=== PATIENT | male | born 1940 | race Caucasian/White ===

== ENCOUNTER → 2017-10-26 07:43 | Outpatient (CLI) | payer MEDICARE, SELFPAY ==
[2017-10-26 09:49] LABS: AST(SGOT) 16 U/L (15-37); Alanine Aminotransfer ALT/SGPT 23 U/L (16-61); Albumin, Serum 3.7 g/dL (3.2-5.0); Alkaline Phosphatase 75 U/L (45-117); Bilirubin, Direct 0.16 mg/dL (0.00-0.30); Cholesterol 151 mg/dL (200); High Density Lipoprotein 45 mg/dL; Protein, Total 6.7 g/dL (6.4-8.2); Triglycerides 112 mg/dL; Very Low Density Lipoprotein 22 mg/dL (5-40)
== END ==
PROVIDERS: Family Provider Family Medicine; PCP Family Medicine; Visit Provider Internal Medicine Cardiovascular Disease
DX: E78.5 Hyperlipidemia, unspecified (principal); I25.10 Atherosclerotic heart disease of native coronary artery without angina pectoris
CPT/HCPCS: 36415; 80061; 80076

== ENCOUNTER → 2018-02-08 12:11 | Outpatient (CLI) | payer MEDICARE, SELFPAY ==
[2017-10-30 10:09] VITALS: BMI 31.1
[2018-02-08 14:21] LABS: Absolute Lymphocyte Count 1.25 X10^3/ul (0.83-4.51); Absolute Neutrophil Count 3.3 X10^3/uL (2.0-7.7); Basophil# 0.03 X10^3/uL; Basophil% 0.6 % (0-1); Eosinophil# 0.12 X10^3/uL; Eosinophils% 2.4 % (0-5); Hematocrit 44.2 % (40-54); Hemoglobin 14.7 g/dl (13.0-16.5); Lymphocyte # 1.25 X10^3/ul (4.0); Lymphocyte % 24.5 % (19-41); Mean Corp Hgb Conc 33.3 g/gl (32-36); Mean Corpuscular Volume 99.1 fL (80-94); Mean Platelet Vol. 11.1 fl (6.2-12.0); Monocyte# 0.43 X10^3/uL; Monocyte% 8.4 % (0-10); Neutrophil # 3.27 X10^3/uL (2.7-7.7); Neutrophil % 64.1 % (47-70); Platelet Count 200 K/mm3 (150-450); RBC Distribution Width CV 14.3 % (11.6-14.6); RBC Distribution Width SD 51.5 fl (35.1-43.9); Red Blood Count 4.46 M/mm3 (4.6-6.2); White Blood Count 5.1 K/mm3 (4.4-11.0)
[2018-02-08 14:29] LABS: POSITIVE COUNT NO; POSITIVE DIFFERENTIAL NO; POSITIVE MORPHOLOGY NO
[2018-02-08 14:33] LABS: Erythrocyte Sedimentation Rate 14 mm/hr (0-20)
[2018-02-08 14:39] LABS: Vitamin B12 390 pg/mL (211-911); Vitamin D,25 Hydroxy 31.4 ng/mL (29.95-100.01)
[2018-02-08 14:49] LABS: ALB/GLOB Ratio 1.2 RATIO (0.9-2.4); AST(SGOT) 20 U/L (15-37); Alanine Aminotransfer ALT/SGPT 28 U/L (16-61); Albumin, Serum 3.7 g/dL (3.2-5.0); Alkaline Phosphatase 80 U/L (45-117); Anion Gap 11 (5-15); BUN 16 mg/dL (7-18); BUN/Creat Ratio 18.4 RATIO (10-20); Calcium,Total 8.9 mg/dL (8.5-10.1); Chloride 103 mmol/L (98-107); Creatinine, Serum 0.87 mg/dL (0.70-1.30); EST Glomerular Filtration Rate 90 mL/min (>60); Est Glom Filt Rate - Afr Amer 109 mL/min (>60); Globulin 3.2 g/dL (2.2-4.2); Glucose 82 mg/dL (74-106); Iron 88 ug/dL (65-175); Potassium 4.2 mmol/L (3.5-5.1); Protein, Total 6.9 g/dL (6.4-8.2); Sodium Level 141 mmol/L (136-145); Thyroid Stim Hormone (TSH) 4.25 uIU/mL (0.358-3.74)
[2018-02-09 08:49] LABS: Free T3 2.2 pg/mL (2.18-3.98); T4 Free Direct 0.78 ng/dL (0.76-1.46)
== END ==
PROVIDERS: Family Provider Family Medicine; PCP Family Medicine; Visit Provider Family Medicine
DX: R41.3 Other amnesia (principal); Z86.73 Personal history of transient ischemic attack (TIA), and cerebral infarction without residual deficits; R79.89 Other specified abnormal findings of blood chemistry; E55.9 Vitamin D deficiency, unspecified
CPT/HCPCS: 36415; 80053; 82306; 82607; 83540; 84439; 84443; 84481; 85025; 85652

== ENCOUNTER → 2018-02-26 12:59 | Outpatient (CLI) | payer MEDICARE, SELFPAY ==
--- NOTE | 2018-02-26 13:08 | CDU_ITS ---
Reason For Study: TIA Rt. Velocities/BP Lt. Velocities/BP Prox CCA 104.0/12.3 cm/sec. Prox CCA 103.0/15.7 cm/sec. Mid CCA 100.0/15.2 cm/sec. Mid CCA 71.5/16.5 cm/sec. Dist CCA 103.0/17.0 cm/sec. Dist CCA 73.3/14.1 cm/sec. Prox ICA 86.1/12.1 cm/sec. Prox ICA 57.4/13.0 cm/sec. Mid ICA 72.7/16.4 cm/sec. Mid ICA 94.4/27.6 cm/sec. Dist ICA 84.4/18.2 cm/sec. Dist ICA 58.0/15.5 cm/sec. Rt. ICA/CCA = 86.1/100.0=0.9. Lt. ICA/CCA = 94.4/71.5=1.3. Prox ECA 141.0/9.43 cm/sec. Prox ECA 123.0/11.7 cm/sec. Rt. Vert. 41.2/9.43 cm/sec. Lt. Vert. 44.41/10.6 cm/sec. Right Extracranial There is intimal thickening but no significant atherosclerotic plaque noted in the right common carotid artery. There is intimal thickening but no significant atherosclerotic plaque noted in the right internal carotid artery. There is no significant atherosclerotic plaque noted in the right external carotid artery. Antegrade flow is noted in the right vertebral artery. Left Extracranial There is homogeneous, smooth atherosclerotic plaque noted in the left common carotid artery. There is intimal thickening but no significant atherosclerotic plaque noted in the left internal carotid artery. There is intimal thickening but no significant atherosclerotic plaque noted in the left external carotid artery. Antegrade flow is noted in the left vertebral artery. Interpretation Summary No significant atherosclerotic plaque or stenosis noted in the internal carotid arteries bilaterally. Flow within the vertebral arteries is antegrade bilaterally. Ordering Physician: Baldomero Yen Referring Physician: Baldomero Yen Performed By: Poppy Burch, DICK, RVT
--- NOTE | 2018-02-26 13:34 | CT_ITS ---
STUDY: CT BRAIN WITHOUT CONTRAST REASON FOR EXAM: Male, 77 years old. TIA RADIATION DOSAGE (If Supplied By Facility): CTDIvol = ( 60.81 ) mGy, DLP = ( 1021.47 ) mGycm TECHNIQUE: Transaxial CT imaging of the brain was performed without administration of intravenous contrast material. Individualized dose optimization techniques were used for this CT. COMPARISON: None. FINDINGS: There is cerebral atrophy with widening of the extra-axial spaces and ventricular dilatation. There are areas of decreased attenuation within the white matter tracts of the supratentorial brain, consistent with microvascular disease changes. There is no intracranial hemorrhage. There are no findings of an acute ischemic infarction. There is a right mastoid and middle ear opacification. Normal visualized paranasal sinuses. CT/Brain/Head without Contrast IMPRESSION: No acute intracranial abnormality. Right otomastoid disease. Electronically Signed: Yi De Leon MD at 10:11 EST Tel , Service support ,
--- OUTSIDE RECORDS SUMMARY | 2018-04-14 08:13 | XMS RPT_ITS ---
:1940 Author Organization OHIP Support Name Relationship Address Phone R Unavailable Unavailable Unavailable KENROY, SAMIRA Unavailable [address] + [place] [address] R Unavailable Unavailable Unavailable KENROY, SAMIRA Unavailable [address] + [place] [address] R Unavailable Unavailable Unavailable KENROY, SAMIRA Unavailable [address] + [place] [address] R Unavailable Unavailable Unavailable KENROY, SAMIRA Unavailable [address] + [place] [address] R Unavailable Unavailable Unavailable KENROY, SAMIRA Unavailable [address] + [place] [address] R Unavailable Unavailable Unavailable KENROY, SAMIAR Unavailable [address] + [place] [address] R Unavailable Unavailable Unavailable KENROY, SAMIRA Unavailable [address] + [place] [address] R Unavailable Unavailable Unavailable KENROY, SAMIRA Unavailable [address] + [place] [address] R Unavailable Unavailable Unavailable KENROY, SAMIRA Unavailable [address] + [place] [address] R Unavailable Unavailable Unavailable KENROY, SAMIRA Unavailable [address] + [place] [address] R Unavailable Unavailable Unavailable KENROY, SAMIRA Unavailable [address] + [place] [address] Care Team Providers Name Role Phone Baldomero Yen Attending Unavailable Baldomero Yen Referring Unavailable Baldomero Yen Primary Care Unavailable Baldomero Yen Attending Unavailable Baldomero Yen Referring Unavailable Baldomero Yen Primary Care Unavailable Richar Treadwell Attending Unavailable Ranney, Christopher Referring Unavailable Booth, Roxy Attending Unavailable Moodispaw, Richar Attending Unavailable Ranney, Christopher Referring Unavailable Joseph Alfaro Attending Unavailable Yovana, Baldomero Referring Unavailable Moodispaw, Richar Attending Unavailable Ranney, Christmercedeser Referring Unavailable Ranney, Christopher Primary Care Unavailable Moodispaw, Richar Attending Unavailable Moodispaw, Richar Referring Unavailable Ranney, Christopher Primary Care Unavailable Booth, Roxy Attending Unavailable Moodispaw, Richar Attending Unavailable Ranney, Christopher Referring Unavailable Ranney, Christopher Primary Care Unavailable Ranney, Christmercedeser Attending Unavailable Ranney, Christopher Primary Care Unavailable PROBLEMS PROBLEMS DATE TYPE CONDITION / CODE ATTENDING STATUS SOURCE 10/19/2017 Unknown I25.10 - Richar Treadwell Active [place] 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 without angina pectoris / I25.10(ICD-10) 10/19/2017 Unknown E78.5 - Richar Treadwell Active [place] Hyperlipidemia, Community unspecified / Hospital E78.5(ICD-10) Repository PROCEDURES PROCEDURES No Procedure Records FoundRESULTS RESULTS ECHOCARDIOGRAM COMPLETE Observed: 03/03/2018 Status: F Source: [place] 12:29 PM [facility] REPOSITORY [facility] Cardiovascular Services [address] [place] [address] Echo Complete 03/03/18 1000 MR#: [id number] Acct: [id number] Name: BUBBA JASMINE Rep #: [id number] : 1940 77 From: Joseph Alfaro MD Attending Dr: Baldomero Yen MD Status: REG CLI Ordering Dr: Michael Yen MD Date: 03/03/18 Location: [facility] Sex: M C Admitted: Reason For Study: TIA Procedure This was a 2D Doppler, Color Flow transthoracic echocardiogram. Exam performed in department. Left Ventricle Normal size and thickness. The estimated ejection fraction is 65 %. Stage 1 diastolic dysfunction. No regional wall motion abnormalities noted. Right Ventricle Mildly dilated right ventricle. Normal systolic function. Atria The left atrium is mildly enlarged. The right atrium is mildly enlarged. Normal atrial septum. Bubble contrast study negative for right to left interatrial shunt. Mitral Valve The mitral valve is structurally normal. No prolapse or stenosis seen. Trivial mitral valve insufficiency. Tricuspid Valve Normal tricuspid valve. Trivial tricuspid valve insufficiency. Right ventricular systolic pressure estimated to be 29 mmHg. Aortic Valve Trisinus/trileaflet aortic valve. Mild diffuse aortic valve thickening. Trivial aortic valve insufficiency. Pulmonic Valve Normal pulmonic valve. Great Vessels Normal aortic root. Normal arch. Normal inferior vena cava. Inferior vena cava collapse with sniff. Pericardium/Pleural No pericardial effusion. Medication 22 gauge I.V. with prn adaptor inserted into right arm. Performed a rapid injection of agitated mix of 9 cc saline and 1cc air to assess for atrial septal defect. MMode/2D Measurements AND Calculations LVIDd: 5.2 cm IVSd: 1.1 cm Ao root diam: 4.2 cm LVIDs: 2.9 cm LVPWd: 1.2 cm LA dimension: 3.7 cm RVDd: 3.8 cm FS: 43.6 % LAV(MOD-bp): 73.6 ml LA A4 area: 22.5 cm2 RA A4 area: 21.4 cm2 LAV(MOD-bp) Indexed: 34.2 ml/m2 LAV(MOD-sp2): 82.0 ml LAV(MOD-sp4): 65.3 ml Time Measurements MV dec time: 0.23 sec Doppler Measurements AND Calculations MV E max jose eduardo: 77.1 cm/sec Lat Peak E' Ojse Eduardo: 8.9 cm/sec Med Peak E' Jose Eduardo: 6.2 cm/sec MV A max jose eduardo: 90.2 cm/sec E/E' lat: 8.7 E/E' med: 12.4 MV E/A: 0.85 MV V2 max: 95.3 cm/sec MV P1/2t max jose eduardo: 88.6 cm/sec Ao V2 max: 128.3 cm/sec MV max P.6 mmHg MV P1/2t: 97.7 msec Ao max P.6 mmHg MV V2 mean: 48.6 cm/sec MV dec slope: 265.7 cm/sec2 Ao V2 mean: 88.9 cm/sec MV mean P.2 mmHg Ao mean P.6 mmHg MV V2 VTI: 33.2 cm MVA(P1/2t): 2.3 cm2 Ao V2 VTI: 31.2 cm AI max jose eduardo: 347.5 cm/sec LV V1 max: 91.1 cm/sec PA V2 max: 76.1 cm/sec AI max P.5 mmHg LV V1 max P.3 mmHg AI dec slope: 199.6 cm/sec2 LV V1 mean P.4 mmHg AI P1/2t: 509.9 msec LV V1 mean: 52.6 cm/sec LV V1 VTI: 22.3 cm TR max jose eduardo: 244.1 cm/sec TR max P.8 mmHg Interpretation Summary The estimated ejection fraction is 65 %. Stage 1 diastolic dysfunction. Mildly dilated right ventricle. The left atrium is mildly enlarged. Trivial mitral valve insufficiency. Trivial tricuspid valve insufficiency. Right ventricular systolic pressure estimated to be 29 mmHg. Bubble contrast study negative for right to left interatrial shunt. Trivial aortic valve insufficiency. There is no comparison study available. Ordering Physician: Baldomero Yen Referring Physician: Baldomero Yen Performed By: Lew Harrington RCS 03/03/18 1228 Date Joseph Alfaro MD CC: Baldomero Yen MD Date Dictated: 03/03/18 1000 Date Transcribed: 03/03/18 1228 Laundrette Owner: Signed CAROTID DUPLEX Observed: 02/28/2018 Status: F Source: [place] ULTRASOUND 10:11 AM [facility] REPOSITORY [facility] Cardiovascular Services [address] [place] [address] Carotid Duplex Ultrasound 02/26/18 1311 MR#: [id number] Acct: [id number] Name: BUBBA JASMINE Rep #: [id number] : 1940 77 From: Chico Mosher MD Attending Dr: Baldomero Yen MD Status: REG CLI Ordering Dr: Michael Yen MD Date: 02/26/18 Location: [facility] Sex: M C Admitted: Reason For Study: TIA Rt. Velocities/BP Lt. Velocities/BP Prox CCA 104.0/12.3 cm/sec. Prox CCA 103.0/15.7 cm/sec. Mid CCA 100.0/15.2 cm/sec. Mid CCA 71.5/16.5 cm/sec. Dist CCA 103.0/17.0 cm/sec. Dist CCA 73.3/14.1 cm/sec. Prox ICA 86.1/12.1 cm/sec. Prox ICA 57.4/13.0 cm/sec. Mid ICA 72.7/16.4 cm/sec. Mid ICA 94.4/27.6 cm/sec. Dist ICA 84.4/18.2 cm/sec. Dist ICA 58.0/15.5 cm/sec. Rt. ICA/CCA = 86.1/100.0=0.9. Lt. ICA/CCA = 94.4/71.5=1.3. Prox ECA 141.0/9.43 cm/sec. Prox ECA 123.0/11.7 cm/sec. Rt. Vert. 41.2/9.43 cm/sec. Lt. Vert. 44.41/10.6 cm/sec. Right Extracranial There is intimal thickening but no significant atherosclerotic plaque noted in the right common carotid artery. There is intimal thickening but no significant atherosclerotic plaque noted in the right internal carotid artery. There is no significant atherosclerotic plaque noted in the right external carotid artery. Antegrade flow is noted in the right vertebral artery. Left Extracranial There is homogeneous, smooth atherosclerotic plaque noted in the left common carotid artery. There is intimal thickening but no significant atherosclerotic plaque noted in the left internal carotid artery. There is intimal thickening but no significant atherosclerotic plaque noted in the left external carotid artery. Antegrade flow is noted in the left vertebral artery. Interpretation Summary No significant atherosclerotic plaque or stenosis noted in the internal carotid arteries bilaterally. Flow within the vertebral arteries is antegrade bilaterally. Ordering Physician: Baldomero Yen Referring Physician: Baldomero Yen Performed By: Poppy Burch, DICK, RVT 02/28/18 1011 Date Chico Mosher MD CC: Baldomero Yen MD Date Dictated: 02/26/18 1311 Date Transcribed: 02/28/18 1011 Laundrette Owner: Signed BRAIN/HEAD WITHOUT Observed: 02/26/2018 Status: F Source: [place] CONTRAST 1:35 PM [facility] REPOSITORY [facility] Imaging Services [address] [place] [address] Brain/Head without Contrast MR#: [id number] Acct: [id number] Name: BUBBA JASMINE Rep #: [id number] : 1940 M 77 From: Yi De Leon PCP: Baldomero Yen MD Status: REG CLI Study: Brain/Head without Contrast Date of Exam: 02/26/18 Exam# [id number] Ordering Dr: Michael Yen MD STUDY: CT BRAIN WITHOUT CONTRAST REASON FOR EXAM: Male, 77 years old. TIA RADIATION DOSAGE (If Supplied By Facility): CTDIvol = ( 60.81 ) mGy, DLP = ( 1021.47 ) mGycm TECHNIQUE: Transaxial CT imaging of the brain was performed without administration of intravenous contrast material. Individualized dose optimization techniques were used for this CT. COMPARISON: None. FINDINGS: There is cerebral atrophy with widening of the extra-axial spaces and ventricular dilatation. There are areas of decreased attenuation within the white matter tracts of the supratentorial brain, consistent with microvascular disease changes. There is no intracranial hemorrhage. There are no findings of an acute ischemic infarction. There is a right mastoid and middle ear opacification. Normal visualized paranasal sinuses. CT/Brain/Head without Contrast IMPRESSION: No acute intracranial abnormality. Right otomastoid disease. Electronically Signed: Yi De Leon MD at 10:11 EST Tel , Service support , CC: Baldomero Yen MD Laundrette Owner: Signed CBC W/DIFF, AUTOMATED Collected: 02/08/2018 Status: F Source: [place] 12:12 PM [facility] REPOSITORY TYPE CODE TESTS RESULT OUT OF RANGE REFERENCE UNITS LAB L100.1000 4.4-11.0 K/mm3 Normal WBC 5.1 LAB L100.1200 4.6-6.2 M/mm3 Low RBC 4.46 LAB L100.1300 13.0-16.5 g/dl Normal HGB 14.7 LAB L100.1400 40-54 % Normal HCT 44.2 LAB L100.1500 80-94 fL High MCV 99.1 LAB L100.1600 27.0-32.0 pg High MCH 33.0 LAB L100.1700 32-36 g/gl Normal MCHC 33.3 LAB L100.1810 11.6-14.6 % Normal RDW CV 14.3 LAB L100.1820 35.1-43.9 fl High RDW SD 51.5 LAB L100.1900 150-450 K/mm3 Normal PLT 200 LAB L100.2000 6.2-12.0 fl Normal MPV 11.1 LAB L100.2100 47-70 % Normal NEUT% 64.1 LAB L100.2200 19-41 % Normal LY% 24.5 LAB L100.2300 0-10 % Normal MONO% 8.4 LAB L100.2400 0-5 % Normal EO% 2.4 LAB L100.2500 0-1 % Normal BASO% 0.6 LAB L100.2550 0.0-0.9 % Normal IM GRAN % 0.000 Result Comment: IG% - Immature Granulocytes (promyelocytes, myelocytes and metamyelocytes) > 1% indicates that a LEFT SHIFT is Present. LAB L100.2620 2.0-7.7 X10 3/uL Normal Absolute Neut 3.3 LAB L100.2720 0.83-4.51 X10 3/ul Normal Absolute Lymph 1.25 Performed By: #### L100.0100, L101.9900 #### [facility] [address] [place], [address] ERYTHROCYTE SED RATE Collected: 02/08/2018 Status: F Source: [place] 12:12 PM [facility] REPOSITORY TYPE CODE TESTS RESULT OUT OF RANGE REFERENCE UNITS LAB L102.0000 0-20 mm/hr Normal SED RATE 14 Performed By: #### L100.0100, L101.9900 #### [facility] [address] [place], [address] VITAMIN B12 Collected: 02/08/2018 Status: F Source: [place] 12:12 PM [facility] REPOSITORY TYPE CODE TESTS RESULT OUT OF RANGE REFERENCE UNITS LAB L503.0105 211-911 pg/mL Normal Vitamin B12 390 Performed By: #### L503.0105, L506.1000 #### [facility] [address] [place], [address] VITAMIN D,25 HYDROXY Collected: 02/08/2018 Status: F Source: [place] 12:12 PM [facility] REPOSITORY TYPE CODE TESTS RESULT OUT OF RANGE REFERENCE UNITS LAB L506.1000 29.95-100.01 ng/mL Normal Vitamin D 31.4 25-OH Result Comment: Vitamin D 25(OH) Status Range Deficiency <20 ng/mL (50nmol/L) Insuffciency 20 - 30 ng/mL (50 - 75 nmol/L) Sufficiency 30 - 100 ng/mL (75 - 250 nmol/L) Toxicity >100 ng/mL (>250 nmol/L) Performed By: #### L503.0105, L506.1000 #### [facility] [address] [place], [address] COMPREHENSIVE METABOLIC Collected: 02/08/2018 Status: F Source: [facility] 12:12 PM [facility] REPOSITORY Order Comment: PLEASE ADD ON T3F T4F TO BLOOD DRAWN 02/08/18 PER TYPE CODE TESTS RESULT OUT OF RANGE REFERENCE UNITS LAB L501.0100 74-106 mg/dL Normal GLU 82 Result Comment: Please note revised GLUCOSE reference range effective 2017. LAB L501.1000 7-18 mg/dL Normal BUN 16 LAB L501.1100 0.70-1.30 mg/dL Normal CREAT,SERUM 0.87 Result Comment: The validity of the calculated GFR AND GFRAA in patients over 70 years has not been determined. Clinical correlation is essential. LAB L501.1110 >60 mL/min Normal EST GFR 90 Result Comment: Non- GFR Calc LAB L501.1115 >60 mL/min Normal EST GFR - AA 109 Result Comment: GFR Calc LAB L501.1300 10-20 RATIO Normal BUN/CRE 18.4 LAB L501.1500 6.4-8.2 g/dL T Normal PROT 6.9 LAB L501.1800 3.2-5.0 g/dL Normal ALB 3.7 LAB L501.1950 2.2-4.2 g/dL Normal GLOB 3.2 LAB L501.2000 0.9-2.4 RATIO Normal A/G 1.2 LAB L501.2200 8.5-10.1 mg/dL CA Normal 8.9 LAB L501.4100 15-37 U/L Normal AST 20 LAB L501.4305 45-117 U/L Normal ALK P 80 LAB L501.4405 16-61 U/L Normal ALT 28 LAB L501.4600 0.20-1.00 mg/dL T Normal BILI 0.50 LAB L501.5300 136-145 mmol/L NA Normal 141 LAB L501.5600 3.5-5.1 mmol/L K Normal 4.2 LAB L501.5900 98-107 mmol/L CL Normal 103 LAB L501.6100 21.0-32.0 mmol/L Normal CO2 27.0 LAB L501.6200 5-15 Normal GAP 11 Performed By: #### L500.4050, L501.9520, L503.6150, L501.30052, L506.0400 #### [facility] [address] [place] [address] [place], [address] THYROID STIM HORMONE Collected: 02/08/2018 Status: F Source: [place] (TSH) 12:12 PM [facility] REPOSITORY Order Comment: PLEASE ADD ON T3F T4F TO BLOOD DRAWN 02/08/18 PER TYPE CODE TESTS RESULT OUT OF RANGE REFERENCE UNITS LAB L501.9520 0.358-3.74 uIU/mL High TSH 4.25 Performed By: #### L500.4050, L501.9520, L503.6150, L501.77820, L506.0400 #### [facility] [address] [place], [address] IRON Collected: 02/08/2018 Status: F Source: [place] 12:12 PM [facility] REPOSITORY Order Comment: PLEASE ADD ON T3F T4F TO BLOOD DRAWN 02/08/18 PER TYPE CODE TESTS RESULT OUT OF RANGE REFERENCE UNITS LAB L503.6150 65-175 ug/dL Normal IRON 88 Performed By: #### L500.4050, L501.9520, L503.6150, L501.59165, L506.0400 #### [facility] [address] [place], [address] FREE T3 Collected: 02/08/2018 Status: F Source: [place] 12:12 PM [facility] REPOSITORY Order Comment: PLEASE ADD ON T3F T4F TO BLOOD DRAWN 02/08/18 PER TYPE CODE TESTS RESULT OUT OF RANGE REFERENCE UNITS LAB L501.19583 2.18-3.98 pg/mL Normal FREE T3 2.2 Performed By: #### L500.4050, L501.9520, L503.6150, L501.94180, L506.0400 #### [facility] [address] [place], [address] T4 FREE DIRECT Collected: 02/08/2018 Status: F Source: [place] 12:12 PM [facility] REPOSITORY Order Comment: PLEASE ADD ON T3F T4F TO BLOOD DRAWN 02/08/18 PER TYPE CODE TESTS RESULT OUT OF RANGE REFERENCE UNITS LAB L506.0400 0.76-1.46 ng/dL Normal T4 FREE 0.78 DIRECT Performed By: #### L500.4050, L501.9520, L503.6150, L501.81094, L506.0400 #### [facility] [address] [place], [address] CARDIOLOGY VISIT Observed: 10/30/2017 Status: F Source: [place] REPORT 3:34 PM [facility] REPOSITORY [facility] [address] [place] [address] OFFICE VISIT Date of Service: 10/30/17 MR#: [id number] Acct: [id number] Name: BUBBA JASMINE Rep #: [id number] : 1940 Provider: Richar Treadwell MD Age/Sex: 77/M [place] [facility] Status: Signed HPI HPI Details: BUBBA JASMINE, is a 77 M who presents to the office today for outpatient cardiovascular follow-up. He denies any ongoing episodes of palpitations/ectopy, near-syncope/syncope, resting or exertional chest discomfort, or resting or exertional shortness of breath/dyspnea. There is been no obvious ongoing peripheral pitting edema. He states overall he is doing well at this time. He had his lipid labs performed recently on 10/26/2017. His total cholesterol was 151 with an LDL of 84 and an HDL of 45 and a triglyceride level of 112. His AST ALT and alkaline phosphatase were within normal range. Intake Vital Signs10/30/17 Height 5 ft 10 in 10/30/17 Weight: 217 lb 10/30/17 Body Mass Index (BMI) 31.1 10/30/17 Blood Pressure 124/60 Intake Visit Reasons: 1 y fu Allergies Zfjjkdl-Dey-Puo Reductase Inhibitor Adverse Reaction (Severe, Verified 10/30/17 10:09) Intolerence, Myalgias Medications ascorbic acid (vitamin C) 1,000 mg tablet 1 g PO QDAY tab 08/12/17 [History Confirmed 10/30/17] aspirin 81 mg tablet,delayed release 81 mg PO QDAY 08/12/17 [History Confirmed 10/30/17] lactobacillus combination no.8 3 billion cell capsule 3,000 mmu cells PO QDAY 08/12/17 [History Confirmed 10/30/17] omega-3 fatty acids 1,000 mg capsule 1,000 mg PO QDAY 08/12/17 [History Confirmed 10/30/17] vit C 150 mg-vit E 30 unit-lutein 5 sr-hbqycmkl-aohtm 3 150 mg capsule 1 cap PO BID cap 08/12/17 [History Confirmed 10/29/17] cholecalciferol (vitamin D3) 1,000 unit capsule 2,000 unit PO BID cap 10/30/17 [History Confirmed 10/30/17] [facility] Medical History Hyperlipidemia (Chronic) 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) Arthritis (Chronic) Diverticulitis (Chronic) GERD (gastroesophageal reflux disease) (Chronic) YAZMIN (obstructive sleep apnea) (Chronic) Surgical History History of cataract surgery (Resolved) History of cholecystectomy (Resolved) History of hernia repair (Resolved) History of knee replacement procedure of left knee (Resolved) History of knee replacement procedure of right knee (Resolved) Family History Father CHF (congestive heart failure) Mother CAD (coronary artery disease) Sister Hypertension Social History Smoking Status: Never smoker alcohol intake: never ROS Const Const: Negative for fatigue, weakness, weight gain, weight loss, frequent falls or excessive sweating Eyes Eyes: Negative for change in vision, blurry vision or transient loss of vision ENT ENT: Negative for dizziness or balance problems Cardio Chest Pain: No Palpitations: No Edema: None Muscle aches with walking: None Resp Respiratory: Negative for SOB with activity or SOB at rest GI GI: Negative vomiting or vomiting blood/hematemesis : Negative for hematuria Musc Musc: Negative for balance problems, muscle aches/ myalgia, muscle weakness or joint pain Skin Skin: Negative non-healing lesions or rash Neuro Neuro: Negative for weakness, blurry vision, dizziness, lightheadedness, frequent falls or orthostatic symptoms Mario Hematologic/Lymphatic: Negative for easy bleeding Endo Endo: Negative for fatigue or excessive sweating Psych Psych: Negative for anxiety or depression Allergy Allergy/Immunology: Negative for hives, Negative for rash Cardiology Exam Const Appearance: cooperative, healthy appearing, comfortable, no acute distress, well developed and well groomed Nutritional Appearance: average body habitus Orientation: alert, awake and oriented x3 Head Head: normal to inspection, normocephalic and atraumatic Ears: hearing grossly normal bilaterally Nose: external nose normal Face and Sinus: face symmetric Mouth: oral mucosae normal Teeth and gingiva: fair dentition Eyes Eyelids: eyelids normal Conjunctivae: conjunctivae normal Pupils: PERRL EOM: EOM intact bilaterally Neck Neck: normal visual inspection and full ROM Chest Chest inspection: normal inspection of the chest and symmetric chest movement Auscultation: Bilateral: Clear to Auscultation Cardio Palpation: normal PMI Rate: regular rate Rhythm: regular rhythm Heart sounds: S1 normal and S2 normal GI GI: normal to inspection, bowel sounds present, soft and no hepatosplenomegaly Neuro General: alert, awake, oriented x3 and moves all extremities Skin Skin: no rashes or lesions noted Extremities Pulses: Normal: Right Radial Pulse, Left Radial Pulse Lower Extremity Edema: None: Bilateral Psych Psychological: normal affect Supplemental Info He did have a transthoracic echocardiogram performed at [facility] on 03/26/2001. Per the report the left ventricle was thought to demonstrate mild distal lateral hypokinesis with an LVEF of 50%, the cardiac valves were considered structurally normal. He had a exercise tolerance test/stress nuclear imaging study performed on 07/01/2011. Per the myocardial perfusion report he had no evidence of previous myocardial injury/infarction or stress-induced myocardial ischemia. His gated LVEF was 60%. He did have a diagnostic cardiac catheterization performed at [facility] on 08/11/2001. At that time he had the following. 1. Borderline to mild. elevation of left ventricular end- diastolic pressure pre and post angiographic dye load. 2. Left ventricle--normal left ventricular size, wall motion, systolic function with estimated post. procedure left ventricular ejection fraction 55 to 60 percent, 3. Left main--angiographically normal. 4. Left anterior descending--mid 10 to 25 percent somewhat concentric appearing stenosis, 5. Left circumflex artery: Angiographically normal. 6. Right coronary artery--proximal 0 to 3.0 percent minimal luminal irregularities. He had a Holter monitor performed on 10/06/2002. Per the report he had sinus rhythm with rare PACs and a rare isolated PVC. He had one 3 beat run of an SVT at 141 bpm. He had a 30 day ambulatory event monitor performed in June - July 2010. At that time he had sinus rhythm/sinus arrhythmia including sinus bradycardia with first-degree AV block. Assessment AND Plan 1. Atherosclerosis of zuni coronary artery of zuni heart without angina pectoris I25.10 Mild Plan At the present time he does need to continue risk factor evaluation and care. He has been doing well overall without obvious symptoms. His lipid profile has remained under reasonably good control. He will continue to be followed. 2. Hyperlipidemia, unspecified hyperlipidemia type E78.5 Plan His lipid profile has been reviewed as noted above. He will continue his current therapy and follow-up. Plan Detail Additional Comments Thank you for allowing me to participate in the care of your patient. Please don't hesitate to call if any issues arise. This note was generated using a voice recognition system and there may be incorrect words, spelling or punctuation that were not noted when reviewing the office note prior to saving. Follow Up 1 Year (PFM) Coding Level of Care Code Off vis,est,level 3 Diagnoses Atherosclerosis of zuni coronary artery of zuni heart without angina pectoris I25.10 [place] vs. transplanted heart: zuni heart Hyperlipidemia, unspecified hyperlipidemia type E78.5 Hyperlipidemia type: unspecified Coding Level of Care Code Off vis,est,level 3 Diagnoses Atherosclerosis of zuni coronary artery of zuni heart without angina pectoris I25.10 [place] vs. transplanted heart: zuni heart Hyperlipidemia, unspecified hyperlipidemia type E78.5 Hyperlipidemia type: unspecified 10/30/17 1534 <Electronically signed by Richar Treadwell MD> Date Rihcar Treadwell MD Cosigner Signature: Date (if applicable) CC: Baldomero Yen MD LIVER PROFILE Collected: 10/26/2017 Status: F Source: [place] 7:46 AM [facility] REPOSITORY TYPE CODE TESTS RESULT OUT OF RANGE REFERENCE UNITS LAB L501.1500 6.4-8.2 g/dL Normal T PROT 6.7 LAB L501.1800 3.2-5.0 g/dL Normal ALB 3.7 LAB L501.1950 2.2-4.2 g/dL Normal GLOB 3.0 LAB L501.4100 15-37 U/L Normal AST 16 LAB L501.4305 45-117 U/L Normal ALK P 75 LAB L501.4405 16-61 U/L Normal ALT 23 LAB L501.4600 0.20-1.00 mg/dL Normal T BILI 0.50 LAB L501.4700 0.00-0.30 mg/dL Normal D BILI 0.16 Performed By: #### L500.3400, L500.4100 #### [facility] [address] [place], [address] LIPID PROFILE Collected: 10/26/2017 Status: F Source: VISHAL 7:46 AM [facility] REPOSITORY TYPE CODE TESTS RESULT OUT OF RANGE REFERENCE UNITS LAB L501.4900 200 mg/dL Normal CHOL 151 Result Comment: <200 mg/dL Desirable 200-240 mg/dL Borderline >240 mg/dL High Risk LAB L501.5000 mg/dL Normal TRIG 112 Result Comment: The drugs N-Acetylcysteine and Metamizole may falsely depress this assay. Serum Triglycerides Reference Interval Normal <150 mg/dL Borderline high 150 - 199 mg/dL High 200 - 499 mg/dL Very High > or = 500 mg/dL LAB L501.6400 mg/dL Normal HDL 45 Result Comment: The drugs N-Acetylcysteine and Metamizole may falsely depress this assay. Reference Range HDL <40 mg/dL Low HDL Cholesterol HDL >or= 60 mg/dL High HDL Cholesterol LAB L501.6500 0-130 mg/dL Normal LDL 84 LAB L501.6600 5-40 mg/dL Normal VLDL 22 Performed By: #### L500.3400, L500.4100 #### [facility] [address] [place], [address] 12 LEAD EKG PERFORMED Observed: 10/19/2017 Status: F Source: [place] [facility] [place]:37 AM [facility] REPOSITORY [facility] [address] [place] [address] 12 Lead EKG performed by [facility] 10/19/17 1136 MR#: [id number] Acct: [id number] Name: BUBBA JASMINE Rep #: [id number] : 1940 77 From: Richar Treadwell MD Attending Dr: Richar Treadwell MD Status: REG AMB Ordering Dr: Richar Treadwell MD Date: 10/19/17 Location: [facility] Sex: M C Admitted: [facility]12 Lead EKG performed by [facility] ECG Report Interpretation Sinus Bradycardia -First degree A-V block - frequent PAC s Left axis deviationLeft anterior fascicular blockPoor R wave progressionABNORMAL Electronically signed on 10/19/2017 at 12:52 by Richar Treadwell Software Version 8610 10/19/17 1253 Date Richar Treadwell MD CC: Baldomero Yen MD Date Dictated: 10/19/17 113 Date Transcribed: 10/19/17 113 Laundrette Owner: PM Signed ALLERGIES ALLERGIES DATE TYPE / CODE NAME / CODE REACTION SEVERITY SOURCE 10/30/2017 Drug Vbyxahe-Neg-Gbg Intole[place], SV [facility] Allergy/[address] [facility] 783669(SNOM Inhibitor/U21156 Repository ED CT) 4685(RXNORM) ENCOUNTERS ENCOUNTERS ADMIT/DISCHARGE ACCOUNT ADMITTING ENCOUNTER LOCATION SOURCE NUMBER CLASS 03/03/2018 [id number] Ambulatory Vishal [place] 2 [facility] ing:[facility] Repository 03/03/2018 [id number] Ambulatory BMSBuilding:W [place] 7 [facility] Repository 02/26/2018 [id number] Ambulatory Vishal [place] 9 [facility] ing:[facility] Repository 02/08/2018 [id number] Amb[place] 6 [facility] ing:MFPLAB Repository 10/30/2017/ [id number] Ambulatory BMSBuilding:B [place] 8 1 [facility] Repository 10/29/2017 [id number] Ambulatory BMSBuilding:B [place] 2 [facility] Repository 10/26/2017 [id number] Ambulatory [place] 1 [facility] ing:LAB Repository 10/19/2017/ [id number] Ambulatory BMSBuilding:B [place] 8 2 [facility] Repository 10/16/2017 [id number] Ambulatory BMSBuilding:B [place] 5 [facility] Repository 08/17/2017 [id number] Ambulatory BMSBuilding:B [place] 7 [facility] Repository 08/12/2017 [id number] Ambulatory BMSBuilding:B [place] 4 [facility] Repository PAYERS PAYERS ENCOUNTER GUARANTOR PAYER SUBSCRIBER SOURCE 03/03/2018 BUBBA E Primary BUBBA E [place]al [id number] Insurance:AETNA WILESDOB: [facility] Number: [id number]'s Hospital of TexasBH6GPYEffective Repository [address]Vcc: ([phone]) Date:8174-81-29KN [phone] () [id number] [address]PH: 03/03/2018 Secondary NOT GIVENUNK Vishal Insurance:SELF PAY [facility] Number: Effective Repository Date:2018-02-24 03/03/2018 BUBBA E Primary BUBBA E [place] [id number] Insurance:AETNA WILESDOB: [facility] Number: [id number] Medical Center – Central6GPYEffective Repository [address]Ygr: (330) Date:0682-09-67KB [phone] () [place]26[place] [address]LB: 03/03/2018 Secondary NOT GIVENUNK [place] Insurance:SELF PAY [facility] Number: Effective Repository Date:2018-03-03 02/26/2018 BUBBA E Primary BUBBA E [place] [id number] Insurance:AETNA WILESDOB: [facility] Number: [id number]'s Hospital of TexasBH6GPYEffective Repository [address]Bhg: ([phone]) Date:5753-96-31AG [phone] () 8277[place] [address]XC: 02/26/2018 Secondary NOT GIVENUNK [place] Insurance:SELF PAY [facility] Number: Effective Repository Date:2018-02-24 02/08/2018 BUBBA E Primary BUBBA E [place] [id number] Insurance:AETNA [facility] [place]: [id number] [id number] Repository [address]Els: (330) Date:7701-20-17ZO [phone] (HP) [id number] [place] [address]CJ: 02/08/2018 Secondary NOT GIVENUNK [place] Insurance:SELF PAY [facility] Number: Effective Repository Date:2018-02-08 10/30/2017 BUBBA E Primary BUBBA E [place] [id number] Insurance:AETNA [facility]ILESDOB[facility] Number: [id number] [id number] Repository [address]Nro: (330) Date:5609-39-31QM [phone] (HP) [id number] [place] [address]VZ: 10/30/2017 Secondary NOT GIVENUNK [place] Insurance:SELF PAY [facility] Number: Effective Repository Date:2017-10-30 10/29/2017 BUBBA E Primary BUBBA E [place] [id number] Insurance:AETNA WILESDOB: [facility] Number: [id number]'s Hospital of TexasBH6GPYEffective Repository [address]Xnf: (330) Date:8757-45-29DV [phone] (HP) [id number] [place] [address]QM: 10/29/2017 Secondary NOT GIVENUNK [place] Insurance:SELF PAY [facility] Number: Effective Repository Date:2017-10-29 10/26/2017 BUBBA E Primary BUBBA E [place] [id number] Insurance:AETNA WILESDOB: [facility] Number: [id number]'s Hospital of TexasBH6GPYEffective Repository [address]Xuo: (330) Date:8241-04-68JE [phone] (HP) [id number] [place] [address]XA: 10/26/2017 Secondary NOT GIVENUNK [place] Insurance:SELF PAY [facility] Number: Effective Repository Date:2017-10-26 10/19/2017 BUBBA E Primary BUBBA E [place] [id number] Insurance:AETNA WILESDOB: [facility] Number: [id number] [id number] Repository [address]Pmh: (330) Date:7093-61-07LM [phone] () [place]22[place] [address]VI: 10/19/2017 Secondary NOT GIVENUNK [place] Insurance:SELF PAY [facility] Number: Effective Repository Date:2017-10-19 10/16/2017 Bubba E Primary BUBBA E [place] [id number] Insurance:AETNA WILESDOB: [facility] Number: [id number] Scott & White Medical Center – TempleBH6GPYEffective Repository [address]Qka: ([phone]) Date:2296-01-82YH [phone] () 002067GB[place], [place] [address]IE: 10/16/2017 Secondary NOT GIVENUNK [place] Insurance:SELF PAY [facility] Number: Effective Repository Date:2017-08-27 08/17/2017 Bubba E Primary BUBBA E [place] [id number] Insurance:AETNA WILESDOB: [facility] Number: [id number] [id number] Repository [address]Jql: Date:5015-14-46ZZ [phone]~[facility] [id number] MIGUEL Á[place]EL [place] -3 () [address]BW: 08/17/2017 Secondary NOT GIVENUNK [place] Insurance:SELF PAY [facility] Number: Effective Repository Date:2017-03-05 08/12/2017 Bubba E Primary BUBBA E [place] [id number] Insurance:AETNA WILESDOB: [facility] Number: [id number] Scott & White Medical Center – TempleBH6GPYEffective Repository [address]Zqa: Date:7419-24-09MP [phone] [id number] GALE RAMIREZ -3 ([place]) [address]WP: 08/12/2017 Secondary NOT GIVENUNK [place] Insurance:SELF PAY [facility]: Effective Repository Date:2017-08-12
== END ==
PROVIDERS: Family Provider Family Medicine; PCP Family Medicine; Referring Provider Family Medicine; Visit Provider Family Medicine
DX: Z86.73 Personal history of transient ischemic attack (TIA), and cerebral infarction without residual deficits (principal)
CPT/HCPCS: 70450; 93880

== ENCOUNTER → 2018-03-03 09:55 | Outpatient (CLI) | payer MEDICARE, SELFPAY ==
--- NOTE | 2018-03-03 09:58 | ECHOD_ITS ---
Reason For Study: TIA Procedure This was a 2D Doppler, Color Flow transthoracic echocardiogram. Exam performed in department. Left Ventricle Normal size and thickness. The estimated ejection fraction is 65 %. Stage 1 diastolic dysfunction. No regional wall motion abnormalities noted. Right Ventricle Mildly dilated right ventricle. Normal systolic function. Atria The left atrium is mildly enlarged. The right atrium is mildly enlarged. Normal atrial septum. Bubble contrast study negative for right to left interatrial shunt. Mitral Valve The mitral valve is structurally normal. No prolapse or stenosis seen. Trivial mitral valve insufficiency. Tricuspid Valve Normal tricuspid valve. Trivial tricuspid valve insufficiency. Right ventricular systolic pressure estimated to be 29 mmHg. Aortic Valve Trisinus/trileaflet aortic valve. Mild diffuse aortic valve thickening. Trivial aortic valve insufficiency. Pulmonic Valve Normal pulmonic valve. Great Vessels Normal aortic root. Normal arch. Normal inferior vena cava. Inferior vena cava collapse with sniff. Pericardium/Pleural No pericardial effusion. Medication 22 gauge I.V. with prn adaptor inserted into right arm. Performed a rapid injection of agitated mix of 9 cc saline and 1cc air to assess for atrial septal defect. MMode/2D Measurements & Calculations LVIDd: 5.2 cm IVSd: 1.1 cm Ao root diam: 4.2 cm LVIDs: 2.9 cm LVPWd: 1.2 cm LA dimension: 3.7 cm RVDd: 3.8 cm FS: 43.6 % LAV(MOD-bp): 73.6 ml LA A4 area: 22.5 cm2 RA A4 area: 21.4 cm2 LAV(MOD-bp) Indexed: 34.2 ml/m2 LAV(MOD-sp2): 82.0 ml LAV(MOD-sp4): 65.3 ml Time Measurements MV dec time: 0.23 sec Doppler Measurements & Calculations MV E max jose eduardo: 77.1 cm/sec Lat Peak E' Jose Eduardo: 8.9 cm/sec Med Peak E' Jose Eduardo: 6.2 cm/sec MV A max jose eduardo: 90.2 cm/sec E/E' lat: 8.7 E/E' med: 12.4 MV E/A: 0.85 MV V2 max: 95.3 cm/sec MV P1/2t max jose eduardo: 88.6 cm/sec Ao V2 max: 128.3 cm/sec MV max P.6 mmHg MV P1/2t: 97.7 msec Ao max P.6 mmHg MV V2 mean: 48.6 cm/sec MV dec slope: 265.7 cm/sec2 Ao V2 mean: 88.9 cm/sec MV mean P.2 mmHg Ao mean P.6 mmHg MV V2 VTI: 33.2 cm MVA(P1/2t): 2.3 cm2 Ao V2 VTI: 31.2 cm AI max jose eduardo: 347.5 cm/sec LV V1 max: 91.1 cm/sec PA V2 max: 76.1 cm/sec AI max P.5 mmHg LV V1 max P.3 mmHg AI dec slope: 199.6 cm/sec2 LV V1 mean P.4 mmHg AI P1/2t: 509.9 msec LV V1 mean: 52.6 cm/sec LV V1 VTI: 22.3 cm TR max jose eduardo: 244.1 cm/sec TR max P.8 mmHg Interpretation Summary The estimated ejection fraction is 65 %. Stage 1 diastolic dysfunction. Mildly dilated right ventricle. The left atrium is mildly enlarged. Trivial mitral valve insufficiency. Trivial tricuspid valve insufficiency. Right ventricular systolic pressure estimated to be 29 mmHg. Bubble contrast study negative for right to left interatrial shunt. Trivial aortic valve insufficiency. There is no comparison study available. Ordering Physician: Baldomero Yen Referring Physician: Baldomero Yen Performed By: Lew Harrington RCS
--- OUTSIDE RECORDS SUMMARY | 2018-06-04 12:58 | XMS RPT_ITS ---
:1940 Author Organization OHIP Support Name Relationship Address Phone R Unavailable Unavailable Unavailable KENROY, SAMIRA Unavailable [address] + [place] [address] R Unavailable Unavailable Unavailable KENROY, SAMIRA Unavailable [address] + [place] [address] R Unavailable Unavailable Unavailable KENROY, SAMIRA Unavailable [address] + [place] [address] R Unavailable Unavailable Unavailable KENROY, SAMIRA Unavailable [address] + [place] [address] R Unavailable Unavailable Unavailable KENROY, SAMIRA Unavailable [address] + [place] [address] R Unavailable Unavailable Unavailable KENROY, SAMIRA Unavailable [address] + [place] [address] R Unavailable Unavailable Unavailable KENROY, SAMIRA Unavailable [address] + [place] [address] R Unavailable Unavailable Unavailable KENROY, SAMIRA Unavailable [address] + [place] [address] R Unavailable Unavailable Unavailable KENROY, SAMIRA Unavailable [address] + [place] [address] R Unavailable Unavailable Unavailable KENROY, SAMIRA Unavailable [address] + [place] [address] R Unavailable Unavailable Unavailable KENROY, SAMIRA Unavailable [address] + [place] [address] Care Team Providers Name Role Phone Baldomero Yen Attending Unavailable Baldomero Yen Referring Unavailable Baldomero Yen Primary Care Unavailable Baldomero Yen Attending Unavailable Baldomero Yen Referring Unavailable Baldomero Yen Primary Care Unavailable Joseph Alfaro Attending Unavailable Ranney, Christopher Referring Unavailable Moodispaw, Richar Attending Unavailable Ranney, Christopher Referring Unavailable Booth, Roxy Attending Unavailable Moodispaw, Richar Attending Unavailable Ranney, Christopher Referring Unavailable Moodispaw, Richar Attending Unavailable Ranney, Christopher Referring Unavailable Ranney, Christopher Primary Care Unavailable Moodispaw, Richar Attending Unavailable Moodispaw, Richar Referring Unavailable Ranney, Christopher Primary Care Unavailable Booth, Roxy Attending Unavailable Moodispaw, Richar Attending Unavailable Ranney, Christopher Referring Unavailable Ranney, Christopher Primary Care Unavailable Ranney, Christopher Attending Unavailable Ranney, Christopher Primary Care Unavailable PROBLEMS PROBLEMS DATE TYPE CONDITION / CODE ATTENDING STATUS SOURCE 10/19/2017 Unknown I25.10 - Richar Treadwell Active [place] 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[facility] coronary artery Repository without angina pectoris / I25.10(ICD-10) 10/19/2017 Unknown E78.5 - Richar Treadwell Active [place] Hyperlipidemia, Community unspecified / Hospital E78.5(ICD-10) Repository PROCEDURES PROCEDURES No Procedure Records FoundRESULTS RESULTS ECHOCARDIOGRAM COMPLETE Observed: 03/03/2018 Status: F Source: [place] 12:29 PM [facility] REPOSITORY [facility] Cardiovascular Services [address] [place] [address] Echo Complete 03/03/18 1000 MR#: [id number] Acct: [id number] Name: BUBBA JASMINE Rep #: [id number] : 1940 77 From: Joseph Alfaro MD Attending Dr: Baldomero Yen MD Status: REG CLI Ordering Dr: Michael Yen MD Date: 03/03/18 Location: [facility] Sex: M C Admitted: Reason For [...] jose eduardo: 77.1 cm/sec Lat Peak E' Jose Eduardo: 8.9 cm/sec Med Peak E' Jose [...] Dictated: 03/03/18 1000 Date Transcribed: 03/03/18 1228 Machine Clothing Replacer: Signed CAROTID DUPLEX Observed: 02/28/2018 Status: F Source: [place] ULTRASOUND 10:11 AM [facility] REPOSITORY [facility] Cardiovascular Services [address] [place] [address] Carotid Duplex Ultrasound 02/26/18 1311 MR#: [id number] Acct: [id number] Name: BUBBA JASMINE Rep #: [id number] : 1940 77 From: Chico Mosher MD [...] Dictated: 02/26/18 1311 Date Transcribed: 02/28/18 1011 Machine Clothing Replacer: Signed BRAIN/HEAD WITHOUT Observed: 02/26/2018 Status: F Source: [place] CONTRAST 1:35 PM [facility] REPOSITORY [facility] Imaging Services [address] [place] [address] Brain/Head without Contrast MR#: [id number] Acct: [id number] Name: BUBBA JASMINE Rep #: [id number] : 1940 M 77 From: Yi De Leon PCP: Baldomero Yen MD Status: REG CLI Study: Brain/Head without Contrast Date of Exam: 02/26/18 Exam# [id number] Ordering Dr: Michael Yen MD STUDY: CT [...] Service support , CC: Baldomero Yen MD Machine Clothing Replacer: Signed CBC W/DIFF, AUTOMATED Collected: 02/08/2018 Status: F Source: [place] 12:12 PM [facility] REPOSITORY TYPE CODE TESTS RESULT OUT OF [...] 1.25 Performed By: #### L100.0100, L101.9900 #### [facility] [address] [place], [address] ERYTHROCYTE SED RATE Collected: 02/08/2018 Status: F Source: [place] 12:12 PM [facility] REPOSITORY TYPE CODE TESTS RESULT OUT OF RANGE REFERENCE UNITS LAB L102.0000 0-20 mm/hr Normal SED RATE 14 Performed By: #### L100.0100, L101.9900 #### [facility] [address] [place], [address] VITAMIN B12 Collected: 02/08/2018 Status: F Source: [place] 12:12 PM [facility] REPOSITORY TYPE CODE TESTS RESULT OUT OF RANGE REFERENCE UNITS LAB L503.0105 211-911 pg/mL Normal Vitamin B12 390 Performed By: #### L503.0105, L506.1000 #### [facility] [address] [place], [address] VITAMIN D,25 HYDROXY Collected: 02/08/2018 Status: F Source: [place] 12:12 PM [facility] REPOSITORY TYPE CODE TESTS RESULT OUT OF RANGE REFERENCE UNITS LAB L506.1000 29.95-100.01 ng/mL Normal Vitamin D 31.4 25-OH Result Comment: Vitamin D 25(OH) Status Range Deficiency <20 ng/mL (50nmol/L) Insuffciency 20 - 30 ng/mL (50 - 75 nmol/L) Sufficiency 30 - 100 ng/mL (75 - 250 nmol/L) Toxicity >100 ng/mL (>250 nmol/L) Performed By: #### L503.0105, L506.1000 #### [facility] [address] [place], [address] COMPREHENSIVE METABOLIC Collected: 02/08/2018 Status: F Source: [facility] 12:12 PM [facility] REPOSITORY Order Comment: PLEASE ADD ON T3F [...] 11 Performed By: #### L500.4050, L501.9520, L503.6150, L501.29619, L506.0400 #### [facility] [address] [place] [address] [place], [address] THYROID STIM HORMONE Collected: 02/08/2018 Status: F Source: [place] ([facility]) 12:12 PM [facility] REPOSITORY Order Comment: PLEASE ADD ON T3F T4F TO BLOOD DRAWN 02/08/18 PER TYPE CODE TESTS RESULT OUT OF RANGE REFERENCE UNITS LAB L501.9520 0.358-3.74 uIU/mL High TSH 4.25 Performed By: #### L500.4050, L501.9520, L503.6150, L501.47349, L506.0400 #### [facility] [address] [place], [address] IRON Collected: 02/08/2018 Status: F Source: [place] 12:12 PM [facility] REPOSITORY Order Comment: PLEASE ADD ON T3F T4F TO BLOOD DRAWN 02/08/18 PER TYPE CODE TESTS RESULT OUT OF RANGE REFERENCE UNITS LAB L503.6150 65-175 ug/dL Normal IRON 88 Performed By: #### L500.4050, L501.9520, L503.6150, L501.98912, L506.0400 #### [facility] [address] [place], [address] FREE T3 Collected: 02/08/2018 Status: F Source: [place] 12:12 PM [facility] REPOSITORY Order Comment: PLEASE ADD ON T3F T4F TO BLOOD DRAWN 02/08/18 PER TYPE CODE TESTS RESULT OUT OF RANGE REFERENCE UNITS LAB L501.19781 2.18-3.98 pg/mL Normal FREE T3 2.2 Performed By: #### L500.4050, L501.9520, L503.6150, L501.30541, L506.0400 #### [facility] [address] [place], [address] T4 FREE DIRECT Collected: 02/08/2018 Status: F Source: [place] 12:12 PM [facility] REPOSITORY Order Comment: PLEASE ADD ON T3F T4F TO BLOOD DRAWN 02/08/18 PER TYPE CODE TESTS RESULT OUT OF RANGE REFERENCE UNITS LAB L506.0400 0.76-1.46 ng/dL Normal T4 FREE 0.78 DIRECT Performed By: #### L500.4050, L501.9520, L503.6150, L501.73759, L506.0400 #### [facility] [address] [place], [address] CARDIOLOGY VISIT Observed: 10/30/2017 Status: F Source: [place] REPORT 3:34 PM [facility] REPOSITORY [facility] [address] [place] [address] OFFICE VISIT Date of Service: 10/30/17 MR#: [id number] Acct: [id number] Name: BUBBA JASMINE Rep #: [id number] : 1940 Provider: Richar Treadwell MD Age/Sex: 77/M Location: [facility] Status: Signed HPI HPI Details: BUBBA JASMINE, [...] Intake Visit Reasons: 1 y fu Allergies Hrkzupx-Cuk-Pcn Reductase Inhibitor Adverse Reaction (Severe, Verified 10/30/17 [...] C 150 mg-vit E 30 unit-lutein 5 qd-ibmkytzg-oabzt 3 150 mg capsule 1 cap PO BID cap 08/12/17 [History Confirmed 10/29/17] cholecalciferol (vitamin D3) 1,000 unit capsule 2,000 unit PO BID cap 10/30/17 [History Confirmed 10/30/17] [facility] Medical History Hyperlipidemia (Chronic) Atherosclerotic heart disease of [place] coronary artery without angina pectoris (Chronic) Arthritis [...] did have a transthoracic echocardiogram performed at [facility] on 03/26/2001. Per the report the [...] block. Assessment AND Plan 1. Atherosclerosis of [place] coronary artery of [place] heart without angina pectoris I25.10 Mild Plan [...] Code Off vis,est,level 3 Diagnoses Atherosclerosis of [place] coronary artery of [place] heart without angina pectoris I25.10 [place] vs. transplanted heart: [place] heart Hyperlipidemia, unspecified hyperlipidemia type E78.5 Hyperlipidemia type: unspecified Coding Level of Care Code Off vis,est,level 3 Diagnoses Atherosclerosis of [place] coronary artery of [place] heart without angina pectoris I25.10 [place] vs. transplanted heart: [place] heart Hyperlipidemia, unspecified hyperlipidemia type E78.5 Hyperlipidemia type: unspecified 10/30/17 1534 <Electronically signed by Richar Treadwell MD> Date Richar Treadwell MD Cosigner Signature: Date (if applicable) CC: Baldomero Yen MD LIVER PROFILE Collected: 10/26/2017 Status: F Source: [place] 7:46 AM [facility] REPOSITORY TYPE CODE TESTS RESULT OUT OF [...] 0.16 Performed By: #### L500.3400, L500.4100 #### [facility] [address] [place], [address] LIPID PROFILE Collected: 10/26/2017 Status: F Source: [place] 7:46 AM [facility] REPOSITORY TYPE CODE TESTS RESULT OUT OF [...] 22 Performed By: #### L500.3400, L500.4100 #### [facility] [address] [place], [address] 12 LEAD EKG PERFORMED Observed: 10/19/2017 Status: F Source: [place] BY [facility] 11:37 AM [facility] REPOSITORY [facility] [address] [place] [address] [address] [facility] [facility] 10/19/17 1136 MR#: [id number] Acct: [id number] Name: BUBBA JASMINE Rep #: [id number] : 1940 77 From: Richar Treadwell MD Attending Dr: Richar Treadwell MD Status: REG AMB Ordering Dr: Richar Treadwell MD Date: 10/19/17 [place] [facility] Sex: M C Admitted: [facility]/12 Lead EKG performed by [facility] ECG Report Interpretation Sinus Bradycardia -First degree A-V block - frequent PAC s Left axis deviationLeft anterior fascicular blockPoor R wave progressionABNORMAL Electronically signed on 10/19/2017 at 12:52 by Richar Treadwell Software Version 8610 10/19/17 1253 Date Richar Treadwell MD CC: Baldomero Yen MD Date Dictated: 10/19/17 113 Date Transcribed: 10/19/17 113 Machine Clothing Replacer: PM Signed ALLERGIES ALLERGIES DATE TYPE / CODE NAME / CODE REACTION SEVERITY SOURCE 10/30/2017 Drug Nusdrcj-Mkt-Gtx [place], SV [facility] Allergy/416 Reductase Myalgias [facility] 506111(SNOM Inhibitor/K77157 Repository ED CT) 4312(RXNORM) ENCOUNTERS ENCOUNTERS ADMIT/DISCHARGE ACCOUNT ADMITTING ENCOUNTER LOCATION SOURCE NUMBER CLASS 03/03/2018 [id number] Ambulatory [place] 2 [facility] ing:[facility] Repository 03/03/2018 [id number] Ambulatory BMSBuilding:W [place] 7 [facility] Repository 02/26/2018 [id number] Ambulatory [place] 9 [facility] ing:[facility] Repository 02/08/2018 [id number] Ambulatory [place] 6 [facility] ing:[facility] Repository 10/30/2017/ [id number] Ambulatory BMSBuilding:B [place] [address] [facility] Repository 10/29/2017 [id number] Ambulatory BMSBuilding:B [place] [address] [facility] Repository 10/26/2017 [id number] Ambulatory [place] 1 [facility] ing:LAB Repository 10/19/2017/ [id number] Ambulatory BMSBuilding:B [place] [address] [facility] Repository 10/16/2017 [id number] Ambulatory BMSBuilding:B [place] [address] [facility] Repository 08/17/2017 [id number] Ambulatory BMSBuilding:B [place] 7 [facility] Repository 08/12/2017 [id number] Ambulatory BMSBuilding:B [place] [address] [facility] Repository PAYERS PAYERS ENCOUNTER GUARANTOR PAYER SUBSCRIBER SOURCE 03/03/2018 BUBBA E Primary BUBBA E [place] [id number] Insurance:AETNA WILESDOB: [facility] Number: [id number] TexasBH6GPYEffective Repository [address]Opf: ([phone]) Date:2922-79-99VN [phone] () [place], [place] [address]PX: 03/03/2018 Secondary NOT GIVENUNK [place] Insurance:SELF PAY [facility] Number: Effective Repository Date:2018-02-24 03/03/2018 BUBBA E Primary BUBBA E [place] [id number] Insurance:AETNA WILESDOB: [facility] Number: [id number]6GPYEffective Repository [address]Nsn: (330) Date:8708-01-62XZ [phone] () [id number], [place] [address]HR: 03/03/2018 Secondary NOT GIVENUNK [place] Insurance:SELF PAY [facility] Number: Effective Repository Date:2018-03-03 02/26/2018 BUBBA E Primary BUBBA E [place] [id number] Insurance:AETNA WILESDOB: [facility] Number: [id number] Central TexasBH6GPYEffective Repository [address]16[address]Vde: ([phone]) Date:1652-01-68QL [phone] () 8939[place]FM[place], [place] [address]MF: 02/26/2018 Secondary NOT GIVENUNK [place] Insurance:SELF PAY [facility] Number: Effective Repository Date:2018-02-24 02/08/2018 BUBBA E Primary BUBBA E [place] [id number] Insurance:AETNA [facility] Number: [id number] [id number] Repository [address]Mqi: (330) Date:8580-10-07DF [phone] (HP) [id number] [place] [address]WC: 02/08/2018 Secondary NOT GIVENUNK [place] Insurance:SELF PAY [facility] Number: Effective Repository Date:2018-02-08 10/30/2017 BUBBA E Primary BUBBA E [place] [id number] Insurance:AETNA WILESDOB: [facility] Number: [id number], [place] [id number] Repository [address]Tty: (330) Date:2913-25-54LM [phone] (HP) [id number] [place] [address]UX: 10/30/2017 Secondary NOT GIVENUNK [place] Insurance:SELF PAY [facility] Number: Effective Repository Date:2017-10-30 10/29/2017 BUBBA E Primary BUBBA E [place] [id number] Insurance:AETNA WILESDOB: [facility] Number: [id number] Central TexasBH6GPYEffective Repository [address]Ktm: ([phone]) Date:9238-47-62ET [phone] (HP) [id number] [place] [address]QG: 10/29/2017 Secondary NOT GIVENUNK [place] Insurance:SELF PAY [facility] Number: Effective Repository Date:2017-10-29 10/26/2017 BUBBA E Primary BUBBA E [place] [id number] Insurance:AETNA WILESDOB: [facility] Number: [id number] Central TexasBH6GPYEffective Repository [address]Adh: (330) Date:4237-07-01BI [phone] (HP) [id number] [place] [address]QH: 10/26/2017 Secondary NOT GIVENUNK [place] Insurance:SELF PAY [facility] Number: Effective Repository Date:2017-10-26 10/19/2017 BUBBA E Primary BUBBA E [place] [id number] Insurance:AETNA WILESDOB: [facility] Number: [id number], [place] [id number] Repository [address]Zrd: (330) Date:8461-69-28OV [phone] () 954236[place]OM[place], [place] [address]KJ: 10/19/2017 Secondary NOT GIVENUNK [place] Insurance:SELF PAY [facility] Number: Effective Repository Date:2017-10-19 10/16/2017 Bubba E Primary BUBBA E [place] [id number] Insurance:AETNA WILESDOB: [facility] Number: [id number]tive Repository [address]Srx: (330) Date:9844-29-11LS [phone] () 339697[place]ZM[place], [place] [address]KT: 10/16/2017 Secondary NOT GIVENUNK [place] Insurance:SELF PAY [facility] Number: Effective Repository Date:2017-08-27 08/17/2017 Bubba E Primary BUBBA E [place] [id number] Insurance:AETNA WILESDOB: [facility] Number: [id number], [place] [id number] Repository [address]Jlh: Date:8782-77-16VL [phone]~[facility] [address]TA MIGUEL ÁNGEL [place] -3 () [address]CO: 08/17/2017 Secondary NOT GIVENUNK [place] Insurance:SELF PAY [facility] Number: Effective Repository Date:2017-03-05 08/12/2017 Bubba E Primary BUBBA E [place] [id number] Insurance:AETNA WILESDOB: [facility] Number: [id number]ective Repository [address]28[address]Qxf: Date:7891-25-07MX [phone]~[address] [id number] GAEL RAMIREZ -3 (EY) [address]WP: 08/12/2017 Secondary NOT GIVENUNK [place] Insurance:SELF PAY [facility]: Effective Repository Date:2017-08-12
== END ==
PROVIDERS: Family Provider Family Medicine; PCP Family Medicine; Referring Provider Family Medicine; Visit Provider Family Medicine
DX: Z86.73 Personal history of transient ischemic attack (TIA), and cerebral infarction without residual deficits (principal)
CPT/HCPCS: 93306; A4216

== ENCOUNTER → 2018-04-14 09:31 | Outpatient (CLI) | payer MEDICARE, SELFPAY ==
[2018-04-14 12:29] LABS: Vitamin B12 617 pg/mL (211-911)
[2018-04-14 12:32] LABS: Free T3 2.3 pg/mL (2.18-3.98); T4 Free Direct 1.07 ng/dL (0.76-1.46); Thyroid Stim Hormone (TSH) 1.96 uIU/mL (0.358-3.74)
== END ==
PROVIDERS: Family Provider Family Medicine; PCP Family Medicine; Visit Provider Family Medicine
DX: E03.9 Hypothyroidism, unspecified (principal); R79.89 Other specified abnormal findings of blood chemistry
CPT/HCPCS: 36415; 82607; 84439; 84443; 84481

== ENCOUNTER → 2018-06-14 08:01 | Outpatient (CLI) | payer MEDICARE, SELFPAY ==
[2018-06-14 10:43] LABS: Vitamin B12 757 pg/mL (211-911)
[2018-06-14 11:05] LABS: Anion Gap 9 (5-15); BUN 17 mg/dL (7-18); BUN/Creat Ratio 19.9 RATIO (10-20); Calcium,Total 8.7 mg/dL (8.5-10.1); Chloride 107 mmol/L (98-107); Cholesterol 156 mg/dL (200); Creatinine, Serum 0.86 mg/dL (0.70-1.30); EST Glomerular Filtration Rate 92 mL/min (>60); Est Glom Filt Rate - Afr Amer 111 mL/min (>60); Glucose 92 mg/dL (74-106); High Density Lipoprotein 45 mg/dL; Potassium 3.8 mmol/L (3.5-5.1); Sodium Level 142 mmol/L (136-145); T4 Free Direct 0.99 ng/dL (0.76-1.46); Thyroid Stim Hormone (TSH) 3.05 uIU/mL (0.358-3.74); Triglycerides 141 mg/dL; Very Low Density Lipoprotein 28 mg/dL (5-40)
== END ==
PROVIDERS: Family Provider Family Medicine; PCP Family Medicine; Visit Provider Family Medicine
DX: E55.9 Vitamin D deficiency, unspecified (principal); E53.8 Deficiency of other specified B group vitamins; I25.10 Atherosclerotic heart disease of native coronary artery without angina pectoris; E78.5 Hyperlipidemia, unspecified; R94.6 Abnormal results of thyroid function studies
CPT/HCPCS: 36415; 80048; 80061; 82306; 82607; 84439; 84443

== ENCOUNTER → 2018-10-07 | Outpatient (CLI) | payer MEDICARE, SELFPAY ==
[2018-10-07 10:51] LABS: Anion Gap 9 (5-15); BUN 19 mg/dL (7-18); BUN/Creat Ratio 23.9 RATIO (10-20); Calcium,Total 8.7 mg/dL (8.5-10.1); Chloride 105 mmol/L (98-107); Cholesterol 196 mg/dL (200); EST Glomerular Filtration Rate 100 mL/min (>60); Est Glom Filt Rate - Afr Amer 121 mL/min (>60); Glucose 87 mg/dL (74-106); High Density Lipoprotein 50 mg/dL; Potassium 4.1 mmol/L (3.5-5.1); Sodium Level 143 mmol/L (136-145); Thyroid Stim Hormone (TSH) 2.19 uIU/mL (0.358-3.74); Triglycerides 150 mg/dL; Very Low Density Lipoprotein 30 mg/dL (5-40)
[2018-10-07 10:54] LABS: Vitamin D,25 Hydroxy 32.3 ng/mL (29.95-100.01)
== END | disposition home or self-care (01) ==
LOC: MFPLAB 08:01
PROVIDERS: Family Provider Family Medicine; PCP Family Medicine; Referring Provider Family Medicine; Visit Provider Family Medicine
DX: E78.5 Hyperlipidemia, unspecified (principal); E55.9 Vitamin D deficiency, unspecified
CPT/HCPCS: 36415; 80048; 80061; 82306; 84443

== ENCOUNTER → 2019-02-28 11:35 | Outpatient (CLI) | payer MEDICARE, SELFPAY ==
[2018-12-27 09:16] VITALS: BMI 32.0
[2019-02-28 14:14] LABS: Vitamin B12 1665 pg/mL (211-911)
[2019-02-28 14:17] LABS: ALB/GLOB Ratio 1.2 RATIO (0.9-2.4); AST(SGOT) 14 U/L (15-37); Alanine Aminotransfer ALT/SGPT 24 U/L (16-61); Albumin, Serum 3.7 g/dL (3.2-5.0); Alkaline Phosphatase 69 U/L (45-117); Anion Gap 3 (5-15); BUN 14 mg/dL (7-18); BUN/Creat Ratio 16.6 RATIO (10-20); Calcium,Total 8.7 mg/dL (8.5-10.1); Chloride 106 mmol/L (98-107); Creatinine, Serum 0.84 mg/dL (0.70-1.30); EST Glomerular Filtration Rate 93 mL/min (>60); Est Glom Filt Rate - Afr Amer 113 mL/min (>60); Globulin 3.2 g/dL (2.2-4.2); Glucose 86 mg/dL (74-106); Protein, Total 6.9 g/dL (6.4-8.2); Sodium Level 140 mmol/L (136-145); Thyroid Stim Hormone (TSH) 1.99 uIU/mL (0.358-3.74)
== END ==
PROVIDERS: Family Provider Family Medicine; PCP Family Medicine; Visit Provider Family Medicine
DX: R41.3 Other amnesia (principal); E55.9 Vitamin D deficiency, unspecified; E53.8 Deficiency of other specified B group vitamins; E03.9 Hypothyroidism, unspecified
CPT/HCPCS: 36415; 80053; 82306; 82607; 84443

== ENCOUNTER → 2019-03-10 07:07 | Outpatient (CLI) | payer MEDICARE, SELFPAY ==
[2018-12-27 09:16] VITALS: BMI 32.0
--- NOTE | 2019-03-10 07:20 | MRI_ITS ---
STUDY: MRI BRAIN WITH AND WITHOUT CONTRAST REASON FOR EXAM: Male, 78 years old. tia, MEMORY LAPSES X 1 YEAR TECHNIQUE: Standardized multiplanar fat and water weighted pulse sequences were obtained. DOTAREM IV 20ML was administered for the contrast portion of the examination. COMPARISON: CT of the head dated February 26, 2019 FINDINGS: Normal size of the ventricles and extra-axial spaces for the patient''s age. Normal white matter tracts of the supratentorial brain. Normal bilateral basal ganglia. Normal thalami. There is no extra-axial fluid accumulation. Normal flow voids within the major intracranial circulation suggesting patency by spin echo criteria. Normal venous enhancement. There is no enhancing intra-axial or extra-axial abnormality. Normal sella turcica, pituitary gland, infundibular stalk, optic chiasm and hypothalamus. Normal tectal plate and pineal gland. Normal midbrain, cliff and medulla. Normal cerebellum. Normal basal cisterns. Again noted is the right mastoid disease. MRI/Brain W/WO Contrast IMPRESSION: No acute intracranial abnormality or masses. Chronic right mastoid disease. Electronically Signed: Yi [place] MD at 9:46 EST Tel , Service support ,
== END ==
PROVIDERS: Family Provider Family Medicine; PCP Family Medicine; Referring Provider Family Medicine; Visit Provider Family Medicine
DX: Z86.73 Personal history of transient ischemic attack (TIA), and cerebral infarction without residual deficits (principal)
CPT/HCPCS: 70553; A9575

== ENCOUNTER 2019-09-27 19:05 | Emergency (ER) | payer MEDICARE, SELFPAY ==
[2018-12-27 09:16] VITALS: BMI 32.0
[2019-09-27 19:07] VITALS: BP 149/85; PULSE 69; RESP 14; TEMP 36.8; O2SAT 96; BMI 31.3
--- NOTE | 2019-09-27 19:34 | ED.RN ---
pt cannot keep eyes open long enough to complete the visual acuity.
[2019-09-27] MEDS: Tetracaine 0.5% Ophthalmic Bottle 1 DRP EACH EYE (19:37)
--- NOTE | 2019-09-27 19:38 | ED.VISSUMM ---
- ER Visit Summary Date of Service: 09/27/19 Chief Complaint: [Bilateral eye irritation] History of Present Illness: The patient is a 79 M [presents the emergency department with discomfort to both eyes that started rather suddenly while eating dinner. Patient states that he was pulling weeds earlier in the day. He denies any foreign body sensation. Initially started with itching to the eyes it then became a burning sensation. Patient then felt like his nose was getting congested. He denies any visual changes. Denies photophobia.] Physical Examination: [HEENT-PERRLA, EOMI. Cranial nerves II through XII grossly intact. TMs clear. Mucous membranes moist. No adenopathy. Patient has mild bilateral conjunctival erythema. Eyes were stained with fluorescein there is no corneal abrasions noted. No foreign bodies were noted when eyelids were everted. Cardiovascular-regular rate and rhythm without murmur or ectopy Lungs-clear to auscultation, chest wall stable without crepitus or subcu emphysema Abdomen-normoactive bowel sounds, soft, nontender, no rebound or rigidity, no peritoneal signs. Extremities-intact ?4, normal range of motion, normal pulses, atraumatic] Test Results: [None indicated] Emergency Department Course and Treatment: [Patient case discussed with ophthalmology on-call Dr. Dunlap who recommended Benadryl and erythromycin ointment as well as artificial tears.] Treatment Plan: [Follow up with ophthalmology in 24 hours if no improvement.] Disposition: [Discharged home in stable condition] Impression: [Allergic conjunctivitis] This note was generated with [employer] dictation software. It may contain incorrect words, spelling, and punctuation that were not noted in review of the chart prior to signing ED Disposition - Plan for ED Patient: Referrals: Michael Yen MD [Primary Care Provider] -
--- NOTE | 2019-09-27 19:39 | ED.DEP ---
ED Disposition - Plan for ED Patient: Instructions: ED Allergic Conjunctivitis Referrals: Michael Yen MD [Primary Care Provider] - Alysia Dunlap MD [STAFF PHYSICIAN] - 1-2 Days if not improving
[2019-09-27] MEDS: DiphenhydrAMINE 25 MG Capsule PO (19:41)
[2019-09-27] MEDS: Erythromycin Base 1 OPTH.TUBE 1 APPLIC EACH EYE (19:41)
[2019-09-27 20:32] VITALS: BP 138/83; PULSE 72; RESP 16; O2SAT 97
== END 2019-09-27 20:34 | disposition home or self-care (01) ==
LOC: ED 19:47
PROVIDERS: Emergency Provider Emergency Medicine; PCP Family Medicine
DX: H10.13 Acute atopic conjunctivitis, bilateral (principal)
CPT/HCPCS: 99282

== ENCOUNTER → 2019-09-28 11:20 | Outpatient (CLI) | payer MEDICARE, SELFPAY ==
[2019-09-27 19:07] VITALS: BMI 31.3
[2019-09-28 13:35] LABS: Vitamin B12 525 pg/mL (211-911); Vitamin D,25 Hydroxy 56.1 ng/mL
[2019-09-28 14:12] LABS: Anion Gap 8 (5-15); BUN 16 mg/dL (7-18); BUN/Creat Ratio 19.3 RATIO (10-20); Calcium,Total 8.8 mg/dL (8.5-10.1); Chloride 104 mmol/L (98-107); Cholesterol 177 mg/dL (200); Creatinine, Serum 0.83 mg/dL (0.70-1.30); EST Glomerular Filtration Rate 95 mL/min (>60); Est Glom Filt Rate - Afr Amer 114 mL/min (>60); Glucose 86 mg/dL (74-106); High Density Lipoprotein 44 mg/dL; Potassium 3.7 mmol/L (3.5-5.1); Sodium Level 140 mmol/L (136-145); Thyroid Stim Hormone (TSH) 2.68 uIU/mL (0.358-3.74); Triglycerides 157 mg/dL; Very Low Density Lipoprotein 31 mg/dL (5-40)
== END ==
PROVIDERS: PCP Family Medicine; Visit Provider Family Medicine
DX: E03.9 Hypothyroidism, unspecified (principal); R41.3 Other amnesia; E78.5 Hyperlipidemia, unspecified; E53.8 Deficiency of other specified B group vitamins; E55.9 Vitamin D deficiency, unspecified
CPT/HCPCS: 36415; 80048; 80061; 82306; 82607; 84439; 84443

== ENCOUNTER → 2020-03-01 11:37 | Outpatient (CLI) | payer MEDICARE, SELFPAY ==
[2019-12-26 10:40] VITALS: BMI 31.7
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
[2020-03-01 16:04] LABS: ALB/GLOB Ratio 1.1 RATIO (0.9-2.4); AST(SGOT) 20 U/L (15-37); Alanine Aminotransfer ALT/SGPT 30 U/L (16-61); Albumin, Serum 3.9 g/dL (3.2-5.0); Alkaline Phosphatase 79 U/L (45-117); Anion Gap 8 (5-15); BUN 16 mg/dL (7-18); BUN/Creat Ratio 17.7 RATIO (10-20); Chloride 103 mmol/L (98-107); EST Glomerular Filtration Rate 86 mL/min (>60); Est Glom Filt Rate - Afr Amer 104 mL/min (>60); Globulin 3.4 g/dL (2.2-4.2); Glucose 86 mg/dL (74-106); Potassium 4.1 mmol/L (3.5-5.1); Protein, Total 7.3 g/dL (6.4-8.2); Sodium Level 140 mmol/L (136-145); Thyroid Stim Hormone (TSH) 3.02 uIU/mL (0.358-3.74)
[2020-03-01 16:33] LABS: Vitamin B12 560 pg/mL (211-911); Vitamin D,25 Hydroxy 38.9 ng/mL
== END ==
PROVIDERS: PCP Family Medicine; Referring Provider Family Medicine; Visit Provider Family Medicine
DX: M54.2 Cervicalgia (principal); E53.8 Deficiency of other specified B group vitamins; E03.9 Hypothyroidism, unspecified; E55.9 Vitamin D deficiency, unspecified; Z86.73 Personal history of transient ischemic attack (TIA), and cerebral infarction without residual deficits
CPT/HCPCS: 36415; 72050; 80053; 82306; 82607; 84443

== ENCOUNTER → 2020-12-18 08:29 | Outpatient (CLI) | payer MEDICARE, SELFPAY ==
[2020-12-18 10:41] LABS: AST(SGOT) 14 U/L (15-37); Alanine Aminotransfer ALT/SGPT 23 U/L (16-61); Albumin, Serum 3.6 g/dL (3.2-5.0); Alkaline Phosphatase 67 U/L (45-117); Bilirubin, Direct 0.19 mg/dL (0.00-0.30); Cholesterol 185 mg/dL (200); Globulin 3.4 g/dL (2.2-4.2); High Density Lipoprotein 43 mg/dL; Triglycerides 134 mg/dL; Very Low Density Lipoprotein 27 mg/dL (5-40)
== END ==
PROVIDERS: PCP Family Medicine; Referring Provider Internal Medicine Cardiovascular Disease; Visit Provider Internal Medicine Cardiovascular Disease
DX: E78.00 Pure hypercholesterolemia, unspecified (principal)
CPT/HCPCS: 36415; 80061; 80076

== ENCOUNTER → 2021-03-14 12:49 | Outpatient (CLI) | payer MEDICARE, SELFPAY ==
[2021-03-14 15:36] LABS: Vitamin B12 367 pg/mL (211-911); Vitamin D,25 Hydroxy 42.4 ng/mL
[2021-03-14 15:46] LABS: Anion Gap 6 (5-15); BUN 10 mg/dL (7-18); BUN/Creat Ratio 12.5 RATIO (10-20); Calcium,Total 9.3 mg/dL (8.5-10.1); Chloride 102 mmol/L (98-107); EST Glomerular Filtration Rate 98 mL/min (>60); Est Glom Filt Rate - Afr Amer 119 mL/min (>60); Glucose 96 mg/dL (74-106); Potassium 4.2 mmol/L (3.5-5.1); Sodium Level 138 mmol/L (136-145); Thyroid Stim Hormone (TSH) 2.05 uIU/mL (0.358-3.74)
== END ==
PROVIDERS: PCP Family Medicine; Referring Provider Family Medicine; Visit Provider Family Medicine
DX: E53.8 Deficiency of other specified B group vitamins (principal); K21.9 Gastro-esophageal reflux disease without esophagitis; E03.9 Hypothyroidism, unspecified; E55.9 Vitamin D deficiency, unspecified
CPT/HCPCS: 36415; 80048; 82306; 82607; 84443

== ENCOUNTER → 2021-12-19 | Outpatient (CLI) | payer MEDICARE, SELFPAY ==
[2021-12-19 10:19] LABS: AST(SGOT) 24 U/L (15-37); Alanine Aminotransfer ALT/SGPT 37 U/L (16-61); Albumin, Serum 3.7 g/dL (3.2-5.0); Alkaline Phosphatase 68 U/L (45-117); Bilirubin, Direct 0.14 mg/dL (0.00-0.30); Cholesterol 182 mg/dL (200); Globulin 3.5 g/dL (2.2-4.2); High Density Lipoprotein 45 mg/dL; Protein, Total 7.2 g/dL (6.4-8.2); Triglycerides 129 mg/dL; Very Low Density Lipoprotein 26 mg/dL (5-40)
== END | disposition home or self-care (01) ==
PROVIDERS: PCP Family Medicine; Referring Provider Internal Medicine Cardiovascular Disease; Visit Provider Internal Medicine Cardiovascular Disease
DX: E78.00 Pure hypercholesterolemia, unspecified (principal)
CPT/HCPCS: 36415; 80061; 80076

== ENCOUNTER → 2022-01-08 | Outpatient (CLI) | payer MEDICARE, SELFPAY ==
--- NOTE | 2022-01-08 06:42 | ECHOD_ITS ---
Reason For Study: CHEST PAIN Procedure This was a 2D Doppler, Color Flow transthoracic echocardiogram. Exam performed in department. Left Ventricle Normal LV size. Left ventricular systolic function is normal. The estimated ejection fraction is 65 %. No evidence for diastolic dysfunction. No regional wall motion abnormalities noted. Right Ventricle Normal RV size. Normal systolic function. Atria The left atrium is mildly enlarged. Normal right atrium. No doppler evidence for ASD. Mitral Valve There is no mitral annular calcification. Mild focal mitral valve calcification, bileaflet. Trivial mitral valve insufficiency. Tricuspid Valve Normal tricuspid valve. Trivial tricuspid valve insufficiency. Right ventricular systolic pressure estimated to be 26 mmHg. Aortic Valve Trisinus/trileaflet aortic valve. Mild diffuse aortic valve thickening. Mild focal aortic valve calcification. Aortic sclerosis, no stenosis. Mild (1+) eccentric aortic valve insufficiency. Pulmonic Valve The pulmonic valve is not well visualized. Trivial pulmonic valve insufficiency. Great Vessels Mildly dilated aortic root. Pericardium/Pleural No pericardial effusion. MMode/2D Measurements & Calculations LVIDd: 4.7 cm IVSd: 1.2 cm LVOT diam: 2.1 cm LVIDs: 3.1 cm LVPWd: 1.2 cm LVOT area: 3.4 cm2 RVDd: 3.4 cm FS: 33.8 % Ao root diam: 4.0 cm LAV(MOD-bp): 61.9 ml LA A4 area: 20.1 cm2 LA dimension: 4.5 cm LAV(MOD-bp) Indexed: 28.2 ml/m2 LAV(MOD-sp2): 59.9 ml LAV(MOD-sp4): 57.3 ml RA A4 area: 19.7 cm2 Time Measurements MV dec time: 0.31 sec Doppler Measurements & Calculations MV E max jose eduardo: 59.5 cm/sec Lat Peak E' Jose Eduardo: 8.3 cm/sec Med Peak E' Jose Eduardo: 6.9 cm/sec MV A max jose eduardo: 92.2 cm/sec E/E' lat: 7.2 E/E' med: 8.7 MV E/A: 0.65 MV dec slope: 189.9 cm/sec2 Ao V2 max: 122.5 cm/sec AI max jose eduardo: 304.4 cm/sec Ao max P.0 mmHg AI max P.2 mmHg Ao V2 mean: 84.4 cm/sec AI dec slope: 144.8 cm/sec2 Ao mean P.3 mmHg AI P1/2t: 616.0 msec Ao V2 VTI: 33.1 cm SHAILESH(I,D): 2.6 cm2 SHAILESH(V,D): 2.8 cm2 LV V1 max: 100.9 cm/sec SV(LVOT): 85.0 ml PA V2 max: 63.9 cm/sec LV V1 max P.1 mmHg LV V1 mean P.4 mmHg LV V1 mean: 73.9 cm/sec LV V1 VTI: 25.2 cm TR max jose eduardo: 238.1 cm/sec TR max P.7 mmHg ECHO/Echo Complete Interpretation Summary Left ventricular systolic function is normal. The estimated ejection fraction is 65 %. The left atrium is mildly enlarged. Mild focal mitral valve calcification, bileaflet. Trivial mitral valve insufficiency. Trivial tricuspid valve insufficiency. Aortic sclerosis, no stenosis. Mild (1+) eccentric aortic valve insufficiency. Trivial pulmonic valve insufficiency. Mildly dilated aortic root. Right ventricular systolic pressure estimated to be 26 mmHg. No evidence for diastolic dysfunction. Ordering Physician: Richar Treadwell Referring Physician: Baldomero Yen Performed By: Poppy Burch, RDCS, RVT
--- NOTE | 2022-01-08 09:56 | STRESSREP_ITS ---
Stress Test Report Date: 01-08-2022 Procedure: Pharmacologic stress nuclear imaging study Indications: Chest pain; CAD; hyperlipidemia Consent: Per the patient Procedure: The patient underwent pharmacologic (Regadenoson 0.4mg ) evaluation with a peak heart rate of 71 beats per minute (51%predicted maximal heart rate) and a resting blood pressure of 142/62 mmHg and a peak blood pressure of 142/62 mmHg. The baseline ECG demonstrated sinus bradycardia; poor R wave progression. The peak pharmacologic ECG demonstrated no obvious ECG changes. There were no cardiac dysrhythmias pretest, during pharmacologic infusion, or recovery. There was no complaint of chest discomfort during pharmacologic infusion or recovery. The examination was discontinued secondary to completion of protocol. Impression: 1. Pharmacologic (Regadenoson) evaluation 2. Peak pharmacologic ECG with no obvious ECG changes. 3. There were no cardiac dysrhythmias pretest, during pharmacologic infusion, or recovery. 4. Nuclear images pending Myocardial perfusion imaging study: Technique: The patient was injected with 14.6 millicuries of technetium 99m Cardiolite and subsequently rest SPECT Cardiolite nuclear imaging was obtained in the horizontal long, vertical long, and short axis views. The patient underwent pharmacologic (Regadenoson) evaluation with a peak heart rate of 71 beats per minute (51% percent predicted maximal heart rate) and a resting blood pressure of 142/62 mmHg and a peak blood pressure of 142/62 mmHg. The patient was injected with 44.3 millicuries of technetium 99m Cardiolite and subsequently stress SPECT Cardiolite nuclear imaging was obtained in the horizontal long, vertical long, and short axis views. A gated Cardiolite study at peak stress was obtained. Interpretation: Rest and stress SPECT Cardiolite nuclear imaging status post realignment, normalization, and attenuation correction demonstrate relative uniform tracer uptake and myocardial perfusion appearing within normal limits. There is end systolic thickening and brightening. The gated Cardiolite study demonstrates myocardial thickening and inward wall motion. The reported LVEF is 66%. Impression: 1. Rest and stress SPECT Cardiolite nuclear imaging demonstrate relative uniform tracer uptake and myocardial perfusion appearing within normal limits. 2. The gated Cardiolite study reports an LVEF of 66%. This note was generated with [employer] software. It may contain incorrect words, spelling, and punctuation that were not noted in checking the note before signing.
== END | disposition home or self-care (01) ==
PROVIDERS: PCP Family Medicine; Referring Provider Internal Medicine Cardiovascular Disease; Visit Provider Internal Medicine Cardiovascular Disease
DX: R07.9 Chest pain, unspecified (principal); I20.9 Angina pectoris, unspecified; E78.5 Hyperlipidemia, unspecified; I25.10 Atherosclerotic heart disease of native coronary artery without angina pectoris
CPT/HCPCS: 78452; 93017; 93306; A9500; A4216; J2785

== ENCOUNTER → 2022-04-23 | Outpatient (CLI) | payer MEDICARE, SELFPAY ==
[2022-04-23 15:17] LABS: Hemoglobin A1c 5.7 % (3.8-5.6)
[2022-04-23 15:22] LABS: Vitamin B12 493 pg/mL (211-911); Vitamin D,25 Hydroxy 59.4 ng/mL
[2022-04-23 15:35] LABS: ALB/GLOB Ratio 1.2 RATIO (0.9-2.4); AST(SGOT) 26 U/L (15-37); Alanine Aminotransfer ALT/SGPT 34 U/L (16-61); Albumin, Serum 3.8 g/dL (3.2-5.0); Alkaline Phosphatase 67 U/L (45-117); Anion Gap 8 (5-15); BUN 16 mg/dL (7-18); BUN/Creat Ratio 18.1 RATIO (10-20); Calcium,Total 8.9 mg/dL (8.5-10.1); Chloride 104 mmol/L (98-107); Cholesterol 183 mg/dL (200); Creatinine, Serum 0.88 mg/dL (0.70-1.30); EST Glomerular Filtration Rate 88 mL/min (>60); Est Glom Filt Rate - Afr Amer 106 mL/min (>60); Globulin 3.3 g/dL (2.2-4.2); Glucose 98 mg/dL (74-106); High Density Lipoprotein 45 mg/dL; Potassium 4.2 mmol/L (3.5-5.1); Protein, Total 7.1 g/dL (6.4-8.2); Sodium Level 141 mmol/L (136-145); Thyroid Stim Hormone (TSH) 2.09 uIU/mL (0.358-3.74); Triglycerides 169 mg/dL; Very Low Density Lipoprotein 34 mg/dL (5-40)
== END | disposition home or self-care (01) ==
LOC: MTLAB 11:23
PROVIDERS: PCP Family Medicine; Referring Provider Family Medicine; Visit Provider Family Medicine
DX: Z00.00 Encounter for general adult medical examination without abnormal findings (principal); R41.3 Other amnesia; E55.9 Vitamin D deficiency, unspecified; E53.8 Deficiency of other specified B group vitamins; G57.90 Unspecified mononeuropathy of unspecified lower limb; E03.9 Hypothyroidism, unspecified
CPT/HCPCS: 36415; 80053; 80061; 82306; 82607; 83036; 84443

== ENCOUNTER → 2022-07-15 | Outpatient (CLI) | payer MEDICARE, SELFPAY ==
--- NOTE | 2022-07-15 10:55 | RAD_ITS ---
STUDY: X-RAY CHEST REASON FOR EXAM: Male, 81 years old. Shortness of breath. 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 TECHNIQUE: PA and lateral views of the chest. COMPARISON: None. FINDINGS: Elevated right hemidiaphragm. The lungs are well expanded and free of infiltrate or mass. There is no demonstrated pleural abnormality. Normal size heart. Normal mediastinum and aden. Normal visualized pulmonary arteries. There is atherosclerotic calcification of the aortic arch with tortuosity. There are diffuse degenerative changes of the visualized thoracic spine. There is degenerative osteoarthritis of the bilateral shoulders. There is no demonstrated abnormality of the visualized soft tissue structures of the upper abdomen. RAD/Chest PA and Lateral IMPRESSION: No acute cardiopulmonary disease or major interval change. Electronically Signed: Jeremy Xiong DO at 18:15 EDT ,
== END | disposition home or self-care (01) ==
LOC: MTRAD 10:53
PROVIDERS: PCP Family Medicine; Referring Provider Internal Medicine Pulmonary Disease; Visit Provider Internal Medicine Pulmonary Disease
DX: R09.02 Hypoxemia (principal); R06.02 Shortness of breath
CPT/HCPCS: 71046

== ENCOUNTER → 2022-10-07 | Outpatient (CLI) | payer MEDICARE, SELFPAY ==
[2022-10-07 10:44] LABS: ALB/GLOB Ratio 1.1 RATIO (0.9-2.4); AST(SGOT) 18 U/L (15-37); Alanine Aminotransfer ALT/SGPT 32 U/L (16-61); Albumin, Serum 3.7 g/dL (3.2-5.0); Alkaline Phosphatase 69 U/L (45-117); Anion Gap 3 (5-15); BUN 19 mg/dL (7-18); BUN/Creat Ratio 19.9 RATIO (10-20); Calcium,Total 9.3 mg/dL (8.5-10.1); Chloride 107 mmol/L (98-107); Cholesterol 167 mg/dL (200); Creatinine, Serum 0.96 mg/dL (0.70-1.30); EST Glomerular Filtration Rate 80 mL/min (>60); Est Glom Filt Rate - Afr Amer 97 mL/min (>60); Globulin 3.3 g/dL (2.2-4.2); Glucose 99 mg/dL (74-106); High Density Lipoprotein 45 mg/dL; Potassium 4.1 mmol/L (3.5-5.1); Sodium Level 139 mmol/L (136-145); T4 Free Direct 0.86 ng/dL (0.76-1.46); Thyroid Stim Hormone (TSH) 2.48 uIU/mL (0.358-3.74); Triglycerides 110 mg/dL; Very Low Density Lipoprotein 22 mg/dL (5-40)
== END | disposition home or self-care (01) ==
LOC: MFPLAB 09:32
PROVIDERS: PCP Family Medicine; Visit Provider Family Medicine
DX: E78.5 Hyperlipidemia, unspecified (principal); E03.9 Hypothyroidism, unspecified
CPT/HCPCS: 36415; 80053; 80061; 84439; 84443

== ENCOUNTER → 2023-02-17 | Outpatient (CLI) | payer MEDICARE, SELFPAY ==
--- NOTE | 2023-02-17 14:49 | ECHOD_ITS ---
Reason For Study: CAD/ASHD Procedure This was a 2D Doppler, Color Flow transthoracic echocardiogram. Exam performed in department. Left Ventricle Normal size and thickness. The left ventricular ejection fraction is 65 %. Diastolic function is indeterminate. Right Ventricle Normal right ventricle. Atria The left atrium is moderately enlarged. The right atrium is mildly enlarged. Aneurysmal atrial septum. Mitral Valve Trivial mitral valve insufficiency. Tricuspid Valve Mild tricuspid valve insufficiency. Aortic Valve Trisinus/trileaflet aortic valve. Aortic sclerosis, no stenosis. Mild-Moderate (1-2+) aortic valve insufficiency. Pulmonic Valve The pulmonic valve is not well visualized. Great Vessels Mildly dilated aortic root. Pericardium/Pleural No pericardial effusion. MMode/2D Measurements & Calculations LVIDd: 5.0 cm IVSd: 1.1 cm Ao root diam: 4.0 cm LVIDs: 3.1 cm LVPWd: 1.1 cm LA dimension: 4.4 cm RVDd: 4.0 cm FS: 38.3 % LAV(MOD-bp): 68.6 ml LVAd ap4: 31.8 cm2 SV(MOD-sp4): 67.0 ml LAV(MOD-bp) Indexed: 30.9 ml/m2 LVLd ap4: 8.0 cm LAV(MOD-sp2): 60.5 ml EDV(MOD-sp4): 103.6 ml LAV(MOD-sp4): 75.6 ml EDV(sp4-el): 106.7 ml LVAs ap4: 16.4 cm2 LVLs ap4: 6.4 cm ESV(MOD-sp4): 36.6 ml ESV(sp4-el): 35.6 ml EF(MOD-sp4): 64.7 % EF(sp4-el): 66.6 % SV(sp4-el): 71.0 ml LA A4 area: 24.8 cm2 RA A4 area: 22.1 cm2 TAPSE: 2.2 cm Time Measurements MV dec time: 0.28 sec Doppler Measurements & Calculations MV E max jose eduardo: 68.4 cm/sec Lat Peak E' Jose Eduardo: 8.9 cm/sec Med Peak E' Jose Eduardo: 8.2 cm/sec MV A max jose eduardo: 96.9 cm/sec E/E' lat: 7.7 E/E' med: 8.3 MV E/A: 0.71 MV V2 max: 94.9 cm/sec MV P1/2t max jose eduardo: 88.3 cm/sec Ao V2 max: 155.1 cm/sec MV max P.6 mmHg MV P1/2t: 105.0 msec Ao max P.7 mmHg MV V2 mean: 49.2 cm/sec MV dec slope: 246.1 cm/sec2 Ao V2 mean: 103.0 cm/sec MV mean P.2 mmHg Ao mean P.0 mmHg MV V2 VTI: 40.8 cm MVA(P1/2t): 2.1 cm2 Ao V2 VTI: 37.6 cm AV (velocity ratio): 0.71 AI max jose eduardo: 338.6 cm/sec LV V1 max: 114.1 cm/sec PA V2 max: 74.1 cm/sec AI max P.9 mmHg LV V1 max P.2 mmHg AI dec slope: 167.9 cm/sec2 LV V1 mean P.7 mmHg AI P1/2t: 590.5 msec LV V1 mean: 75.4 cm/sec LV V1 VTI: 26.6 cm TR max jose eduardo: 286.1 cm/sec TR max P.7 mmHg ECHO/Echo Complete Interpretation Summary The left ventricular ejection fraction is 65 %. Diastolic function is indeterminate. The left atrium is moderately enlarged. The right atrium is mildly enlarged. Aneurysmal atrial septum. Mild tricuspid valve insufficiency. Mildly dilated aortic root. Mild-Moderate (1-2+) aortic valve insufficiency. Ordering Physician: Roxy Herbert Referring Physician: Roxy Herbert Performed By: Lew Harrington RCS
== END | disposition home or self-care (01) ==
PROVIDERS: PCP Family Medicine; Referring Provider Physician Assistant Medical; Visit Provider Physician Assistant Medical
DX: I25.10 Atherosclerotic heart disease of native coronary artery without angina pectoris (principal); I35.8 Other nonrheumatic aortic valve disorders
CPT/HCPCS: 93306

== ENCOUNTER → 2023-07-23 | Outpatient (CLI) | payer MEDICARE, SELFPAY ==
[2023-07-23 16:10] LABS: Hematocrit 44.4 % (40-54); Hemoglobin 14.7 g/dL (13.0-16.5); Mean Corp Hgb Conc 33.1 g/dL (32-36); Mean Corpuscular Hgb 33.3 pg (27.0-32.0); Mean Corpuscular Volume 100.7 fL (80-94); Mean Platelet Vol. 10.5 fl (6.2-12.0); Platelet Count 183 K/mm3 (150-450); RBC Distribution Width CV 13.9 % (11.6-14.6); RBC Distribution Width SD 52.2 fl (35.1-43.9); Red Blood Count 4.41 M/mm3 (4.6-6.2); White Blood Count 4.1 K/mm3 (4.4-11.0)
[2023-07-23 16:34] LABS: ALB/GLOB Ratio 1.2 RATIO (0.9-2.4); AST(SGOT) 27 U/L (15-37); Alanine Aminotransfer ALT/SGPT 31 U/L (16-61); Albumin, Serum 3.9 g/dL (3.2-5.0); Alkaline Phosphatase 69 U/L (45-117); Anion Gap 6 (5-15); BUN 18 mg/dL (7-18); BUN/Creat Ratio 18.3 RATIO (10-20); Calcium,Total 9.1 mg/dL (8.5-10.1); Chloride 105 mmol/L (98-107); Cholesterol 191 mg/dL (200); Creatinine, Serum 0.99 mg/dL (0.70-1.30); EST Glomerular Filtration Rate 77 mL/min (>60); Est Glom Filt Rate - Afr Amer 93 mL/min (>60); Globulin 3.3 g/dL (2.2-4.2); Glucose 95 mg/dL (74-106); High Density Lipoprotein 44 mg/dL; Potassium 4.1 mmol/L (3.5-5.1); Protein, Total 7.2 g/dL (6.4-8.2); Sodium Level 138 mmol/L (136-145); Triglycerides 159 mg/dL; Very Low Density Lipoprotein 32 mg/dL (5-40)
[2023-07-23 16:46] LABS: Vitamin B12 > 2000 pg/mL (211-911)
== END | disposition home or self-care (01) ==
LOC: MFPLAB 11:24
PROVIDERS: PCP Family Medicine; Visit Provider Family Medicine
DX: E03.9 Hypothyroidism, unspecified (principal); E53.8 Deficiency of other specified B group vitamins; I25.10 Atherosclerotic heart disease of native coronary artery without angina pectoris
CPT/HCPCS: 36415; 80053; 80061; 82607; 84439; 84443; 85027

== ENCOUNTER → 2024-02-18 | Outpatient (CLI) | payer MEDICARE, SELFPAY ==
[2024-02-18 10:46] LABS: Vitamin B12 1528 pg/mL (211-911)
[2024-02-18 10:52] LABS: ALB/GLOB Ratio 1.2 RATIO (0.9-2.4); AST(SGOT) 19 U/L (15-37); Alanine Aminotransfer ALT/SGPT 29 U/L (16-61); Albumin, Serum 3.8 g/dL (3.2-5.0); Alkaline Phosphatase 72 U/L (45-117); Anion Gap 6 (5-15); BUN 15 mg/dL (7-18); BUN/Creat Ratio 16.6 RATIO (10-20); Calcium,Total 9.1 mg/dL (8.5-10.1); Chloride 108 mmol/L (98-107); Cholesterol 198 mg/dL (200); EST Glomerular Filtration Rate 85 mL/min (>60); Est Glom Filt Rate - Afr Amer 103 mL/min (>60); Globulin 3.1 g/dL (2.2-4.2); Glucose 98 mg/dL (74-106); High Density Lipoprotein 47 mg/dL; Potassium 4.1 mmol/L (3.5-5.1); Protein, Total 6.9 g/dL (6.4-8.2); Sodium Level 140 mmol/L (136-145); Triglycerides 172 mg/dL; Very Low Density Lipoprotein 34 mg/dL (5-40)
== END | disposition home or self-care (01) ==
PROVIDERS: PCP Family Medicine; Visit Provider Family Medicine
DX: E78.5 Hyperlipidemia, unspecified (principal); E03.9 Hypothyroidism, unspecified; R41.3 Other amnesia
CPT/HCPCS: 36415; 80053; 80061; 82607; 84443

== ENCOUNTER → 2024-08-16 | Outpatient (CLI) | payer MEDICARE, SELFPAY ==
[2024-08-16 10:57] LABS: Microalbumin,Random Urine < 12.0 mg/L (NO RANGE EST.)
[2024-08-16 11:21] LABS: ALB/GLOB Ratio 1.9 RATIO (0.9-2.4); AST(SGOT) 30 U/L (<=37); Alanine Aminotransfer ALT/SGPT 34 U/L (<=46); Albumin, Serum 4.4 g/dL (3.4-4.8); Alkaline Phosphatase 69 U/L (40-129); Anion Gap 12 (5-15); BUN 18 mg/dL (4-19); BUN/Creat Ratio 21.4 RATIO (10-20); Calcium,Total 9.5 mg/dL (7.6-11.0); Chloride 105 mmol/L (98-108); Creatinine, Serum 0.82 mg/dL (0.70-1.20); EST Glomerular Filtration Rate 86 (>60); Globulin 2.3 g/dL (2.2-4.2); Glucose 99 mg/dL (70-99); Potassium 4.1 mmol/L (3.3-5.1); Protein, Total 6.7 g/dL (5.9-8.4); Sodium Level 142 mmol/L (133-145); Total Bilirubin 0.58 mg/dL (0.00-1.30); Vitamin B12 1251 pg/mL (180-914)
== END | disposition home or self-care (01) ==
LOC: MFPLAB 09:26
PROVIDERS: PCP Family Medicine; Referring Provider Family Medicine; Visit Provider Family Medicine
DX: Z00.00 Encounter for general adult medical examination without abnormal findings (principal); E03.9 Hypothyroidism, unspecified; E53.8 Deficiency of other specified B group vitamins; R19.00 Intra-abdominal and pelvic swelling, mass and lump, unspecified site
CPT/HCPCS: 36415; 80053; 82043; 82607; 84443

== ENCOUNTER → 2024-08-24 | Outpatient (CLI) | payer MEDICARE, SELFPAY ==
--- NOTE | 2024-08-24 09:07 | US_ITS ---
PROCEDURE: ABDOMEN COMPLETE 08/24/2024 REASON FOR EXAM: R ABD SWELLING TECHNIQUE: Complete abdominal ultrasound salguero-scale images with color doppler. PATIENT PREPARATION: Per protocol COMPARISON: None. FINDINGS: Hepatomegaly measuring 17.8 cm. Increased hepatic echogenicity suggestive of hepatic steatosis. Unremarkable hepatopetal flow in the main portal vein. Prior cholecystectomy. Nondilated common bile duct measuring 6 mm. Unremarkable visualized pancreas. Unremarkable right kidney measuring 11 x 6 x 5.4 cm with a renal cortical thickness measuring 1.5 cm. Unremarkable left kidney measuring 11.5 x 5.5 x 6 cm with a renal cortical thickness measuring 1.6 cm. Simple cyst is noted in the medial aspect of the left kidney measuring 5.6 x 4.8 x 4.8 cm. Unremarkable spleen measuring 10.3 x 5.2 x 3.7 cm. The abdominal aorta is not visualized. Unremarkable spleen measuring 10.3 x 5.2 x 3.7 cm. Nonaneurysmal mid and distal aorta measuring 2.2 and 2 cm respectively. Nonvisualization of the proximal aorta secondary to overlying bowel gas. No evidence of ascites. Patent visualized IVC. US/Abdomen Complete IMPRESSION: Hepatomegaly. Hepatic steatosis. Prior cholecystectomy. Reading [facility] [id number]
== END | disposition home or self-care (01) ==
PROVIDERS: PCP Family Medicine; Referring Provider Family Medicine; Visit Provider Family Medicine
DX: R19.00 Intra-abdominal and pelvic swelling, mass and lump, unspecified site (principal)
CPT/HCPCS: 76700

== ENCOUNTER → 2025-02-14 | Outpatient (CLI) | payer MEDICARE, SELFPAY ==
--- OUTSIDE RECORDS SUMMARY | 2025-02-14 09:56 | XMS RPT_ITS | CCD ---
Author Organization [facility] Care Team Providers Care [employer] Name Role Phone Laney Sánchez Unavailable Unavailable Richar Treadwell MD Unavailable Laney Sánchez Unavailable Unavailable Leah Sibley Unavailable Unavailable Dr. Michael Yen Primary Care Provider [phone] Dr. Michael Yen Referring Provider Dr. Richar Treadwell Attending Provider Dr. Richar Treadwell Other Provider Dr. Richar Treadwell Referring Provider Dr. Michael Yen Primary Care Provider Dr. Richar Treadwell Attending Provider Dr. Richar Treadwell Other Provider Dr. Richar Treadwell Referring Provider Dr. Baldomero Yen MD Primary Care Provider Dr. Baldomero Yen MD Attending Provider [phone] Dr. Baldomero Yen MD Referring Provider [phone] Girish Kiran Attending Provider Baldomero Yen Referring Unavailable Baldomero Yen Primary Care Unavailable Baldomero Yen Attending Unavailable Baldomero Yen Primary Care Unavailable Baldomero Yen Attending Unavailable Baldomero Yen Referring Unavailable Baldomero Yen Primary Care Unavailable Baldomero Yen Attending Unavailable Baldomero Yen Primary Care Unavailable Girish Kiran Attending Unavailable Baldomero Yen Referring Unavailable Baldomero Yen Referring Unavailable Baldomero Yen Primary Care Unavailable Roxy Herbert Attending Unavailabl e Allergies Allergy Classification Reported Allergen(s) Allergy Type Date of Onset Reaction(s) Facility (4 sources) Hmg-Coa Reductase Inhibitors (Statins) drug allergy 1 Intolerance, myalgias [facility] [employer] Work Phone: (7 sources) Vqczdfg-Yrk-Mkl Reductase Inhibitor Propensity to adverse reactions 2 Intolerence, Myalgias [facility] (1 source) Mcqvwjn-Keg-Rcu Reductase Inhibitor Drug allergy (disorder) 5 [facility] Repository Medications Current Medications Medication Drug Class(es) Dates Sig (Normalized) Sig (Original) ascorbic acid 1000 mg oral tablet (20 sources) Vitamin C Start: 08-12-2017 End: 12-26-2019 take 1 g by mouth once daily as needed Ascorbic Acid (Vitamin C) 1,000 mg tablet Active 1 g PO daily as needed December 26, 2019 10:41am Start: 08-12-2017 End: 12-26-2019 take 1 g by mouth once daily Ascorbic Acid (Vitamin C) Active 1 GM PO daily December 26, 2019 10:41am Start: 08-18-2016 take 1 tablet by ranjan once daily VITAMIN C 1000 MG TABS One tablet by mouth daily ASCORBIC ACID [id number] Richar Treadwell MD Start: 08-09-2008 End: 06-28-2012 take 1 tablet by mouth once daily VITAMIN C 1000 MG TABS One tablet by mouth daily ASCORBIC ACID [id number] Richar Treadwell MD aspirin 81 mg delayed release oral tablet (20 sources) Platelet Aggregation Inhibitor, Nonsteroidal Anti-inflammatory Drug Start: 12-27-2018 take 2 tablets by mouth once daily Aspirin 81 mg tablet,delayed release (DR/EC) Active 162 mg PO daily December 27, 2018 9:17am Start: 12-27-2018 take 162 mg by mouth once alisha y Aspirin Active 162 MG PO daily December 27, 2018 9:17am Start: 08-12-2017 End: 12-27-2018 take 1 tablet by mouth once daily Aspirin 81 mg tablet,delayed release (DR/EC) Discontinued 81 mg PO daily August 12, 2017 12:00am December 27, 2018 9:18am Start: 06-27-2013 take 1 tablet by ranjan th once daily ASPIRIN EC 81 MG TBEC One tablet by mouth daily ASPIRIN [id number] Leah Sibley Start: 06-30-2011 End: 06-27-2013 take 1 tablet by mouth once daily ASPIRIN 81 MG TABS One tablet by mouth daily ASPIRIN [id number] Richar Treadwell MD Start: 06-30-2011 End: 06-27-2013 take 1 tablet by mouth once daily ASPIRIN 81 MG TABS One tablet by mouth daily ASPIRIN [id number] Richar Treadwell MD Start: 08-09-2008 take 1 tablet by ranjan th once daily ASPIRIN 325 MG TABS One tablet by mouth daily ASPIRIN [id number] Claudia Vincent cholecalciferol 0.025 mg oral capsule (20 sources) Vitamin D Start: 10-30-2017 take 2 capsules by mouth twice daily Cholecalciferol (Vitamin D3) 1,000 unit capsule Active 2000 U PO TWICE A DAY October 30, 2017 10:10am Start: 10-30-2017 take 2000 [IU] by mo ut twice daily Cholecalciferol (Vitamin D3) Active 2000 UNIT PO TWICE A DAY October 30, 2017 10:10am Start: 08-12-2017 End: 10-30-2017 take 1 capsule by mouth twice daily Cholecalciferol (Vitamin D3) 1,000 unit capsule Discontinued 1000 U PO TWICE A DAY August 12, 2017 12:00am October 30, 2017 10:11am Start: 06-28-2012 End: 06-27-2013 take 1 tablet by mouth once daily VITAMIN D 1000 UNIT CAPS One tablet by mouth daily CHOLECALCIFEROL [id number] Richar Treadwell MD Start: 07-19-2007 take 1 tablet by ranjan th twice daily VITAMIN D 400 UNIT TABS One tablet by mouth twice daily CHOLECALCIFEROL [id number] Claudia Vincent donepezil hydrochloride 5 mg oral tablet (7 sources) Start: 09-27-2019 take 1 tablet by mouth once daily Donepezil 5 MG tablet Active 5 mg PO DAILY September 27, 2019 12:00am Lactobacillus Combination No.8 (Adult Probiotic) 3 billion cell capsule (7 sources) Start: 08-12-2017 take 3 capsules by mouth once daily Lactobacillus Combination No.8 (Adult Probiotic) 3 billion cell capsule Active 3000 NMA PO daily August 12, 2017 12:00am Start: 08-12-2017 take 3 capsules by m outh once daily Lactobacillus Combination No.8 (Adult Probiotic) 3 billion cell capsule Active 3000 MMU CELLS PO daily August 11, 2017 11:00pm Start: 08-12-2017 take 3 capsules by m outh once daily Lactobacillus Combination No.8 (Adult Probiotic) 3 billion cell capsule Active 3000 MMU CELLS PO daily August 12, 2017 12:00am levothyroxine sodium 0.05 mg oral tablet (7 sources) l-Thyroxine Start: 12-27-2018 take 1 tablet by mouth once daily Levothyroxine 50 mcg tablet Active 50 ug PO DAILY December 27, 2018 12:00am [place]-3 Fatty Acids (Fish Oil Concentrate) 1,000 mg capsule (7 sources) Start: 08-12-2017 take 1 capsule by mouth once daily [place]-3 Fatty Acids (Fish Oil Concentrate) 1,000 mg capsule Active 1000 mg PO daily August 12, 2017 12:00am Start: 08-12-2017 take 1 capsule by mo uth once daily [place]-3 Fatty Acids (Fish Oil Concentrate) 1,000 mg capsule Active 1000 MG PO daily August 11, 2017 11:00pm Start: 08-12-2017 take 1 capsule by mo uth once daily [place]-3 Fatty Acids (Fish Oil Concentrate) 1,000 mg capsule Active 1000 MG PO daily August 12, 2017 12:00am vit C 150 mg-vit E 30 unit-lutein 5 tj-xlgkpjou-ncrhs 3 150 mg capsule (4 sources) Start: 08-12-2017 take 1 capsule by mouth twice daily vit C 150 mg-vit E 30 unit-lutein 5 hb-hzueybin-xvsxf 3 150 mg capsule Active 1 CAP PO TWICE A DAY August 11, 2017 11:00pm Start: 08-12-2017 take 1 capsule by mo uth twice daily vit C 150 mg-vit E 30 unit-lutein 5 fn-odrecwzk-iydxr 3 150 mg capsule Active 1 CAP PO TWICE A DAY August 12, 2017 12:00am Vit C-Vit V-Mtnhco-Pys-Om-3 (Ocuvite) 520-21-6-150 fw-hqal-mn-mg capsule (3 sources) Start: 08-12-2017 take 1 capsule by mouth twice daily Vit C-Vit Q-Vkxqky-Ewp-Om-3 (Ocuvite) 743-42-4-150 na-djvj-uj-mg capsule Active 1 NMA PO TWICE A DAY August 12, 2017 12:00am zinc gluconate 50 mg oral tablet (3 sources) Start: 01-16-2023 take 1 tablet by mouth once daily Zinc Gluconate 50 mg tablet Active 50 mg PO DAILY January 16, 2023 12:00am Completed/Discontinued Medications Medication Drug Class(es) Dates Sig (Normalized) Sig (Original) acetaminophen 500 mg oral tablet (8 sources) Start: 05-27-2010 End: 06-27-2013 ACETAMINOPHEN 500 MG TABS (Tylenol) Take as directed ACETAMINOPHEN [id number] Claudia Vincent albuterol 0.83 mg/ml inhalant solution (8 sources) beta2-Adrenergic Agonist Start: 10-01-2001 End: 06-28-2012 ALBUTEROL SULFATE NEBU 90 Mcg/inh - PRN ALBUTEROL SULFATE NEBU [id number] Claudia Vincent Ascorbic Acid / Beta Carotene / cuprous oxide / Lutein / sodium selenate / Vitamin E / Zinc Oxide (8 sources) Vitamin C Start: 08-09-2008 take 1 tablet by mouth twice daily OCUVITE TABS Antioxidant multiple vitamins & Minerals- One tablet by mouth twice daily MULTIPLE VITAMINS-MINERALS [id number] Richar Treadwell MD Start: 08-09-2008 take 1 tablet by ranjan th once daily OCUVITE TABS Antioxidant multiple vitamins & Minerals One tablet by mouth daily MULTIPLE VITAMINS-MINERALS [id number] Claudia Vincent Start: 08-09-2008 take 1 tablet by ranjan th twice daily OCUVITE TABS Antioxidant multiple vitamins & Minerals- One tablet by mouth twice daily MULTIPLE VITAMINS-MINERALS [id number] Richar Treadwell MD Start: 08-09-2008 take 1 tablet by ranjan th once daily OCUVITE TABS Antioxidant multiple vitamins & Minerals One tablet by mouth daily MULTIPLE VITAMINS-MINERALS [id number] Claudia Vincent ASPIRIN TBEC (1 source) Start: 06-27-2013 take 1 tablet by mouth once daily ASPIR-81 TBEC One tablet by mouth daily ASPIRIN TBEC [id number] Richar Treadwell MD calcium carbonate 1500 mg / cholecalciferol 200 unt oral tablet (6 sources) Vitamin D Start: 08-09-2008 End: 06-30-2011 take 1 tablet by mouth once daily CALCIUM + D 600-200 MG-UNIT TABS One tablet by mouth daily CALCIUM CARBONATE-VITAMIN D [id number] Richar Treadwell MD calcium carbonate / vitamin D (2 sources) Start: 08-09-2008 End: 06-30-2011 take 1 tablet by mouth once daily CALCIUM + D 600-200 MG-UNIT TABS One tablet by mouth daily CALCIUM CARBONATE-VITAMIN D [id number] Richar Treadwell MD Start: 08-09-2008 take 1 tablet by ranjan th once daily CALCIUM + D 600-200 MG-UNIT TABS One tablet by mouth daily CALCIUM CARBONATE-VITAMIN D [id number] Claudia Vincent CINNAMON CAPS (8 sources) Non-Standardized Food Allergenic Extract Start: 06-28-2012 End: 06-27-2013 take 2 tablets by mouth once daily CINNAMON CAPS Two tablets by mouth daily CINNAMON CAPS [id number] Richar Treadwell MD Start: 06-28-2012 take 2 tablets by mo ut once daily CINNAMON CAPS Two tablets by mouth daily CINNAMON CAPS [id number] Richar Treadwell MD Fish Oils (11 sources) Start: 08-18-2016 take 1 tablet by ranjan th once daily FISH OIL CAPS One tablet by mouth daily OMEGA-3 FATTY ACIDS CAPS [id number] Richar Treadwell MD Start: 08-09-2008 take 1 tablet by ranjan th once daily FISH OIL CAPS One tablet by mouth daily OMEGA-3 FATTY ACIDS CAPS [id number] Claudia Vincent Start: 08-09-2008 End: 06-27-2013 take 1 tablet by mouth once daily FISH OIL CAPS One tablet by mouth daily OMEGA-3 FATTY ACIDS CAPS [id number] Richar Treadwell MD ibuprofen 400 mg oral tablet (8 sources) Nonsteroidal Anti-inflammatory Drug Start: 07-30-2009 End: 06-30-2011 take 1 tablet by mouth four times daily IBUPROFEN 400 MG TABS One tablet by mouth four times daily IBUPROFEN [id number] Claudia Vincent LACTOBACILLUS CAPS (2 sources) Start: 07-24-2014 take 1 tablet by mouth once daily ACIDOPHILUS CAPS One tablet by mouth daily LACTOBACILLUS CAPS [id number] Richar Treadwell MD Start: 07-24-2014 take 1 tablet by ranjan th twice daily ACIDOPHILUS CAPS One tablet by mouth twice daily LACTOBACILLUS CAPS [id number] Richar Treadwell MD LACTOBACILLUS CAPS (6 sources) Start: 07-24-2014 take 1 tablet by mouth once daily ACIDOPHILUS CAPS One tablet by mouth daily LACTOBACILLUS CAPS [id number] Richar Treadwell MD Start: 07-24-2014 take 1 tablet by ranjan twice daily ACIDOPHILUS CAPS One tablet by mouth twice daily LACTOBACILLUS CAPS [id number] Richar Treadwell MD lansoprazole 30 mg delayed release oral capsule (12 sources) Proton Pump Inhibitor Start: 08-09-2008 End: 06-27-2013 take 1 tablet by mouth once daily PREVACID 30 MG CPDR One tablet by mouth daily LANSOPRAZOLE [id number] Richar Treadwell MD Start: 08-09-2008 End: 06-27-2013 take 1 tablet by mouth once daily PREVACID 30 MG CPDR One tablet by mouth daily LANSOPRAZOLE 55245080862 Richar Treadwell MD [facility] NATURAL PRODUCTS (2 sources) Start: 06-28-2012 End: 06-27-2013 take 2 tablets by mouth once daily TART NICOLAS ADVANCED CAPS Two tablets by mouth daily [facility] NATURAL [employer]ODUCTS [id number] Richar Treadwell MD Start: 06-28-2012 take 2 tablets by mo uth once daily TART NIC[place]AS ADVANCED CAPS Two tablets by mouth daily [facility] [employer]URAL [employer]ODUCTS [id number] Richar Treadwell MD [facility] NATURAL PRODUCTS (6 sources) Start: 06-28-2012 take 2 tablets by mouth once daily TART NICOLAS ADVANCED CAPS Two tablets by mouth daily [facility] [employer]CTS [id number] Richar Treadwell MD Start: 06-28-2012 End: 06-27-2013 take 2 tablets by mouth once daily TART NICOLAS ADVANCED CAPS Two tablets by mouth daily [facility] [employer] [id number] Richar Treadwell MD niacin 1000 mg oral tablet (20 sources) Nicotinic Acid Start: 06-30-2011 End: 06-27-2013 take 1 tablet by mouth once daily NIASPAN 1000 MG CR-TABS One tablet by mouth daily NIACIN (ANTIHYPERLIPIDEMIC) [id number] Richar Treadwell MD Start: 01-18-2007 End: 06-27-2013 take 1 tablet by mouth once daily NIASPAN 1000 MG CR-TABS One tablet by mouth daily NIACIN (ANTIHYPERLIPIDEMIC) [id number] Richar Treadwell MD nitroglycerin 0.4 mg sublingual tablet (4 sources) Nitrate Vasodilator Start: 08-09-2008 NITROSTAT 0.4 MG SUBL 1 tablet under tongue every 5 min up to 3 X NITROGLYCERIN [id number] Claudia Vincent CHOLECALCIFEROL (4 sources) Start: 07-30-2015 take 1 tablet by mouth twice daily VITAMIN D 1000 UNIT TABS One tablet by mouth twice daily CHOLECALCIFEROL [id number] Richar Treadwell MD Start: 07-30-2015 take 1 tablet by ranjan th twice daily VITAMIN D 1000 UNIT TABS One tablet by mouth twice daily CHOLECALCIFEROL [id number] Richar Treadwell MD Problems Active Problems Problem Classification Problem Date Documented Da te Episodic/Chronic Aortic; peripheral; and visceral artery aneurysms (4 sources) Aortic root dilatation; Translations: [Thoracic aortic ectasia] Onset: 4 01-16-2023 Chronic Coronary atherosclerosis and other heart disease (20 sources) Coronary atherosclerosis; Translations: [Atherosclerotic heart disease of [place] coronary artery without angina pectoris] Onset: 1 05-27-2010 Chronic Comment on above: Mild Disorders of lipid metabolism (14 sources) Hyperlipidemia; Translations: [Hyperlipidemia, unspecified] Onset: 1 05-27-2010 Chronic Esophageal disorders (4 sources) Gastroesophageal reflux disease; Translations: [Gastro-esophageal reflux disease without esophagitis] Onset: 1 05-27-2010 Chronic Heart valve disorders (7 sources) Non-rheumatic aortic sclerosis; Translations: [Other nonrheumatic aortic valve disorders] Onset: 4 01-08-2022 Chronic Osteoarthritis (4 sources) Osteoarthritis of knee; Translations: [Osteoarthritis of knee, unspecified] 01-07-2013 Chronic Other gastrointestinal disorders (1 source) Intra-abdominal and pelvic swelling, mass and lump, unspecified site; Translations: [Intra-abdominal and pelvic swelling, mass and lump, unspecified site] Onset: 5 Episodic Other nervous system disorders (3 sources) Numbness of lower limb ; Translations: [Anesthesia of skin] 01-25-2024 Episodic Other nutritional; endocrine; and metabolic disorders (6 sources) Body mass index (BMI) 31.0-31.9, adult; Translations: [Body mass index (BMI) 32.0-32.9, adult] Onset: 4 07-24-2014 Chronic Other nutritional; endocrine; and metabolic disorders (3 sources) Body mass index (BMI) 33.0-33.9, adult; Translations: [Body mass index (BMI) 33.0-33.9, adult] Onset: 4 07-30-2015 Chronic Other nutritional; endocrine; and metabolic disorders (3 sources) Body mass index (BMI) 32.0-32.9, adult; Translations: [Body mass index (BMI) 32.0-32.9, adult] Onset: 4 06-27-2013 Chronic Superficial injury; contusion (3 sources) Abrasion of right upper arm, initial encounter; Translations: [Abrasion of skin of right upper arm] Onset: 5 10-07-2024 Episodic Unclassified (1 source) Preoperative cardiovascular examination ; Translations: [Encounter for preprocedural cardiovascular examination] Onset: 7 08-18-2016 Unclassified (6 sources) Long-term drug therapy; Translations: [Long-term (current) use of other medications] Onset: 2 07-07-2011 Past or Other Problems Problem Classification Problem Date Documented Date Episodic/Chronic Conditions associated with dizziness or vertigo (4 sources) Dizziness and giddiness; Translations: [Dizziness and giddiness] Onset: 05-27-2010 05-27-2010 Episodic Nonspecific chest pain (4 sources) Precordial pain; Translations: [Precordial pain] Onset: 05-27-2010 05-27-2010 Episodic Other aftercare (2 sources) Other petroleum terminal plant operator (current) drug therapy; Translations: [Long-term (current) use of other medications] Onset: 07-07-2011 08-07-2015 Episodic Other connective tissue disease (4 sources) Prepatellar bursitis; Translations: [Prepatellar bursitis, unspecified knee] 01-07-2013 Episodic Other lower respiratory disease (8 sources) Dyspnea; Translations: [Shortness of breath] Onset: 05-27-2010 05-27-2010 Episodic Other nervous system disorders (1 source) Anesthesia of skin; Translations: [Anesthesia of skin] Onset: 01-25-2024 Episodic Other non-traumatic joint disorders (4 sources) Knee pain; Translations: [Pain in unspecified knee] 04-15-2013 Episodic Other screening for suspected conditions (not mental disorders or infectious disease) (4 sources) Echocardiogram abnormal; Translations: [Abnormal findings on diagnostic imaging of heart and coronary circulation] Onset: 05-27-2010 05-27-2010 Episodic Results Test Name Value Interpretation Reference Range Facility Urgent Care Visit Reporton 0 10-07-2024 Urgent Care Visit Report [facility] [address], [address] [place] [address] OFFICE VISIT Date of Service: 10/07/24 MR#: [id number] Acct: [id number] Name: BUBBA JASMINE Rep #: [id number] : 1940 Provider: GALEN Ace Age/Sex: 84/M Location: [facility] Status: Signed Intake Vital Signs 01/25/24 08:36 10/07/24 12:16 Height 5 ft 10 in 5 ft 10 in Weight: 225 lb BMI 32.3 BP 138/58 H Blood Pressure Location Lt brachial Position Sitting Respiration 16 Pulse 60 Pulse Source Monitor Temp 98.4 F Temp Source Oral Pulse Oximetry (%) 94 Oxygen Delivery Method room air Intake Visit Reasons: TICK BITE R ARM Chief Complaint: Concern for Tick Bite Senior Program Planner Required: No Accompanied by: Is patient in pain?: No Allergies Lwixxwj-ZNX-PxJ Reductase Inhibitor (Haforen-Kpb-Wkh Reductase Inhibitor) Adverse Reaction (Severe, Verified 10/07/24 12:06) Intolerence, Myalgias Medications ???Medication ???Instructions ???Recorded ???Confirmed ???Type lactobacillus combination no.8 3 3,000 mmu cells PO QDAY 08/12/17 0 10/07/24 History billion cell capsule (Adult Probiotic) omega-3 fatty acids 1,000 mg 1,000 mg PO QDAY 08/12/17 10/07/24 History capsule (Fish Oil Concentrate) vit C 150 mg-vit E 30 unit-lutein 1 cap PO BID 08/12/17 10/07/24 Hi story 5 ir-bqmwxmyj-zkalb 3 150 mg capsule (Ocuvite) cholecalciferol (vitamin D3) 25 2,000 unit PO BID 10/30/17 5 History mcg (1,000 unit) capsule aspirin 81 mg tablet,delayed 162 mg PO QDAY 12/27/18 10/07/24 H istory release levothyroxine 50 mcg tablet 50 mcg PO DAILY 12/27/18 10/07/24 History donepezil 5 mg tablet 5 mg PO DAILY 09/27/19 10/07/24 Hi story ascorbic acid (vitamin C) 1,000 mg 1 g PO QDAY PRN 12/26/19 5 History tablet zinc gluconate 50 mg tablet 50 mg PO DAILY 01/16/23 10/07/24 H istory Have you fallen in the past year?: No Nurse's Note: Concerned for a tick bite on upper R arm near shoulder. He reports seeing a red [facility] 3 days ago. But has been healing just fine since and has no symptoms. [facility] Medical History Dilated aortic root Nonrheumatic aortic sclerosis YAZMIN (obstructive sleep apnea) Arthritis Diverticulitis GERD (gastroesophageal reflux disease) Hyperlipidemia Atherosclerotic heart disease of [place] coronary artery without angina pectoris Surgical History History of knee replacement procedure of left knee History of knee replacement procedure of right knee History of cataract surgery History of hernia repair History of cholecystectomy Family History Father CHF (congestive heart failure) Mother CAD (coronary artery disease) Sister Hypertension Social History Smoking Status: Never smoker alcohol intake: never HPI HPI Chief Complaint: Concern for Tick Bite Details: BUBBA JASMINE, is a 84 M who presents to the office today for concern for a tick bite to his right arm. Patient states he noticed a small lesion on his right arm 2 days ago and states that it was about the size of a pencil eraser. He states not seeing any ticks or other insects. He is unaware of any specific injury to the arm. He has had no fever, chills or sweats. No nausea, vomiting or diarrhea. No fatigue or bodyaches. No other associated symptoms or alleviating/aggravat ing factors. ROS Const Constitutional: No other (6 system ROS completed with pertinent findings in the HPI otherwise normal.) Exam Const General: cooperative and healthy appearing Resp Effort Inspection: normal respiratory effort Cardio Rate: regular rate Skin Other: Small abrasion right upper arm without surrounding erythema or warmth. Neuro General: patient alert Psych Appearance: grossly normal Mental Status: mental status grossly normal Coding Level of Care Code Off vis,new,level 3 Diagnoses Abrasion of skin of right upper arm S40.811A Assessment and Plan Assessment and Plan (1) Abrasion of skin of right upper arm: Status: Acute Plan: Patient advised that the area is more likely a small skin abrasion and not a insect bite. Advised he may follow-up with his PCP in 4 to 6 weeks for blood testing if he wants to make sure he has not been exposed to Lyme. Advised of Lyme disease symptoms. Patient verbalized understanding and agreement with all the above. Clinical Quality Measures Falls Risk Screening/Assistive Devices Have you fallen in the past year?: No 10/07/24 7202 Date Girish AARON (more content not included)... Normal [facility] Abdomen Completeon Abdomen Complete [facility] Imaging Services [address] [place], [place] [id number] Abdomen Complete MR#: [id number] Acct: [id number] Name: BUBBA JASMINE Rep #: [id number] : 1940 M 84 From: Sherin quinones MD PCP: Dr. Baldomero Yen MD Status: REG CLI Study: Abdomen Complete Date of Exam: 08/24/24 Exam# [id number] Ordering Dr: Baldomero Yen PROCEDURE: ABDOMEN COMPLETE 08/24/2024 REASON FOR EXAM: R ABD SWELLING TECHNIQUE: Complete abdominal ultrasound salguero-scale images with color doppler. PATIENT PREPARATION: Per protocol COMPARISON: None. FINDINGS: Hepatomegaly measuring 17.8 cm. Increased hepatic echogenicity suggestive of hepatic steatosis. Unremarkable hepatopetal flow in the main portal vein. Prior cholecystectomy. Nondilated common bile duct measuring 6 mm. Unremarkable visualized pancreas. Unremarkable right kidney measuring 11 x 6 x 5.4 cm with a renal cortical thickness measuring 1.5 cm. Unremarkable left kidney measuring 11.5 x 5.5 x 6 cm with a renal cortical thickness measuring 1.6 cm. Simple cyst is noted in the medial aspect of the left kidney measuring 5.6 x 4.8 x 4.8 cm. Unremarkable spleen measuring 10.3 x 5.2 x 3.7 cm. The abdominal aorta is not visualized. Unremarkable spleen measuring 10.3 x 5.2 x 3.7 cm. Nonaneurysmal mid and distal aorta measuring 2.2 and 2 cm respectively. Nonvisualization of the proximal aorta secondary to overlying bowel gas. No evidence of ascites. Patent visualized IVC. US/Abdomen Complete IMPRESSION: Hepatomegaly. Hepatic steatosis. Prior cholecystectomy. [facility] CC: Dr. Baldomero Yen MD Weather Clerk: Signed Normal [facility] Anion gap in Serum or Plasma Ordered By: Baldomero Yen on 08-16-2024 Anion gap [Moles/Vol] 12 mmol/L 5-15 [facility] BUN/creatinine ratioOrdered By: Baldomero Yen on 08-16-2024 Urea nitrogen/Creatinine [Mass ratio] 21.4 mg/mg High 10-20 [facility] Bilirubin, totalOrdered By: Baldomero Yen on 08-16-2024 Bilirubin [Mass/Vol] 0.58 mg/dL 0.00-1.30 [facility] [facility] Carbon dioxide, total [Moles /volume] in Central venous bloodOrdered By: Baldomero Yen on 08-16-2024 CO2 [Moles/Vol] 25.0 mmol/L 21.0-32.0 [facility] Chloride assayOrdered By: Jalyn Yen on 08-16-2024 Chloride [Moles/Vol] 105 mmol/L 98-108 [facility] Comprehensive Metabolic Prof ilon 08-16-2024 Albumin [Mass/Vol] 4.4 g/dL Normal 3.4-4.8 [facility] Comment on above: Performed By: #### L 500.4050, L501.9520, L502.0500, L503.0106 #### [facility] [address] [place], [address] Albumin/Globulin [Mass ratio] 1.9 {ratio} Normal 0.9-2.4 [facility] Comment on above: Performed By: #### L 500.4050, L501.9520, L502.0500, L503.0106 #### [facility] [address] [place], [address] ALK PHOS 69 U/L Normal 40-129 [facility] Comment on above: Performed By: #### L 500.4050, L501.9520, L502.0500, L503.0106 #### [facility] [address] [place], [address] ALT [Catalytic activity/Vol] 34 U/L Normal <=46 [facility] Comment on above: Performed By: #### L 500.4050, L501.9520, L502.0500, L503.0106 #### [facility] [address] [place], [address] AST [Catalytic activity/Vol] 30 U/L Normal <=37 [facility] Comment on above: Performed By: #### L 500.4050, L501.9520, L502.0500, L503.0106 #### [facility] [address] [place], [address] Bilirubin [Mass/Vol] 0.58 mg/dL Normal 0.00-1.30 [facility] Comment on above: Performed By: #### L 500.4050, L501.9520, L502.0500, L503.0106 #### [facility] [address] [place], [address] BUN/CRE 21.4 RATIO High 10-20 [facility] Comment on above: Performed By: #### L 500.4050, L501.9520, L502.0500, L503.0106 #### [facility] [address] [place], [address] Calcium [Mass/Vol] 9.5 mg/dL Normal 7.6-11.0 [facility] Comment on above: Performed By: #### L 500.4050, L501.9520, L502.0500, L503.0106 #### [facility] [address] [place], [address] Chloride [Moles/Vol] 105 mmol/L Normal 98-108 [facility] Comment on above: Performed By: #### L 500.4050, L501.9520, L502.0500, L503.0106 #### [facility] [address] [place], [address] CO2 [Moles/Vol] 25.0 mmol/L Normal 21.0-32.0 [facility] Comment on above: Performed By: #### L 500.4050, L501.9520, L502.0500, L503.0106 #### [facility] [address] [place], [address] Creatinine [Mass/Vol] 0.82 mg/dL Normal 0.70-1.20 [facility] Comment on above: Performed By: #### L 500.4050, L501.9520, L502.0500, L503.0106 #### [facility] [address] [place], [address] GAP 12 Normal 5-15 [facility] Comment on above: Performed By: #### L 500.4050, L501.9520, L502.0500, L503.0106 #### [facility] [address] [place], [address] GFR/1.73 sq M.predicted among non-blacks MDRD (S/P/Bld) [Vol rate/Area] 86 mL/min/{1.73_m2} Normal >60 [facility] Comment on above: Result Comment: mL/m in/1.73m2 CKD-EPI Creatinine Equation (2020) Performed By: #### L 500.4050, L501.9520, L502.0500, L503.0106 #### [facility] [address] [place], [address] Globulin (S) [Mass/Vol] 2.3 g/dL Normal 2.2-4.2 [facility] Comment on above: Performed By: #### L 500.4050, L501.9520, L502.0500, L503.0106 #### [facility] [address] [place], [address] Glucose [Mass/Vol] 99 mg/dL Normal 70-99 [facility] Comment on above: Performed By: #### L 500.4050, L501.9520, L502.0500, L503.0106 #### [facility] [address] [place], [address] Potassium [Moles/Vol] 4.1 mmol/L Normal 3.3-5.1 [facility] Comment on above: Performed By: #### L 500.4050, L501.9520, L502.0500, L503.0106 #### [facility] [address] [place], [address] Sodium [Moles/Vol] 142 mmol/L Normal 133-145 [facility] Comment on above: Performed By: #### L 500.4050, L501.9520, L502.0500, L503.0106 #### [facility] [address] [place], [address] T PROT 6.7 g/dL Normal 5.9-8.4 [facility] Comment on above: Performed By: #### L 500.4050, L501.9520, L502.0500, L503.0106 #### [facility] [address] [place], [address] Urea nitrogen [Mass/Vol] 18 mg/dL Normal 4-19 [facility] Comment on above: Performed By: #### L 500.4050, L501.9520, L502.0500, L503.0106 #### [facility] [address] [place], [address] Glomerular filtration rate ( GFR) estimation/1.73 sq m using serum, plasma, or whole bOrdered By: Baldomero Yen on 08-16-2024 GFR/1.73 sq M.predicted among non-blacks MDRD (S/P/Bld) [Vol rate/Area] 86 mL/min/{1.73_m2} >60 [facility] Comment on above: mL/min/1.73m2 CKD-EP I Creatinine Equation (2020) Laboratory - Chemistry and C hemistry - challengeOrdered By: Baldomero Yen on 08-16-2024 AST [Catalytic activity/Vol] 30 U/L <38 [facility] Microalbumin,Random Urineon 08-16-2024 MICROALBUMIN,UR < 12.0 Normal NO RANGE EST. [facility] Comment on above: Performed By: #### L 500.4050, L501.9520, L502.0500, L503.0106 #### [facility] [address] [place], [place], [address] Potassium measurement (mass/ volume)Ordered By: Baldomero Yen on 08-16-2024 Potassium (Unsp spec) [Mass/Vol] 4.1 mmol/L 3.3-5.1 [facility] Serum creatinine measurement (mass/volume)Ordered By: Baldomero Yen on 08-16-2024 Creatinine [Mass/Vol] 0.82 mg/dL 0.70-1.20 [facility] Serum globulin measurementOr dered By: Baldomero Yen on 08-16-2024 Globulin (S) [Mass/Vol] 2.3 g/dL 2.2-4.2 [facility] Serum glucose measurement (m ass/volume)Ordered By: Baldomero Yen on 08-16-2024 Glucose [Mass/Vol] 99 mg/dL 70-99 [facility] Serum or plasma alanine steele otransferase (ALT) measurementOrdered By: Baldomero Yen on 08-16-2024 ALT [Catalytic activity/Vol] 34 U/L <47 [facility] Serum or plasma albumin chalino urement (mass/volume)Ordered By: Baldomero Yen on 08-16-2024 Albumin [Mass/Vol] 4.4 g/dL 3.4-4.8 [facility] Serum or plasma albumin/glob ulin mass ratioOrdered By: Baldomero Yen on 08-16-2024 Albumin/Globulin [Mass ratio] 1.9 {ratio} 0.9-2.4 [facility] Serum or plasma alkaline lacey sphatase measurementOrdered By: Baldomero Yen on 08-16-2024 ALP [Catalytic activity/Vol] 69 U/L 40-129 [facility] Serum or plasma calcium chalino urement (mass/volume)Ordered By: Baldomero Yen on 08-16-2024 Calcium [Mass/Vol] 9.5 mg/dL 7.6-11.0 [facility] Serum or plasma urea nitroge n measurement (mass/volume)Ordered By: Baldomero Yen on 08-16-2024 Urea nitrogen [Mass/Vol] 18 mg/dL 4-19 [facility] Sodium levelOrdered By: Sp Yen on 08-16-2024 Sodium [Moles/Vol] 142 mmol/L 133-145 [facility] TSH DL <= 0.005 mIU/L QnOrde red By: Baldomero Yen on 08-16-2024 TSH Qn 2.810 uIU/mL 0.300-4.200 [facility] Thyroid Stim Hormone (TSH)on 08-16-2024 TSH 2.810 uIU/mL Normal 0.300-4.200 [facility] Comment on above: Performed By: #### L 500.4050, L501.9520, L502.0500, L503.0106 #### [facility] [address] [place], [place], [id number] Total proteinOrdered By: Oswald Yen on 08-16-2024 Protein [Mass/Vol] 6.7 g/dL 5.9-8.4 [facility] Urine albumin measurement wi th detection limit of 20 mg/L or less (mass/volume)Ordered By: Baldomero Yen on 08-16-2024 Albumin DL <= 20 mg/L (U) [Mass/Vol] < 12.0 mg/L NO RANGE EST. [facility] Vitamin B12on 08-16-2024 Cobalamin (Vitamin B12) [Mass/Vol] 1251 pg/mL High 180-914 [facility] Comment on above: Performed By: #### L 500.4050, L501.9520, L502.0500, L503.0106 #### [facility] [address] [place], [address] Vitamin B12 ser/plasOrdered By: Baldomero Yen on 08-16-2024 Cobalamin (Vitamin B12) [Mass/Vol] 1251 pg/mL High 180-914 [facility] Comprehensive Metabolic Prof ilon 02-18-2024 Albumin [Mass/Vol] 3.8 g/dL Normal 3.2-5.0 [facility] Comment on above: Order Comment: Order Date: 02/18/24 Order Info: [id number] - CMP Order Info: [id number] - LIPID Order Info: [id number] - TSH Performed By: #### L 500.4100, L501.9520, L500.4050, L503.0105 #### [facility] [address] [place], [address] Albumin/Globulin [Mass ratio] 1.2 {ratio} Normal 0.9-2.4 [facility] Comment on above: Order Comment: Order Date: 02/18/24 Order Info: [id number] - CMP Order Info: [id number] - LIPID Order Info: [id number] - TSH Performed By: #### L 500.4100, L501.9520, L500.4050, L503.0105 #### [facility] [address] [place], [address] ALK P 72 U/L Normal 45-117 [facility] Comment on above: Order Comment: Order Date: 02/18/24 Order Info: [id number] - CMP Order Info: [id number] - LIPID Order Info: [id number] - TSH Performed By: #### L 500.4100, L501.9520, L500.4050, L503.0105 #### [facility] [address] [place], [address] ALT [Catalytic activity/Vol] 29 U/L Normal 16-61 [facility] Comment on above: Order Comment: Order Date: 02/18/24 Order Info: 785- - CMP Order Info: [id number] - LIPID Order Info: [id number] - TSH Performed By: #### L 500.4100, L501.9520, L500.4050, L503.0105 #### [facility] [address] [place], [address] AST [Catalytic activity/Vol] 19 U/L Normal 15-37 [facility] Comment on above: Order Comment: Order Date: 02/18/24 Order Info: 785- - CMP Order Info: - LIPID Order Info: [id number] - TSH Performed By: #### L 500.4100, L501.9520, L500.4050, L503.0105 #### [facility] [address] [place], [address] Bilirubin [Mass/Vol] 0.60 mg/dL Normal 0.20-1.00 [facility] Comment on above: Order Comment: Order Date: 02/18/24 Order Info: [id number] - CMP Order Info: - LIPID Order Info: [id number] - TSH Result Comment: For patients on eltrombopag therapy, use of Dimension Hustler TBIL is not recommended. Performed By: #### L 500.4100, L501.9520, L500.4050, L503.0105 #### [facility] [address] [place], [address] BUN/CRE 16.6 RATIO Normal 10-20 [facility] Comment on above: Order Comment: Order Date: 02/18/24 Order Info: [id number] - CMP Order Info: [id number] - LIPID Order Info: [id number] - TSH Performed By: #### L 500.4100, L501.9520, L500.4050, L503.0105 #### [facility] [address] [place], [address] CA,Total 9.1 mg/dL Normal 8.5-10.1 [facility] Comment on above: Order Comment: Order Date: 02/18/24 Order Info: [id number] - CMP Order Info: [id number] - LIPID Order Info: [id number] - TSH Performed By: #### L 500.4100, L501.9520, L500.4050, L503.0105 #### [facility] [address] [place], [address] Chloride [Moles/Vol] 108 mmol/L High 98-107 [facility] Comment on above: Order Comment: Order Date: 02/18/24 Order Info: 07- - CMP Order Info: [id number] - LIPID Order Info: [id number] - TSH Performed By: #### L 500.4100, L501.9520, L500.4050, L503.0105 #### [facility] [address] [place], [address] CO2 [Moles/Vol] 26.0 mmol/L Normal 21.0-32.0 [facility] Comment on above: Order Comment: Order Date: 02/18/24 Order Info: 0786 - CMP Order Info: [id number] - LIPID Order Info: [id number] - TSH Performed By: #### L 500.4100, L501.9520, L500.4050, L503.0105 #### [facility] [address] [place], [address] Creatinine [Mass/Vol] 0.90 mg/dL Normal 0.70-1.30 [facility] Comment on above: Order Comment: Order Date: 02/18/24 Order Info: [id number] - CMP Order Info: [id number] - LIPID Order Info: [id number] - TSH Result Comment: The validity of the calculated GFR GFRAA in patients over 70 years has not been determined. Clinical correlation is essential. Performed By: #### L 500.4100, L501.9520, L500.4050, L503.0105 #### [facility] [address] [place], [address] EST GFR - AA 103 mL/min Normal >60 [facility] Comment on above: Order Comment: Order Date: 02/18/24 Order Info: [id number] - CMP Order Info: - LIPID Order Info: [id number] - TSH Result Comment: Afri can British GFR Calc Performed By: #### L 500.4100, L501.9520, L500.4050, L503.0105 #### [facility] [address] [place], [address] GAP 6 Normal 5-15 [facility] Comment on above: Order Comment: Order Date: 02/18/24 Order Info: [id number] - CMP Order Info: - LIPID Order Info: [id number] - TSH Performed By: #### L 500.4100, L501.9520, L500.4050, L503.0105 #### [facility] [address] [place], [address] GFR/1.73 sq M.predicted among non-blacks MDRD (S/P/Bld) [Vol rate/Area] 85 mL/min/{1.73_m2} Normal >60 [facility] Comment on above: Order Comment: Order Date: 02/18/24 Order Info: [id number] - CMP Order Info: - LIPID Order Info: [id number] - TSH Result Comment: Non- GFR Calc Performed By: #### L 500.4100, L501.9520, L500.4050, L503.0105 #### [facility] [address] [place], [address] Globulin (S) [Mass/Vol] 3.1 g/dL Normal 2.2-4.2 [facility] Comment on above: Order Comment: Order Date: 02/18/24 Order Info: [id number] - CMP Order Info: - LIPID Order Info: [id number] - TSH Performed By: #### L 500.4100, L501.9520, L500.4050, L503.0105 #### [facility] [address] [place], [address] Glucose [Mass/Vol] 98 mg/dL Normal 74-106 [facility] Comment on above: Order Comment: Order Date: 02/18/24 Order Info: 07- - CMP Order Info: - LIPID Order Info: [id number] - TSH Performed By: #### L 500.4100, L501.9520, L500.4050, L503.0105 #### [facility] [address] [place], [address] Potassium [Moles/Vol] 4.1 mmol/L Normal 3.5-5.1 [facility] Comment on above: Order Comment: Order Date: 02/18/24 Order Info: [id number] - CMP Order Info: - LIPID Order Info: [id number] - TSH Performed By: #### L 500.4100, L501.9520, L500.4050, L503.0105 #### [facility] [address] [place], [address] Sodium [Moles/Vol] 140 mmol/L Normal 136-145 [facility] Comment on above: Order Comment: Order Date: 02/18/24 Order Info: 07 - CMP Order Info: - LIPID Order Info: [id number] - TSH Performed By: #### L 500.4100, L501.9520, L500.4050, L503.0105 #### [facility] [address] [place], [address] T PROT 6.9 g/dL Normal 6.4-8.2 [facility] Comment on above: Order Comment: Order Date: 02/18/24 Order Info: [id number] - CMP Order Info: - LIPID Order Info: [id number] - TSH Performed By: #### L 500.4100, L501.9520, L500.4050, L503.0105 #### [facility] [address] [place], [address] Urea nitrogen [Mass/Vol] 15 mg/dL Normal 7-18 [facility] Comment on above: Order Comment: Order Date: 02/18/24 Order Info: [id number] - CMP Order Info: [id number] - LIPID Order Info: [id number] - TSH Performed By: #### L 500.4100, L501.9520, L500.4050, L503.0105 #### [facility] [address] [place], [address] Lipid Profileon 02-18-2024 Cholesterol [Mass/Vol] 198 mg/dL Normal 200 [facility] Comment on above: Order Comment: Order Date: 02/18/24 Order Info: 785- - CMP Order Info: - LIPID Order Info: 3 - TSH Result Comment: <200 mg/dL Desirable 200-240 mg/dL Borderline >240 mg/dL High Risk Performed By: #### L 500.4100, L501.9520, L500.4050, L503.0105 #### [facility] [address] [place], [address] Cholesterol in HDL [Mass/Vol] 47 mg/dL Normal [facility] Comment on above: Order Comment: Order Date: 02/18/24 Order Info: [id number] - CMP Order Info: [id number] - LIPID Order Info: 6-3 - TSH Result Comment: The drugs N-Acetylcysteine and Metamizole may falsely depress this assay. Reference Range HDL <40 mg/dL Low HDL Cholesterol HDL >or= 60 mg/dL High HDL Cholesterol Performed By: #### L 500.4100, L501.9520, L500.4050, L503.0105 #### [facility] [address] [place], [address] Cholesterol in LDL [Mass/Vol] 117 mg/dL Normal 0-130 [facility] Comment on above: Order Comment: Order Date: 02/18/24 Order Info: [id number] - CMP Order Info: - LIPID Order Info: [id number] - TSH Performed By: #### L 500.4100, L501.9520, L500.4050, L503.0105 #### [facility] [address] [place], [address] Cholesterol in VLDL [Mass/Vol] 34 mg/dL Normal 5-40 [facility] Comment on above: Order Comment: Order Date: 02/18/24 Order Info: [id number] - CMP Order Info: - LIPID Order Info: [id number] - TSH Performed By: #### L 500.4100, L501.9520, L500.4050, L503.0105 #### [facility] [address] [place], [address] Triglyceride [Mass/Vol] 172 mg/dL Normal [facility] Comment on above: Order Comment: Order Date: 02/18/24 Order Info: [id number] - CMP Order Info: - LIPID Order Info: [id number] - TSH Result Comment: The drugs N-Acetylcysteine and Metamizole may falsely depress this assay. Serum Triglycerides Reference Interval Normal <150 mg/dL Borderline high 150 - 199 mg/dL High 200 - 499 mg/dL Very High > or = 500 mg/dL Performed By: #### L 500.4100, L501.9520, L500.4050, L503.0105 #### [facility] [address] [place], [address] Thyroid Stim Hormone (TSH)on 02-18-2024 TSH 3.100 uIU/mL Normal 0.358-3.740 [facility] Comment on above: Order Comment: Order Date: 02/18/24 Order Info: 0786 - CMP Order Info: [id number] - LIPID Order Info: 3 - TSH Performed By: #### L 500.4100, L501.9520, L500.4050, L503.0105 #### [facility] [address] [place], [address] Vitamin B12on 02-18-2024 Cobalamin (Vitamin B12) [Mass/Vol] 1528 pg/mL High 211-911 [facility] Comment on above: Order Comment: Order Date: 02/18/24 Order Info: [id number] - B12 Performed By: #### L 500.4100, L501.9520, L500.4050, L503.0105 #### [facility] [address] [place], [address] Cardiology Visit Reporton Cardiology Visit Report [facility] [address] [place] [address] OFFICE VISIT Date of Service: 01/25/24 MR#: [id number] Acct: [id number] Name: BUBBA JASMINE Rep #: [id number] : 1940 Provider: GALEN Sibley Age/Sex: 83/M [place] [facility] [place] Status: Signed HPI HPI History of Present Illness Details: Bubba Jasmine is an 83-year-old white male who presents today for outpatient cardiovascular follow- up of his history of CAD-none angiographically significant and hyperlipidemia. From a cardiac standpoint, patient is doing well. He does not have any chest discomfort/heaviness /tightness. His exercise tolerance is stable for his age. He does not have any worsening symptoms of shortness of breath. He denies any PND. He does not have any orthopnea. He does not have any symptoms of congestive heart failure. He does not have any palpitations that he is aware of. He does not have any lightheadedness or dizziness. He does not have any near-syncope or syncope. He does not have any lower extremity edema. He does not have any symptoms of claudication. He does have numbness in his right leg. Intake Vital Signs 01/16/23 09:07 01/25/24 08:36 01/25/24 09:04 Height 5 ft 10 in 5 ft 10 in Weight: 230 lb BMI 33.0 BP 143/69 H 130/60 H Blood Pressure Location Lt brachial Position Sitting Respiration 18 Pulse 57 L Pulse Source Monitor Intake Visit Reasons: 1 Y FU/PREV PFM Senior Program Planner Required: No Is patient in pain?: No Allergies Qidtjdj-VJX-McD Reductase Inhibitor (Vzsqbsa-Ind-Tpc Reductase Inhibitor) Adverse Reaction (Severe, Verified 01/25/24 08:37) Intolerence, Myalgias Medications ???Medication ???Instructions ???Recorded ???Confirmed ???Type lactobacillus combination no.8 3 3,000 mmu cells PO QDAY 08/12/17 01/25/24 History billion cell capsule (Adult Probiotic) omega-3 fatty acids 1,000 mg 1,000 mg PO QDAY 08/12/17 01/25/24 History capsule (Fish Oil Concentrate) vit C 150 mg-vit E 30 unit-lutein 1 cap PO BID 08/12/17 01/25/24 History 5 nu-xhvmmtft-rtzqp 3 150 mg capsule (Ocuvite) cholecalciferol (vitamin D3) 25 2,000 unit PO BID 10/30/17 01/25/24 History mcg (1,000 unit) capsule aspirin 81 mg tablet,delayed 162 mg PO QDAY 12/27/18 01/25/24 History release levothyroxine 50 mcg tablet 50 mcg PO DAILY 12/27/18 01/25/24 History donepezil 5 mg tablet 5 mg PO DAILY 09/27/19 01/25/24 History ascorbic acid (vitamin C) 1,000 mg 1 g PO QDAY PRN 12/26/19 01/25/24 History tablet zinc gluconate 50 mg tablet 50 mg PO DAILY 01/16/23 01/25/24 History Have you fallen in the past year?: No PFSH Medical History Dilated aortic root Nonrheumatic aortic sclerosis YAZMIN (obstructive sleep apnea) Arthritis Diverticulitis GERD (gastroesophageal reflux disease) Hyperlipidemia Atherosclerotic heart disease of [place] coronary artery without angina pectoris Surgical History History of knee replacement procedure of left knee History of knee replacement procedure of right knee History of cataract surgery History of hernia repair History of cholecystectomy Family History Father CHF (congestive heart failure) Mother CAD (coronary artery disease) Sister Hypertension Social History Smoking Status: Never smoker alcohol intake: never ROS Const Const: Negative for fatigue, weakness, fever(s) or headache(s) Eyes Eyes: Negative for blind spots, loss of peripheral vision or transient loss of vision ENT ENT: Negative for headache(s), dizziness, tinnitus, Nosebleed/epistaxis or balance problems Cardio Chest Pain: No Palpitations: No Edema: None Muscle aches with walking: None Resp Respiratory: Negative for SOB with activity, SOB at rest, SOB orthopnea SOB lying down or Cough GI GI: Negative nausea, vomiting, heartburn or vomiting blood/hematemesis : Negative for hematuria Musc Musc: Negative for muscle aches/ myalgia (numbness in right leg), muscle weakness, joint pain or balance problems Neuro Neuro: Negative for dizziness, lightheadedness, near syncope, syncope, orthostatic symptoms, headache(s) or weakness Mario Hematologic/Lymphati c: Negative for easy bleeding Endo Endo: Negative for fatigue Cardiology Exam Const Appearance: cooperative, healthy appearing, comfortable, no acute distress, well developed and well groomed Nutritional Appearance: overweight Orientation: alert, awake and oriented x3 Head Head: normal to inspection, normocephalic and atraumatic Ears: hearin (more content not included)... Normal [facility] Basophil percentageOrdered B y: Dr. Yen on 04-23-2022 Bilirubin [Mass/Vol] 0.80 mg/dL 0.20-1.00 [facility] Comment on above: For patients on eltr ombopag therapy, use of Dimension Hustler TBIL is not recommended. Chloride [Moles/Vol] 104 mmol/L 98-107 [facility] Cholesterol [Mass/Vol] 183 mg/dL <200 [facility] Comment on above: <200 mg/dL Desirable 200-240 mg/dL Borderline >240 mg/dL High Risk Glucose [Mass/Vol] 98 mg/dL 74-106 [facility] Potassium [Moles/Vol] 4.2 mmol/L 3.5-5.1 [facility] [place] Protein [Mass/Vol] 7.1 g/dL 6.4-8.2 [facility] Sodium [Moles/Vol] 141 mmol/L 136-145 [facility] Triglyceride [Mass/Vol] 169 mg/dL <199 [facility] Comment on above: The drugs N-Acetylcy steine and Metamizole may falsely depress this assay.Serum Triglycerides Reference Interval Normal <150 mg/dL Borderline high 150 - 199 mg/dL High 200 - 499 mg/dL Very High > or = 500 mg/dL Laboratory - Chemistry and C hemistry - challengeOrdered By: Dr. Yen on 04-23-2022 ALP [Catalytic activity/Vol] 67 U/L 45-117 [facility] ALT [Catalytic activity/Vol] 34 U/L 16-61 [facility] CO2 [Moles/Vol] 29.0 mmol/L 21.0-32.0 [facility] Cobalamin (Vitamin B12) [Mass/Vol] 493 pg/mL 211-911 [facility] Globulin (S) [Mass/Vol] 3.3 g/dL 2.2-4.2 [facility] Urea nitrogen/Creatinine [Mass ratio] 18.1 mg/mg 10-20 [facility] No Panel InformationOrdered By: Dr. Yen on 04-23-2022 Estimated GFR (MDRD) Amer 106 mL/min >60 [facility] Comment on above: GFR Calc Estimated GFR (MDRD) Non-Af Amer 88 mL/min >60 [facility] Comment on above: Non- GFR Calc Thyroid Stimulating Hormone (TSH) 2.09 uIU/mL 0.358-3.74 [facility] Vitamin D 25-Hydroxy 59.4 ng/mL [facility] Comment on above: Vitamin D 25(OH) Sta tus Range Deficiency <20 ng/mL (50nmol/L) Insufficiency 20 - 30 ng/mL (50 - 75 nmol/L) Sufficiency 30 - 100 ng/mL (75 - 250 nmol/L) Toxicity >100 ng/mL (>250 nmol/L) Serum or plasma albumin chalino urement (mass/volume)Ordered By: Dr. Yen on 04-23-2022 Albumin [Mass/Vol] 3.8 g/dL 3.2-5.0 [facility] Serum or plasma albumin/glob ulin mass ratioOrdered By: Dr. Yen on 04-23-2022 Albumin/Globulin [Mass ratio] 1.2 {ratio} 0.9-2.4 [facility] Serum or plasma calcium chalino urement (mass/volume)Ordered By: Dr. Yen on 04-23-2022 Calcium [Mass/Vol] 8.9 mg/dL 8.5-10.1 [facility] Serum or plasma cholesterol in HDL measurement (mass/volume)Ordered By: Dr. Yen on 04-23-2022 Cholesterol in HDL [Mass/Vol] 45 mg/dL >40 [facility] Comment on above: The drugs N-Acetylcy steine and Metamizole may falsely depress this assay. Reference Range HDL <40 mg/dL Low HDL Cholesterol HDL >or= 60 mg/dL High HDL Cholesterol Serum or plasma cholesterol in VLDL measurement (mass/volume)Ordered By: Dr. Yen on 04-23-2022 Cholesterol in VLDL [Mass/Vol] 34 mg/dL 5-40 [facility] Serum or plasma creatinine m easurement (mass/volume)Ordered By: Dr. Yen on 04-23-2022 Creatinine [Mass/Vol] 0.88 mg/dL 0.70-1.30 [facility] [place] Comment on above: The validity of the calculated GFR & GFRAA in patients over 70 years has not been determined. Clinical correlation is essential. Serum or plasma low density lipoprotein (LDL) cholesterol measurement (mass/volume)Ordered By: Dr. Yen on 04-23-2022 Cholesterol in LDL [Mass/Vol] 104 mg/dL 0-130 [facility] Serum or plasma urea nitroge n measurement (mass/volume)Ordered By: Dr. Yen on 04-23-2022 Urea nitrogen [Mass/Vol] 16 mg/dL 7-18 [facility] Thin prep Papanicolaou smear with manual screeningOrdered By: Dr. Yen on 04-23-2022 Thin prep Papanicolaou smear with manual screening 26 U/L 15-37 [facility] Thin prep Papanicolaou smear with manual screening 8 5-15 [facility] Whole blood hemoglobin A1c/t otal hemoglobin ratio (mass fraction)Ordered By: Dr. Yen on 04-23-2022 HbA1c (Bld) [Mass fraction] 5.7 % 3.8-5.6 [facility] Comment on above: Normal < 5.7 % Predi abetic 5.7 - 6.4 % Diabetic >or= 6.5 % Please note range changes. Basophil percentageon 2021 Bilirubin [Mass/Vol] 0.50 mg/dL 0.20-1.00 [facility] Work Phone: Comment on above: For patients on eltr ombopag therapy, use of Dimension Hustler TBIL is not recommended. Cholesterol [Mass/Vol] 182 mg/dL <200 [facility] Work Phone: Comment on above: <200 mg/dL Desirable 200-240 mg/dL Borderline >240 mg/dL High Risk Protein [Mass/Vol] 7.2 g/dL 6.4-8.2 [facility] Work Phone: [phone] Triglyceride [Mass/Vol] 129 mg/dL <199 [facility] Work Phone: [phone] Comment on above: The drugs N-Acetylcy steine and Metamizole may falsely depress this assay.Serum Triglycerides Reference Interval Normal <150 mg/dL Borderline high 150 - 199 mg/dL High 200 - 499 mg/dL Very High > or = 500 mg/dL Direct bilirubinon 2 Bilirubin.direct [Mass/Vol] 0.14 mg/dL 0.00-0.30 [facility] Work Phone: Laboratory - Chemistry and C hemistry - challengeon 12-19-2021 ALP [Catalytic activity/Vol] 68 U/L 45-117 [facility] Work Phone: [phone] ALT [Catalytic activity/Vol] 37 U/L 16-61 [facility] Work Phone: [phone] Globulin (S) [Mass/Vol] 3.5 g/dL 2.2-4.2 [facility] Work Phone: Serum or plasma albumin chalino urement (mass/volume)on 12-19-2021 Albumin [Mass/Vol] 3.7 g/dL 3.2-5.0 [facility] Work Phone: Serum or plasma cholesterol in HDL measurement (mass/volume)on 12-19-2021 Cholesterol in HDL [Mass/Vol] 45 mg/dL >40 [facility] Work Phone: Comment on above: The drugs N-Acetylcy steine and Metamizole may falsely depress this assay. Reference Range HDL <40 mg/dL Low HDL Cholesterol HDL >or= 60 mg/dL High HDL Cholesterol Serum or plasma cholesterol in VLDL measurement (mass/volume)on 12-19-2021 Cholesterol in VLDL [Mass/Vol] 26 mg/dL 5-40 [facility] Work Phone: Serum or plasma low density lipoprotein (LDL) cholesterol measurement (mass/volume)on 12-19-2021 Cholesterol in LDL [Mass/Vol] 111 mg/dL 0-130 [facility] Work Phone: Thin prep Papanicolaou smear with manual screeningon 12-19-2021 Thin prep Papanicolaou smear with manual screening 24 U/L 15-37 [facility] Work Phone: Office Visiton 08-18-2016 Dietary management education, guidance, and counseling (procedure) yes Invalid Interpretation Code [facility] Work Phone: [phone] Documentation of current medications (procedure) Done Invalid Interpretation Code [facility] [employer] Phone: [phone] Replaced Document: Salo E CG Observationson 08-18-2016 EKG QRS axis -51 deg [employer] Work Phone: [phone] electrocardiogram interpretation Sinus Bradycardia -First degree A-V block Shaun = 226-Left axis -anterior fascicular block. ABNORMAL Invalid Interpretation Code [facility] Work Phone: [phone] GE use only - for [employer] import when terms are not otherwise specified 425 ms Invalid Interpretation Code [facility] Work Phone: [phone] Interpretation Sinus Bradycardia -First degree A-V block Shaun = 226-Left axis -anterior fascicular block. ABNORMAL [employer] Work Phone: [phone] P [place] 28 deg [facility] Work Phone: [phone] P wave axis, electrocardiogram 28 deg Invalid Interpretation Code [employer] Work Phone: [phone] VT Interval 226 ms [employer] Work Phone: [phone] VT interval, electrocardiogram 226 ms Invalid Interpretation Code [employer] Work Phone: [phone] Pulse (Heart Rate) 56 /min Invalid Interpretation Code [employer] Work Phone: [phone] QRS axis, electrocardiogram -51 deg Invalid Interpretation Code [employer] Work Phone: [phone] QRS Duration 122 ms [employer] Work Phone: [phone] QRS duration, electrocardiogram 122 ms Invalid Interpretation Code [employer] Work Phone: [phone] QT Interval new path ms [employer] Work Phone: [phone] QT interval, electrocardiogram new path ms Invalid Interpretation Code [employer] Work Phone: [phone] QTc [place] 425 ms [employer] Work Phone: [phone] T [place] -1 deg [employer] Work Phone: [phone] T wave axis, electrocardiogram -1 deg Invalid Interpretation Code [employer] Work Phone: [phone] Clinical Lists Update: Prelo tire layer 08-15-2016 Left ventricular Ejection fraction 63 % Invalid Interpretation Code [employer] Work Phone: [phone] Clinical Lists Update: Prelo tire layer 04-01-2016 Cholesterol [Mass/Vol] 170 mg/dL Invalid Interpretation Code [employer] Work Phone: [phone] Cholesterol in HDL [Mass/Vol] 47 mg/dL Invalid Interpretation Code [employer] Work Phone: [phone] Cholesterol in LDL [Mass/Vol] 86 mg/dL Invalid Interpretation Code [employer] Work Phone: [phone] Triglyceride [Mass/Vol] 187 mg/dL Invalid Interpretation Code [employer] Work Phone: [phone] Lab Report: Lipid Profileon 08-02-2015 Lipoprotein.pre-beta [Mass/Vol] 30 mg/dL Invalid Interpretation Code 5-40 [employer] Work Phone: [phone] Lab Report: Liver Profileon 08-02-2015 Albumin [Mass/Vol] 3.9 g/dL Invalid Interpretation Code 3.4-5.0 [employer] Work Phone: [phone] Alkaline phosphatase (ALP) 67 U/L Invalid Interpretation Code 50-136 [employer] Work Phone: [phone] ALP (Bld) [Catalytic activity/Vol] 67 U/L 50-136 [employer] Work Phone: [phone] ALT [Catalytic activity/Vol] 28 U/L Invalid Interpretation Code 12-78 [employer] Work Phone: [phone] AST [Catalytic activity/Vol] 21 U/L Invalid Interpretation Code 15-37 [employer] Work Phone: [phone] Bilirubin [Mass/Vol] 0.70 mg/dL Invalid Interpretation Code 0.20-1.00 [employer] Work Phone: [phone] Bilirubin.direct [Mass/Vol] 0.15 mg/dL Invalid Interpretation Code 0.00-0.30 [employer] Work Phone: [phone] Globulin 3.1 g/dL Invalid Interpretation Code 2.3-3.5 [employer] Work Phone: [phone] Globulin (S) [Mass/Vol] 3.1 g/dL 2.3-3.5 [employer] Work Phone: [phone] Protein [Mass/Vol] 7.0 g/dL Invalid Interpretation Code 6.4-8.2 [employer] Work Phone: [phone] Clinical Lists Updateon 01-14 Calcium [Mass/Vol] 8.8 mg/dL Invalid Interpretation Code [employer] Work Phone: [phone] Chloride [Moles/Vol] 108 mmol/L Invalid Interpretation Code [employer] Work Phone: [phone] CO2 30.0 mmol/L Invalid Interpretation Code [employer] Work Phone: [phone] CO2 (BldV) [Partial pressure] 30.0 mmol/L [employer] Work Phone: [phone] Creatinine [Mass/Vol] 0.87 mg/dL Invalid Interpretation Code [employer] Work Phone: [phone] Potassium [Moles/Vol] 3.8 mmol/L Invalid Interpretation Code [facility] Work Phone: [phone] Sodium [Moles/Vol] 143 mmol/L Invalid Interpretation Code [facility] Work Phone: [phone] Urea nitrogen [Mass/Vol] 11 mg/dL Invalid Interpretation Code [facility] Work Phone: [phone] Office Visiton 07-24-2014 cardiac risk group C Invalid Interpretation Code [facility] Work Phone: [phone] General cardiovascular disease 10Y risk [#] [place] N/A Invalid Interpretation Code [facility] Work Phone: [phone] Tobacco smoking status NHIS Never smoker [facility] Work Phone: [phone] Tobacco use CPHS Never smoker Invalid Interpretation Code [facility] Work Phone: [phone] Lab Report: CBCon 12-26-2013 Erythrocyte distribution width (RBC) [Ratio] 46.8 fl High 35.1-43.9 [facility] Work Phone: [phone] Erythrocytes (RBC) 4.53 10*6/uL Low 4.6-6.[address] [facility] Work Phone: [phone] Hematocrit (Bld) [Volume fraction] 43.9 % Normal 40-54 [facility] Work Phone: [phone] Hematocrit (HCT) 43.9 % Normal 40-54 [facility] Work Phone: [phone] Hemoglobin (Bld) [Mass/Vol] 15.2 g/dL Normal 13.0-16.5 [facility] Work Phone: [phone] MCH 33.6 pg High 27.0-32.0 [facility] Work Phone: [phone] MCH (RBC) [Entitic mass] 33.6 pg High 27.0-32.0 [facility] Work Phone: [phone] MCHC 34.6 G/GL Normal 32-36 [facility] Work Phone: [phone] MCHC (RBC) [Mass/Vol] 34.6 G/GL Normal 32-36 [facility] Work Phone: [phone] MCV 96.9 fL High 80-94 [facility] Work Phone: [phone] MCV (RBC) [Entitic vol] 96.9 fL High 80-94 [facility] Work Phone: [phone] Platelet mean volume (Bld) [Entitic vol] 10.6 fL Normal 6.2-12.0 [facility] Work [phone] Platelets 201 10*3/mm3 Normal 150-450 [facility] Work Phone: [phone] Platelets (Bld) [#/Vol] 201 10*3/mm3 Normal 150-450 [facility] Work Phone: [phone] PMV by Lauren 10.6 fL Normal 6.2-12.0 [facility] Work Phone: [phone] RBC (Bld) [#/Vol] 4.53 10*6/uL Low 4.6-6.2 [facility] Work Phone: [phone] WBC (Bld) [#/Vol] 4.1 10*3/uL Low 4.4-11.0 [facility] Work Phone: [phone] WBC (Leukocytes) 4.1 10*3/uL Low 4.4-11.0 [facility] Work Phone: [phone]) Lab Report: CMPon 12-26-2013 Albumin/Globulin [Mass ratio] 1.2 {ratio} Normal 0.9-2.4 [facility] Work Phone: [phone] Anion gap 5 mmol/L Normal 5-15 [facility] Work [phone] Anion gap [Moles/Vol] 5 mmol/L Normal 5-15 [facility] Work Phone: [phone] Glucose 88 mg/dL Normal 70-110 [facility] Work Phone: [phone] Glucose [Mass/Vol] 88 mg/dL Normal 70-110 [facility] Work Phone: [phone] Urea nitrogen/Creatinine [Mass ratio] 17.0 RATIO Normal 10-20 [facility] Work Phone: [phone] Lab Report: URICon 4 Urate [Mass/Vol] 7.0 mg/dL Normal 3.5-7.2 [facility] Work Phone: [phone]) Lab Report: VITDon 4 vitamin D 25-hydroxy, serum 17.6 ng/mL Normal [facility] Work Phone: [phone] VITD 17.6 ng/mL Normal [facility] Work Phone: [phone] Clinical Lists Update: Prelo tire layer 09-20-2013 TSH Qn 3.38 u[iU]/mL Invalid Interpretation Code [facility] Work Phone: [phone] Replaced Document: Salo LOPEZ Observationson 06-28-2012 EKG QRS axis -57 deg [facility] Work Phone: [phone] Interpretation Sinus Rhythm -Nonspecific QRS widening and anterior fascicular block . ABNORMAL [facility] Work Phone: [phone] P [place] 26 deg [facility] Work Phone: [phone] VT Interval 206 ms [facility] Work Phone: [phone] Pulse (Heart Rate) 399 ms Invalid Interpretation Code [facility] Work Phone: [phone] QRS Duration 120 ms [facility] Work Phone: [phone] QT Interval new path ms [facility] Work Phone: [phone] T [place] 31 deg [facility] Work Phone: [phone] Vital Signs Date Time Vital Sign Value Performing Clinician Jeannine potter 10-07-2024 12:16-0400 Body height 177.[address] Baldomero Yen MD Work Phone: [facility] 10-07-2024 12:16-0400 Body mass index (BMI) [Ratio] 32.3 kg/m2 Dr. Baldomero Yen MD Work Phone: [facility] 10-07-2024 12:16-0400 Body temperature 98.4 [degF] Dr. Baldomero Yen MD Work Phone: [facility] 10-07-2024 12:16-0400 Body weight 102.[address] Baldomero Yen MD Work Phone: [facility] 10-07-2024 12:16-0400 Diastolic blood pressure 58 mm[Hg] Dr. Baldomero Yen MD Work Phone: [facility] 10-07-2024 12:16-0400 Heart rate 60 /min Dr. Baldomero Yen MD Work Phone: [facility] 10-07-2024 12:16-0400 Respiratory rate 16 /min Dr. Baldomero Yen MD Work Phone: [facility] 10-07-2024 12:16-0400 SaO2% (BldA) [Mass fraction] 94 % Dr. Baldomero Yen MD Work Phone: [facility] 10-07-2024 12:16-0400 Systolic blood pressure 138 mm[Hg] Dr. Baldomero Yen MD Work Phone: [facility] 12-18-2021 10:39-0400 Body height 177.[address] Michael Yen Work Phone: [facility] Work Phone: 12-18-2021 10:39-0400 Body mass index (BMI) [Ratio] 32.3 kg/m2 Dr. Michael Yen Work Phone: [facility] Work Phone: 12-18-2021 10:39-0400 Body weight 102.[address] Michael Yen Work Phone: [facility] Work Phone: 12-18-2021 10:39-0400 Diastolic blood pressure 62 mm[Hg] Dr. Michael Yen Work Phone: [facility] Work Phone: 12-18-2021 10:39-0400 Heart rate 52 /min Dr. Michael Yen Work Phone: [facility] Work Phone: 12-18-2021 10:39-0400 Respiratory rate 16 /min Dr. Michael Yen Work Phone: [facility] Work Phone: 12-18-2021 10:39-0400 Systolic blood pressure 126 mm[Hg] Dr. Michael Yen Work Phone: [facility] Work Phone: 08-18-2016 09:31-0400 Heart rate 56 /min Richar Treadwell MD [facility] Work Phone: 08-18-2016 09:16-0400 BMI (Body Mass Index) 32.21 kg/m2 Richar Treadwell MD [facility] Work Phone: 08-18-2016 09:16-0400 Body weight 104.78 kg Richar Treadwell MD [facility] Work Phone: 08-18-2016 09:16-0400 BP Diastolic 60 mm[Hg] Richar Treadwell MD [facility] Work Phone: 08-18-2016 09:16-0400 BP Systolic 108 mm[Hg] Richar Treadwell MD [facility] Work Phone: 08-18-2016 09:16-0400 Pulse (Heart Rate) 60 /min [facility] Work Phone: 08-18-2016 09:16-0400 Respiratory Rate 16 /min Richar Treadwell MD [facility] Work Phone: 08-18-2016 09:16-0400 Weight 104.78 kg Laney Sánchez [facility] Work Phone: 07-30-2015 09:28-0400 BMI (Body Mass Index) 33.19 kg/m2 [facility] Work Phone: 07-30-2015 09:28-0400 Body weight 107.96 kg Leah Sibley [facility] Work Phone: 07-30-2015 09:28-0400 BP Diastolic 60 mm[Hg] Harumi DeFinis [facility] Work Phone: 07-30-2015 09:28-0400 BP Systolic 110 mm[Hg] Harumi DeFinis [facility] Work Phone: 07-30-2015 09:28-0400 BSA (Body Surface Area) 2.27 m2 Harumi DeFinis [facility] Work Phone: 07-30-2015 09:28-0400 Pulse (Heart Rate) 56 /min Harumi DeFinis [facility] Work Phone: 07-30-2015 09:28-0400 Respiratory Rate 12 /min Harumi DeFinis [facility] Work Phone: 06-28-2012 09:17-0400 Heart rate 399 ms Harumi DeFinis [facility] Work Phone: 06-28-2012 09:17-0400 Heart rate 71 /min Harumi DeFinis [facility] Work Phone: 06-30-2011 10:16-0400 Height 180.34 cm Harumi DeFinis [facility] Work Phone: Encounters Encounter Date Encounter Type Care Provider Facility Start: 10-07-2024 End: 10-07-2024 Patient encounter procedure Girish Pink [facility] Work Phone: Start: 10-07-2024 End: 10-07-[address] Baldomero Yen MD Work Phone: [facility] Start: 08-24-2024 End: 08-24-[address] Baldomero Yen MD Work Phone: [facility] Work Phone: Start: 08-24-2024 End: 08-24-[address] Baldomero Yen MD -[facility] Work Phone: Start: 08-24-2024 End: 08-24-2024 ambulatory Baldomero Yen Facility:[facility] Start: 08-19-2024 Encounter for genera l adult medical examination without abnormal findings Baldomero Yen [facility] Start: 08-16-2024 End: 08-16-[address] Baldomero Yen MD Work Phone: [facility] Work Phone: Start: 08-16-2024 End: 08-16-[address] Baldomero Yen MD -Laboratory [facility] Start: 08-16-2024 End: 08-16-2024 ambulatory Baldomero Yen Facility:[facility] Start: 02-18-2024 End: 02-18-2024 ambulatory Baldomero Yen Facility:[facility] Start: 01-25-2024 End: 01-25-2024 ambulatory Baldomero Yen [place] Start: 07-15-2022 End: 07-15-2022 ambulatory [facility] Work Phone: Start: 07-15-2022 End: 07-15-2022 [facility] Start: 04-23-2022 End: 04-23-[address] Michael Yne Work Phone: [facility] Work Phone: Start: 04-23-2022 End: 04-23-[address] Michael Yen Work Phone: [facility] Start: 01-08-2022 Non-patient / Non-visit Dr. Jalyn Yen Work Phone: [facility] Start: 01-08-2022 End: 01-08-[address] Michael Yen Work Phone: [facility] Work Phone: Start: 01-08-2022 End: 01-08-[address] Michael Yen Work Phone: [facility] Start: 12-19-2021 End: 12-19-[address] Michael Yen Work Phone: [facility] Work Phone: Start: 12-19-2021 End: 12-19-[address] Michael Yen Work Phone: [facility] Start: 12-18-2021 End: 12-18-[address] Michael Yen Work Phone: [facility] Procedures Date Procedure Procedure Detail Performing Clinician Start: 08-24-[address] Baldomero eYn MD Work Phone: Start: 07-15-2022 Plain chest X-ray Start: 01-08-2022 Cardiovascular stress test using pharmacologic stress agent Dr. Michael Yen Work Phone: Start: 08-18-2016 End: 08-18-2016 Dietary management education, guidance, and counseling Richar Treadwell MD Start: 08-18-2016 End: 08-18-2016 Documentation of current medications Richar Treadwell MD Start: 08-18-2016 End: 08-18-2016 Electrocardiogram, complete Richar Treadwell MD Start: 08-18-2016 End: 08-18-2016 Follow Up Appt 1 year Richar Alejo Start: 08-18-2016 End: 08-18-2016 PFM Richar Treadwell MD Start: 08-18-2016 Preoperative cardiovascular examination Preoperative cardiovascular evaluation Richar Treadwell MD Start: 08-01-2015 End: 08-02-2015 *Hepatic Function Panel Richar Treadwell MD Start: 08-01-2015 End: 08-02-2015 Lipid panel [AGGREGATE] Richar rTeadwell MD Start: 07-30-2015 End: 07-30-2015 Dietary management education, guidance, and counseling Leah Sibley Start: 07-30-2015 End: 07-30-2015 Documentation of current medications Leah Sibley Start: 07-30-2015 End: 08-07-2015 *Hepatic Function Panel Richar Treadwell MD Start: 07-30-2015 End: 08-07-2015 Lipid panel [AGGREGATE] Richar Treadwell MD Start: 07-24-2014 End: 07-26-2014 *Hepatic Function Panel Richar Treadwell MD Start: 07-24-2014 End: 07-25-2014 Documentation of current medications Richar Treadwell MD Start: 07-24-2014 End: 07-24-2014 Follow Up Appt 6 months Richar Treadwell MD Start: 07-24-2014 End: 07-26-2014 Lipid panel [AGGREGATE] Richar Treadwell MD Start: 07-24-2014 End: 07-24-2014 PFM Richar Treadwell MD Start: 06-14-2014 End: 07-26-2014 *Hepatic Function Panel Richar Treadwell MD Start: 06-14-2014 End: 07-26-2014 Lipid panel [AGGREGATE] Richar Treadwell MD Start: 06-27-2013 End: 07-26-2014 *Hepatic Function Panel Richar Treadwell MD Start: 06-27-2013 End: 06-27-2013 Follow Up Appt 1 year Richar Alejo Start: 06-27-2013 End: 07-26-2014 Lipid panel [AGGREGATE] Richar Treadwell MD Start: 06-27-2013 End: 06-27-2013 PFM Richar Treadwell MD Start: 06-28-2012 End: 06-28-2012 Electrocardiogram, complete Richar Treadwell MD Start: 06-28-2012 End: 06-28-2012 Follow Up Appt 1 year Richar Alejo Start: 06-28-2012 End: 06-28-2012 Follow Up Appt Other Richar Treadwell MD Start: 06-28-2012 End: 06-28-2012 PFM Richar Treadwell MD Start: 01-05-2012 End: 06-28-2012 *Hepatic Function Panel Richar Treadwell MD Start: 01-05-2012 End: 06-28-2012 Lipid panel [AGGREGATE] Richar Treadwell MD Start: 07-01-2011 End: 07-07-2011 *Hepatic Function Panel Richar Treadwell MD Start: 07-01-2011 End: 07-07-2011 Lipid panel [AGGREGATE] Richar Treadwell MD Start: 06-30-2011 End: 06-30-2011 Electrocardiogram, complete Richar Treadwell MD Start: 06-30-2011 End: 06-30-2011 Follow Up Appt 1 year Richar Alejo Start: 06-30-2011 End: 06-28-2012 Nuclear stress test -exercise Richar Treadwell MD Plan of Treatment Date Care Activity Detail Author Start: 08-17-2017 End: 08-17-2017 Appointment Appointment [facility] Work Phone: Start: 08-18-2016 End: 08-18-2016 Appointment Appointment [facility] Work Phone: Start: 08-18-2016 End: 08-18-2016 Electrocardiogram, complete EKG (In office) [facility] Work Phone: Start: 08-18-2016 End: 08-18-2016 Follow Up Appt 1 year Follow Up Appt 1 year [facility] Work Phone: Start: 08-18-2016 End: 08-18-2016 PFM PFM [facility] Work Phone: Start: 08-01-2016 End: 08-07-2015 *Hepatic Function Panel *Hepatic Function Panel [facility] Work Phone: Start: 08-01-2016 End: 08-07-2015 Lipid panel [AGGREGATE] *Lipid Profile CC PCP [facility] Work Phone: Start: 08-01-2015 End: 08-02-2015 *Hepatic Function Panel *Hepatic Function Panel [facility] Work Phone: Start: 08-01-2015 End: 08-02-2015 Lipid panel [AGGREGATE] *Lipid Profile CC PCP [facility] Work Phone: Start: 07-30-2015 End: 08-07-2015 *Hepatic Function Panel *Hepatic Function Panel [facility] Work Phone: Start: 07-30-2015 End: 07-30-2015 Follow Up Appt 1 year Follow Up Appt 1 year [facility] Work Phone: Start: 07-30-2015 End: 08-07-2015 Lipid panel [AGGREGATE] *Lipid Profile CC PCP [facility] Work Phone: Start: 07-30-2015 End: 07-30-2015 PFM PFM [facility] Work Phone: Start: 07-24-2014 End: 07-26-2014 *Hepatic Function Panel *Hepatic Function Panel [facility] Work Phone: Start: 07-24-2014 End: 07-24-2014 Follow Up Appt 6 months Follow Up Appt 6 months [facility] Work Phone: Start: 07-24-2014 End: 07-26-2014 Lipid panel [AGGREGATE] *Lipid Profile CC PCP [facility] Work Phone: Start: 07-24-2014 End: 07-24-2014 PFM PFM [facility] Work Phone: Start: 06-14-2014 End: 07-26-2014 *Hepatic Function Panel *Hepatic Function Panel [facility] Work Phone: Start: 06-14-2014 End: 07-26-2014 Lipid panel [AGGREGATE] *Lipid Profile CC PCP [facility] Work Phone: Start: 06-27-2013 End: 06-30-2013 *Hepatic Function Panel *Hepatic Function Panel [facility] Work Phone: Start: 06-27-2013 End: 06-27-2013 Follow Up Appt 1 year Follow Up Appt 1 year [facility] Work Phone: Start: 06-27-2013 End: 06-30-2013 Lipid panel [AGGREGATE] *Lipid Profile CC PCP [facility] Work Phone: Start: 06-27-2013 End: 06-27-2013 PFM PFM [facility] Work Phone: Start: 06-28-2012 End: 06-28-2012 Electrocardiogram, complete EKG (In office) [facility] Work Phone: Start: 06-28-2012 End: 06-28-2012 Follow Up Appt 1 year Follow Up Appt 1 year [facility] Work Phone: Start: 06-28-2012 End: 06-28-2012 Follow Up Appt Other Follow Up Appt Other [facility] Work Phone: Start: 06-28-2012 End: 06-28-2012 PFM PFM [facility] Work Phone: Start: 01-05-2012 End: 06-28-2012 *Hepatic Function Panel *Hepatic Function Panel [facility] Work Phone: Start: 01-05-2012 End: 06-28-2012 Lipid panel [AGGREGATE] *Lipid Profile [facility] Work Phone: Start: 07-01-2011 End: 07-07-2011 *Hepatic Function Panel *Hepatic Function Panel [facility] Work Phone: Start: 07-01-2011 End: 07-07-2011 Lipid panel [AGGREGATE] *Lipid Profile [facility] Work Phone: Start: 06-30-2011 End: 06-30-2011 Electrocardiogram, complete EKG (In office) [facility] Work Phone: Start: 06-30-2011 End: 06-30-2011 Follow Up Appt 1 year Follow Up Appt 1 year [facility] Work Phone: Start: 06-30-2011 End: 06-30-2011 Nuclear stress test -exercise Nuclear stress test -exercise [facility] Work Phone: [place] Heart Views W str ess and W radionuclide IV [facility] Work Phone: Patient Education HYPERLIPIDEMIA , CHEST%20PAIN [facility] Work Phone: [place] Heart [facility] Work Phone: Payers Date Payer Category Payer Self-pay [id number] Private Health Insurance [id number] Unknown [id number] Unknown [id number] Unknown [id number] [id number] Unknown [id number] [id number] Unknown [id number] Social History Date Type Detail Facility Start: 12-18-2021 End: 12-18-2021 Tobacco smoking status NHIS Unknown if ever smoked [facility] Start: 1940 Sex Assigned At Male [facility] Start: 01-16-2023 Tobacco smoking stat us NHIS Never smoked tobacco (finding) [facility] Progress note 10-07-2024 Note Date & Type Note Facility 10-07-2024 Progress note [facility] Progress note 10-07-2024 Note Date & Type Note Facility 10-07-2024 Progress note Note Date/Time October 07, 2024 12:28pm [facility] [address], [address] [place] [address] OFFICE VISIT Date of Service: 10/07/24 MR#: [id number] Acct: [id number] Name: BUBBA JASMINE Rep #: [id number] : 1940 Provider: GALEN Sauceda Age/Sex: 84/M Location: [facility] Status: Signed Intake Vital Signs 01/25/24 08:36 10/07/24 12:16 Height 5 ft 10 in 5 ft 10 in Weight: 225 lb BMI 32.3 BP 138/58 H Blood Pressure Location Lt brachial Position Sitting Respiration 16 Pulse 60 Pulse Source Monitor Temp 98.4 F Temp Source Oral Pulse Oximetry (%) 94 Oxygen Delivery Method room air Intake Visit Reasons: TICK BITE R ARM Chief Complaint: Concern for Tick Bite Senior Program Planner Required: No Accompanied by: Is patient in pain?: No Allergies Vyvkxci-BBE-LrI Reductase Inhibitor (Pbykrjl-Sno-Pfk Reductase Inhibitor) Adverse Reaction (Severe, Verified 10/07/24 12:06) Intolerence, Myalgias Medications ?Medication ?Instructions ?Recorded ?Confirmed ?Type lactobacillus combination no.8 3 3,000 mmu cells PO QD AY 08/12/17 10/07/24 History billion cell capsule (Adult Probiotic) omega-3 fatty acids 1,000 mg 1,000 mg PO QDAY 08/12/17 10/07/24 History capsule (Fish Oil Concentrate) vit C 150 mg-vit E 30 unit-lutein 1 cap PO BID 8 10/07/24 History 5 yh-bkxuobxh-giekf 3 150 mg capsule (Ocuvite) cholecalciferol (vitamin D3) 25 2,000 unit PO BID 10/1410/07/24 History mcg (1,000 unit) capsule aspirin 81 mg tablet,delayed 162 mg PO QDAY 12/27/18 0 10/07/24 History release levothyroxine 50 mcg tablet 50 mcg PO DAILY 12/27/18 0 10/07/24 History donepezil 5 mg tablet 5 mg PO DAILY 09/27/1910/07 History ascorbic acid (vitamin C) 1,000 mg 1 g PO QDAY PRN 03/0410/07/24 History tablet zinc gluconate 50 mg tablet 50 mg PO DAILY 01/16/23 History Have you fallen in the past year?: No Nurse's Note: Concerned for a tick bite on upper R arm near shoulder. He reports seeing a red [place] [facility] 3 days ago. But has been healing just fine since and has no symptoms. [facility] Medical History Dilated aortic root Nonrheumatic aortic sclerosis YAZMIN (obstructive sleep apnea) Arthritis Diverticulitis GERD (gastroesophageal reflux disease) Hyperlipidemia Atherosclerotic heart disease of [place] coronary artery without angina pectoris Surgical History History of knee replacement procedure of left knee History of knee replacement procedure of right knee History of cataract surgery History of hernia repair History of cholecystectomy Family History Father CHF (congestive heart failure) Mother CAD (coronary artery disease) Sister Hypertension Social History Smoking Status: Never smoker alcohol intake: never HPI HPI Chief Complaint: Concern for Tick Bite Details: BUBBA JASMINE, is a 84 M who presents to the office today for concern for a tickbite to his right arm. Patient states he noticed a small lesion on his right arm 2 days ago and states that it was about the size of a pencil eraser. He states not seeing any ticks or other insects. He is unaware of any specific injury to the arm. He has had no fever, chills or sweats. No nausea, vomiting or diarrhea. No fatigue or bodyaches. No other associated symptoms or alleviating/aggravating factors. ROS Const Constitutional: No other (6 system ROS completed with pertinent findings in the HPI otherwise normal.) Exam Const General: cooperative and healthy appearing Resp Effort & Inspection: normal respiratory effort Cardio Rate: regular rate Skin Other: Small abrasion right upper arm without surrounding erythema or warmth. Neuro General: patient alert Psych Appearance: grossly normal Mental Status: mental status grossly normal Coding Level of Care Code Off vis,new,level 3 Diagnoses Abrasion of skin of right upper arm S40.811A Assessment and Plan Assessment and Plan (1) Abrasion of skin of right upper arm: Status: Acute Plan: Patient advised that the area is more likely a small skin abrasion and not a insect bite. Advised he may follow-up with his PCP in 4 to 6 weeks for blood testing if he wants to make sure he has not been exposed to Lyme. Advised of Lyme disease symptoms. Patient verbalized understanding and agreement with all the above. Clinical Quality Measures Falls Risk Screening/Assistive Devices Have you fallen in the past year?: No 10/07/24 1228 <Electronically signed by Girish AARON> Date _ Girish AARON Cosign Signature: Date (if applicable) CC: ~ [facility] Work Phone: Radiology Diagnostic study note 08-25-2024 Note Date & Type Note Facility 08-25-2024 Radiology Diagnostic study note [facility] Imaging Services [address] [place] [address] [id number] Abdomen Complete MR#: [id number] Acct: [id number] Name: BUBBA JASMINE Rep #: [id number] : 1940 M 84 From: Sera Boyd MD PCP: Dr. Baldomero Yen MD Status: REG CLI Study:Abdomen Complete Date of Exam: 02/07 Exam# [id number] Ordering Dr: Av Yen MD PROCEDURE: ABDOMEN COMPLETE 08/24/2024 REASON FOR EXAM: R ABD SWELLING TECHNIQUE: Complete abdominal ultrasound salguero-scale images with color doppler. PATIENT PREPARATION: Per protocol COMPARISON: None. FINDINGS: Hepatomegaly measuring 17.8 cm. Increased hepatic echogenicity suggestive of hepatic steatosis. Unremarkable hepatopetal flow in the main portal vein. Prior cholecystectomy. Nondilated common bile duct measuring 6 mm. Unremarkable visualized pancreas. Unremarkable right kidney measuring 11 x 6 x 5.4 cm with a renal cortical thickness measuring 1.5 cm. Unremarkable left kidney measuring 11.5 x 5.5 x 6 cm with a renal cortical thickness measuring 1.6 cm. Simple cyst is noted in the medial aspect of the left kidney measuring 5.6 x 4.8x 4.8 cm. Unremarkable spleen measuring 10.3 x 5.2 x 3.7 cm. The abdominal aorta is not visualized. Unremarkable spleen measuring 10.3 x 5.2 x 3.7 cm. Nonaneurysmal mid and distal aorta measuring 2.2 and 2 cm respectively. Nonvisualization of the proximal aorta secondary to overlying bowel gas. No evidence of ascites. Patent visualized IVC. US/Abdomen Complete IMPRESSION: Hepatomegaly. Hepatic steatosis. Prior cholecystectomy. Reading Location: [place] [address] CC: Dr. Baldomero Yen MD ~ Weather Clerk: Signed [facility] Evaluation note Note Date & Type Note Facility Evaluation note Diagnosis Onset Date Angina pectoris acute CAD (coronary artery disease) acute Hyperlipidemia chronic [facility] Work Phone: Evaluation note Note Date & Type Note Facility Evaluation note No assessment information availa ble [facility] Work Phone: Evaluation note Note Date & Type Note Facility Evaluation note Diagnosis Onset Date Resolution Abrasion of skin of right upper arm acute October 07, 2024 12:04pm [facility] Work Phone: Reason for referral (narrative) Note Date & Type Note Facility Reason for referral (narrative) No reason for referral information available [facility] Work Phone: Chief Complaint and Reason for Visit Chief Complaint 1 YR F/U WITH PFM EORDER Reason for Visit Angina pectoris CAD (coronary artery disease) Hyperlipidemia Chief Complaint 1 YR F/U WITH PFM EORDER ATHEROSCLEROTIC HEART DISEASE; CHEST PAIN ATHEROSCLEROTIC HEART DISEASE; CHEST PAIN Reason for Visit Angina pectoris CAD (coronary artery disease) Hyperlipidemia Chief Complaint ATHEROSCLEROTIC HEAR T DISEASE; CHEST PAIN ATHEROSCLEROTIC HEART DISEASE; CHEST PAIN Chief Complaint SOB Chief Complaint Admit Date Do abd comp for Rt abd swelling Do organ s no lump August 24, 2024 8:55am Chief Complaint Admit Date Do abd comp for Rt abd swelling Do organ s no lump August 24, 2024 8:55am TICK BITE R ARM October 07, 2024 12:0 4pm Reason for Visit Admit Date Abrasion of skin of right upper arm October 07, 2024 12:04pm Family History No Family History Records Found Relationship Condition Age at Onset Recorded Date/T buffy father Congestive heart failure Unknown mother Coronary artery disease Unknown sister Hypertension Unknown Advance Directives No Advanced Directives Records Found Advance Directive Response Recorded Date/ Time Living Will Yes September 27, 2019 7:30pm Power of Waiter/Waitress Counter Yes September 26 0 7:30pm Advance Directive Response Recorded Date/ Time Living Will Yes September 27, 2019 6:30pm Power of Waiter/Waitress Counter Yes September 26 0 6:30pm Summary Purpose Additional Source Comments Goals (unrecognized section and content) Goals may be documented in a n alternate sectionGoals may be documented in an alternate sectionGoals may be documented in an alternate sectionGoals may be documented in an alternate sectionGoals may be documented in an alternate sectionGoals may be documented in an alternate sectionGoals may be documented in an alternate section Care Teams (unrecognized sec tion and content) Team Status: Active Member Role Status Dates Dr. Michael Yen MD Family Provider Active Dr. Michael Yen MD Primary Care Provider Activ e Team Status: Active Member Role Status Dates Dr. Michael Yen MD Primary Care Provider Activ e Dr. Richar Treadwell MD Attending Provider, Other Prov ider Active Dr. Richar Treadwell MD Referring Provider Active Team Status: Inactive Member Role Status Dates Dr. Michael Yen MD Primary Care Provider Activ e Dr. Richar Treadwell MD Attending Provider Active Dr. Richar Treadwell MD Referring Provider Active Team Status: Inactive Member Role Status Dates Dr. Michael Yen MD Primary Care Provider, Attending Provider, Referring Provider Active Team Status: Inactive Member Role Status Dates Dr. Michael Yen MD Primary Care Provider Activ e Dr. Taiwo Fox MD Attending Provider, Referrin g Provider Active Team Status: Active Member Role Status Dates Dr. Baldomero Yen MD Primary Care Provider Acti ve Team Status: Inactive Member Role Status Dates Dr. Baldomero Yen MD Primary Care Provider Acti ve Start: August 16, 2024 End: August 16, 2024 Dr. Baldomero Yen MD Attending Provider Active Start: August 16, 2024 End: August 16, 2024 Dr. Baldomero Yen MD Referring Provider Active Start: August 16, 2024 End: August 16, 2024 Team Status: Inactive Member Role Status Dates Dr. Baldomero Yen MD Primary Care Provider Acti ve Start: August 24, 2024 End: August 24, 2024 Dr. Baldomero Yen MD Attending Provider Active Start: August 24, 2024 End: August 24, 2024 Dr. Baldomero Yen MD Referring Provider Active Start: August 24, 2024 End: August 24, 2024 Team Status: Active Member Role/Relationship Status Dates Dr. Baldomero Yen MD Primary Care Provider Acti ve Team Status: Inactive Member Role/Relationship Status Dates Dr. Baldomero Yen MD Primary Care Provider Acti ve Start: August 16, 2024 End: August 16, 2024 Dr. Baldomero Yen MD Attending Provider Active Start: August 16, 2024 End: August 16, 2024 Dr. Baldomero Yen MD Referring Provider Active Start: August 16, 2024 End: August 16, 2024 Team Status: Inactive Member Role/Relationship Status Dates Dr. Baldomero Yen MD Primary Care Provider Acti ve Start: August 24, 2024 End: August 24, 2024 Dr. Baldomero Yen MD Attending Provider Active Start: August 24, 2024 End: August 24, 2024 Dr. Baldomero Yen MD Referring Provider Active Start: August 24, 2024 End: August 24, 2024 Team Status: Inactive Member Role/Relationship Status Dates Dr. Baldomero Yen MD Primary Care Provider Acti ve Start: October 07, 2024 End: October 07, 2024 Dr. Baldomero Yen MD Referring Provider Active Start: October 07, 2024 End: October 07, 2024 GALEN Ramos Attending Provider Active Sta rt: October 07, 2024 End: October 07, 2024 (unrecognized sect ion and content) No Status Records Found INFORMATION SOURCE (unrecogn ized section and content) DATE CREATED AUTHOR 10/08/2024 [facility] FOR RECORDS PERTAINING TO PATIENTS WHO ARE OR HAVE BEEN ENROLLED IN A CHEMICAL DEPENDENCY/SUBSTANCEABUSE PROGRAM, SOME INFORMATION MAY BE OMITTED. This clinical summary was aggregated from multiple sources. Caution should be exercised in using it in the provision of clinical care. This summary normalizes information from multiple sources, and as a consequence, information in this document may materially change the coding, format and clinical context of patient data. In addition, data may be omitted in some cases. CLINICAL DECISIONS SHOULD BE BASED ON THE PRIMARY CLINICAL RECORDS. [employer] provides no warranty or guarantee of the accuracy or completeness of information in this document.
[2025-02-14 13:17] LABS: Anion Gap 12 (5-15); BUN 15 mg/dL (4-19); BUN/Creat Ratio 17.2 RATIO (10-20); Calcium,Total 9.4 mg/dL (7.6-11.0); Carbon Dioxide 25.3 mmol/L (21.0-32.0); Chloride 103 mmol/L (98-108); Cholesterol 193 mg/dL (<=200); Glucose 93 mg/dL (70-99); Low Density Lipoprotein Calc. 111 mg/dL; Potassium 4.3 mmol/L (3.3-5.1); Triglycerides 221 mg/dL; Uric Acid 7.5 mg/dL (3.5-7.2); Very Low Density Lipoprotein 44 mg/dL (5-40); Vitamin D,25 Hydroxy 35.6 ng/mL (30-100); cholesterol:hdl ratio screen 4.47
== END | disposition home or self-care (01) ==
LOC: MTLAB 09:23
PROVIDERS: PCP Family Medicine; Referring Provider Family Medicine; Visit Provider Family Medicine
DX: R73.01 Impaired fasting glucose (principal); M10.9 Gout, unspecified; E03.9 Hypothyroidism, unspecified
CPT/HCPCS: 36415; 80048; 80061; 82306; 84443; 84550